=== PATIENT | female | born 1935 | race Caucasian/White ===

== ENCOUNTER 2017-09-15 15:49 | Inpatient (IN) | payer OTHER ==
[~2017-09-15] VITALS: Ht 165.1 cm; Wt 82.2 kg
[~2017-09-15 15:49] MED LIST: (None)20 M1 PO; ACET325 PO; ALBU90OI INH; ALBU90OI6 INH; ALBU90OI61 INH; ALEN70 PO; ALUM-MAG HYDRO360 ML PO; ALUMAG30SU PO; AMLO10 PO; AMOCLA875 PO; AMOX500 PO; ANORO ELLIPTA1 EACH INH; ANTAC+SIM PO; ARTIFICIAL TEAR30 ML BOTHEYES; ASPERCREME1 EACH TOP; ASPERCREME76.5 GM TOP; ASPI81EC PO; AZIT250 PO; AZIT500 PO; Acidophilus La100 GM PO; Advair Hfa 230-12 GM INH; Amoxicillin500 M1 PO; Aspir 8181 MG PO; BISA10S PR; BUDE.5 NEB; Bactrim 400-801 EACH PO; Biscolax10 MG PR; Brovana15 MCG/2 M INH; CALCA500CH PO; CALZINTL; CELE200 PO; CHLO25B PO; CHOL10002 PO; CIPR500 PO; CLARITIN10 MG PO; CLON.1 PO; CLON.3 PO; CODGUAEL PO; CVS DISPOSABLE399 ML; Calcium Carb 51 EACH PO; Calcium Carbon500 MG PO; Coumadin5 MG PO; DOCU100 PO; Diflucan200 MG PO; ENOX30I SC; Enema133 M1 PR; FAMO20 PO; FERR325 PO; FLUSAL2505 INH; FLUSAL5005 IH; FLUSAL5005 INH; FURO40 PO; Ferus150 MG PO; Fleet Enema132 ML PR; GENTAMICIN NEB; GENTEAL TEARS 015 M1 OP; GLYCAS PR; GUAI600T33 PO; HYDMETSO; HYDMETSO BOTHEYES; HYDR1TAB94 PO; HYDROGEN PEROXIDE TOP; Hair, Skin & N1 EACH PO; Humalog100 UNIT/1 SC; Hydrocodone-Ap1 EA23 PO; IPRAIS NEB; K-Dur20 MEQ PO; LEVFLO250; LEVO750 PO; LOPE2C PO; LORA10 PO; LORATADINE10 MG PO; Loperamide2 MG PO; Lopressor 25 mg25 MG PO; MELA3 PO; METF500 PO; METF500C PO; METO25 PO; METO50 PO; METPRE4DP PO; MULT50L PO; MULTI VITAMIN1 EACH PO; MULVITMIND PO; Micro-K10 MEQ PO; Milk Of Ma400 MG/5 M PO; NIFE30ER PO; NYST100000 PO; NYST100SU MT; NYST100SU SS; NYSTATIN TOP; Norco 5-325 Ta1 EACH PO; OMEP20ER PO; OMEPRAZOLE MAGN20 MG PO; ONDA4 PO; ONDA4ODT; ONDA4ODT MM; ONDA4ODT PO; ONDA8 PO; OXYACE5T PO; Omeprazole20 M1 PO; PHENERGAN25 MG PR; POLY17UD PO; POTCHL10ER PO; PRED10 PO; PRED20 PO; PRED5 PO; PROM12.5S PR; PROP30DR BOTHEYES; PYRI60 PO; Percocet 5-3251 EACH PO; Polysaccharide150 MG PO; Prednisone20 MG PO; QUET25 PO; SENN187 PO; SPIR50 PO; SYSTANE; Secura Protecti50 GM TOP; Senexon8.6 MG PO; Senna8.6 M1 PO; Senna8.6 MG PO; Systane 0.3-0.415 ML BOTHEYES; THERA TEARS BOTHEYES; TIOT18 INH; VITA&DTO TOP; VITAMIN D32000 UNIT PO; Ventolin Soln3 ML INH; Ventolin5 MG/1 ML INH; WARF10 PO; WARF3 PO; WARF4 PO; WARF5 PO; WARF6 PO; WARF7.5 PO; ZIPR20 PO; Zithromax200 MG/5 M PO; Zithromax250 MG PO; Zofran Odt4 MG SL; Zofran8 MG PO; [UNRECOGNIZED DRUG - OTHER] BOTHEYES; [UNRECOGNIZED DRUG - OTHER] TP
[2017-09-15] MEDS ORDERED: Ferus150 MG PO (16:34)
[2017-09-15] MEDS ORDERED: SACC250C PO (16:36)
[2017-09-15] MEDS ORDERED: FURO20 PO ×2 (16:38)
[2017-09-15] MEDS ORDERED: PRED10 PO (16:41)
[2017-09-15] MEDS ORDERED: PRED20 PO (16:41)
[2017-09-15 16:45] LABS: BASOPHILS ABSOLUTE AUTO 0.03 K/mm3 (0.00-0.23); BASOPHILS PERCENT AUTO 0 % (0-2); EOSINOPHILS ABSOLUTE AUTO 0.04 K/mm3 (0.00-0.68); EOSINOPHILS PERCENT AUTO 0 % (0-6); Hematocrit 50.6 % (33.0-51.0); Hemoglobin 16.1 g/dL (11.5-16.0); IMMATURE GRAN ABSOLUTE AUTO 0.13 K/mm3 (0.00-0.10); IMMATURE GRAN PERCENT AUTO 1 % (0-1); LYMPHOCYTES ABSOLUTE AUTO 1.75 K/mm3 (0.84-5.20); LYMPHOCYTES PERCENT AUTO 9 % (21-46); MONOCYTES ABSOLUTE AUTO 1.42 K/mm3 (0.16-1.47); MONOCYTES PERCENT AUTO 8 % (4-13); Mean Corpuscular HGB 30.6 pg (26.0-34.0); Mean Corpuscular HGB Conc 31.8 g/dL (31.5-36.5); Mean Corpuscular Volume 96 fL (80-100); Mean Platelet Volume 11.1 fL (9.1-12.4); NEUTROPHILS ABSOLUTE AUTO 15.58 K/mm3 (1.96-9.15); NEUTROPHILS PERCENT AUTO 82 % (41-73); Platelet Count 219 K/mm3 (150-400); RDW Coefficient Variation 15.9 % (11.7-14.2); RDW Standard Deviation 52.8 fL (35.1-46.3); Red Blood Cell Count 5.27 M/mm3 (3.80-5.20); White Blood Cell Count 18.95 K/mm3 (4.00-11.30)
[2017-09-15] MEDS ORDERED: ALBU90OI61 INH (16:45)
[2017-09-15 17:05] LABS: International Normalized Ratio 1.68; Prothrombin Time Results 17.8 Sec (9.7-11.5)
[2017-09-15 17:12] LABS: Source, Urine Catheter
[2017-09-15 17:17] LABS: Bilirubin, Urine Neg (Neg); Blood, Urine 1+ (Neg); Glucose Qualitative, Urine Neg (Neg); Ketones, Urine Neg (Neg); Leukocyte Esterase, Urine Neg (Neg); Nitrite, Urine Neg (Neg); Protein, Urine 2+ (Neg); Specific Gravity, Urine 1.015 (1.003-1.022); Urobilinogen, Urine NORM (Normal)
[2017-09-15 17:17] LABS: Albumin, Blood 3.4 g/dL (3.4-5.0); Albumin/Globulin Ratio 0.8 (0.8-1.8); Bilirubin, Total 0.7 mg/dL (0.1-1.0); Bun/Creatinine Ratio 21.6 (12.0-20.0); Calcium, Blood 9.2 mg/dL (8.5-10.1); Creatinine, Blood 1.11 mg/dL (0.40-1.00); Globulin, Blood 4.1 g/dL (2.2-4.0); Potassium, Blood 3.8 mmol/L (3.5-5.5); Total Protein, Blood 7.5 g/dL (6.4-8.2)
[2017-09-15 17:38] LABS: Appearance, Urine Clear (Clear); Bacteria Not Seen /hpf; Color, Urine Pale Yellow (P-Yellow); Red Blood Cells, Urine Not Seen /hpf (0-2); Squamous Epithelial Cells Not Seen /hpf (Few); White Blood Cells, Urine Not Seen /hpf (0-5)
[2017-09-15] MEDS ORDERED: ANORO ELLIPTA1 EACH INH (20:46)
[2017-09-16 03:55] LABS: International Normalized Ratio 1.6; Prothrombin Time Results 16.9 Sec (9.7-11.5)
[2017-09-16 09:58] LABS: BASOPHILS ABSOLUTE AUTO 0.03 K/mm3 (0.00-0.23); BASOPHILS PERCENT AUTO 0 % (0-2); EOSINOPHILS PERCENT AUTO 0 % (0-6); Hematocrit 43.1 % (33.0-51.0); Hemoglobin 13.5 g/dL (11.5-16.0); IMMATURE GRAN ABSOLUTE AUTO 0.07 K/mm3 (0.00-0.10); IMMATURE GRAN PERCENT AUTO 0 % (0-1); LYMPHOCYTES ABSOLUTE AUTO 0.65 K/mm3 (0.84-5.20); LYMPHOCYTES PERCENT AUTO 4 % (21-46); MONOCYTES ABSOLUTE AUTO 0.27 K/mm3 (0.16-1.47); MONOCYTES PERCENT AUTO 2 % (4-13); Mean Corpuscular HGB 30.9 pg (26.0-34.0); Mean Corpuscular HGB Conc 31.3 g/dL (31.5-36.5); Mean Corpuscular Volume 99 fL (80-100); Mean Platelet Volume 11.8 fL (9.1-12.4); NEUTROPHILS ABSOLUTE AUTO 15.29 K/mm3 (1.96-9.15); NEUTROPHILS PERCENT AUTO 94 % (41-73); Platelet Count 180 K/mm3 (150-400); RDW Coefficient Variation 15.9 % (11.7-14.2); RDW Standard Deviation 55.3 fL (35.1-46.3); Red Blood Cell Count 4.37 M/mm3 (3.80-5.20); White Blood Cell Count 16.31 K/mm3 (4.00-11.30)
[2017-09-16 10:28] LABS: Calcium, Blood 7.6 mg/dL (8.5-10.1); Creatinine, Blood 1.21 mg/dL (0.40-1.00); Potassium, Blood 4.2 mmol/L (3.5-5.5)
[2017-09-17 04:17] LABS: BASOPHILS ABSOLUTE AUTO 0.01 K/mm3 (0.00-0.23); BASOPHILS PERCENT AUTO 0 % (0-2); EOSINOPHILS PERCENT AUTO 0 % (0-6); Hematocrit 40.9 % (33.0-51.0); IMMATURE GRAN PERCENT AUTO 1 % (0-1); LYMPHOCYTES ABSOLUTE AUTO 0.69 K/mm3 (0.84-5.20); LYMPHOCYTES PERCENT AUTO 4 % (21-46); MONOCYTES ABSOLUTE AUTO 0.44 K/mm3 (0.16-1.47); MONOCYTES PERCENT AUTO 3 % (4-13); Mean Corpuscular HGB 30.8 pg (26.0-34.0); Mean Corpuscular HGB Conc 31.8 g/dL (31.5-36.5); Mean Corpuscular Volume 97 fL (80-100); Mean Platelet Volume 11.4 fL (9.1-12.4); NEUTROPHILS PERCENT AUTO 92 % (41-73); Platelet Count 159 K/mm3 (150-400); RDW Coefficient Variation 15.7 % (11.7-14.2); RDW Standard Deviation 53.8 fL (35.1-46.3); Red Blood Cell Count 4.22 M/mm3 (3.80-5.20); White Blood Cell Count 15.84 K/mm3 (4.00-11.30)
[2017-09-17 04:32] LABS: International Normalized Ratio 2.01; Prothrombin Time Results 21.4 Sec (9.7-11.5)
[2017-09-17 04:34] LABS: Bun/Creatinine Ratio 31.5 (12.0-20.0); Calcium, Blood 7.5 mg/dL (8.5-10.1); Creatinine, Blood 1.08 mg/dL (0.40-1.00); Potassium, Blood 4.6 mmol/L (3.5-5.5)
[2017-09-17 21:21] LABS: Vancomycin, Trough 9.1 ug/mL (5.0-10.0)
[2017-09-18 05:10] LABS: BASOPHILS ABSOLUTE AUTO 0.01 K/mm3 (0.00-0.23); BASOPHILS PERCENT AUTO 0 % (0-2); EOSINOPHILS PERCENT AUTO 0 % (0-6); Hematocrit 39.7 % (33.0-51.0); Hemoglobin 12.7 g/dL (11.5-16.0); IMMATURE GRAN ABSOLUTE AUTO 0.14 K/mm3 (0.00-0.10); IMMATURE GRAN PERCENT AUTO 1 % (0-1); LYMPHOCYTES ABSOLUTE AUTO 0.41 K/mm3 (0.84-5.20); LYMPHOCYTES PERCENT AUTO 2 % (21-46); MONOCYTES ABSOLUTE AUTO 0.52 K/mm3 (0.16-1.47); MONOCYTES PERCENT AUTO 3 % (4-13); Mean Corpuscular Volume 97 fL (80-100); Mean Platelet Volume 11.7 fL (9.1-12.4); NEUTROPHILS ABSOLUTE AUTO 16.37 K/mm3 (1.96-9.15); NEUTROPHILS PERCENT AUTO 94 % (41-73); Platelet Count 153 K/mm3 (150-400); RDW Coefficient Variation 15.7 % (11.7-14.2); RDW Standard Deviation 53.1 fL (35.1-46.3); White Blood Cell Count 17.45 K/mm3 (4.00-11.30)
[2017-09-18 05:23] LABS: International Normalized Ratio 3.04; Prothrombin Time Results 32.7 Sec (9.7-11.5)
[2017-09-18 05:28] LABS: Bun/Creatinine Ratio 44.6 (12.0-20.0); Calcium, Blood 7.9 mg/dL (8.5-10.1); Creatinine, Blood 1.01 mg/dL (0.40-1.00); Potassium, Blood 4.6 mmol/L (3.5-5.5)
[2017-09-18] MEDS ORDERED: LEVFLO500 PO (14:58)
== END 2017-09-18 15:26 | disposition home or self-care (01) | DRG 871 ==
LOC: ER 15:49 → PCU 18:26 → MEDS 20:05 → PCU 20:10 → MEDS 09-17 18:12
PROVIDERS: Emergency Medicine; Family Medicine
DX: A41.9 Sepsis, unspecified organism (principal); G93.41 Metabolic encephalopathy; N17.8 Other acute kidney failure; I48.91 Unspecified atrial fibrillation; Z79.01 Long term (current) use of anticoagulants; Z79.84 Long term (current) use of oral hypoglycemic drugs; G70.00 Myasthenia gravis without (acute) exacerbation; Z79.52 Long term (current) use of systemic steroids; K21.9 Gastro-esophageal reflux disease without esophagitis; M19.90 Unspecified osteoarthritis, unspecified site; K59.09 Other constipation; Z77.22 Contact with and (suspected) exposure to environmental tobacco smoke (acute) (chronic); I16.0 Hypertensive urgency; K27.9 Peptic ulcer, site unspecified, unspecified as acute or chronic, without hemorrhage or perforation; K08.109 Complete loss of teeth, unspecified cause, unspecified class; R53.81 Other malaise; Z88.1 Allergy status to other antibiotic agents; I69.322 Dysarthria following cerebral infarction; I69.391 Dysphagia following cerebral infarction; R13.10 Dysphagia, unspecified; T36.1X5A Adverse effect of cephalosporins and other beta-lactam antibiotics, initial encounter; Y92.239 Unspecified place in hospital as the place of occurrence of the external cause; R23.2 Flushing; D89.9 Disorder involving the immune mechanism, unspecified; K52.9 Noninfective gastroenteritis and colitis, unspecified; Z85.828 Personal history of other malignant neoplasm of skin; Z87.81 Personal history of (healed) traumatic fracture; J44.9 Chronic obstructive pulmonary disease, unspecified; E09.65 Drug or chemical induced diabetes mellitus with hyperglycemia; N18.3 Chronic kidney disease, stage 3 (moderate); I12.9 Hypertensive chronic kidney disease with stage 1 through stage 4 chronic kidney disease, or unspecified chronic kidney disease; E09.22 Drug or chemical induced diabetes mellitus with diabetic chronic kidney disease
CPT/HCPCS: 36415; 70450; 71046; 80048; 80053; 80202; 81001; 82947; 83036; 83605; 84484; 85025; 85610; 92526; 92610; 93005; 93010; 94640; 94760; 96365; 96367; 96375; 97162; 97166; 97535; 99285; C9113; G8978; G8979; G8980; G8987; G8988; G8989; G8996; G8997; G8998; J1200; J1956; J2185; J2405; J2930; J3370; J7030; P9612

== ENCOUNTER → 2017-09-27 | Outpatient (CLI) | payer OTHER ==
[~2017-09-27] MED LIST changes: +ASPI81CH PO; +CEPH500 PO; +FURO20 PO; +GAVILAX17 GM PO; +LEVFLO500 PO; +SACC250C PO; +Senna Plus Tab1 EACH PO
[2017-09-27 16:24] LABS: Bilirubin, Urine Neg (Neg); Blood, Urine Neg (Neg); Glucose Qualitative, Urine Neg (Neg); Ketones, Urine Neg (Neg); Leukocyte Esterase, Urine Neg (Neg); Nitrite, Urine Neg (Neg); Protein, Urine 1+ (Neg); Specific Gravity, Urine 1.015 (1.003-1.022); Urobilinogen, Urine NORM (Normal)
[2017-09-27 16:31] LABS: Appearance, Urine Clear (Clear); Color, Urine Yellow (P-Yellow)
== END ==
LOC: LAB SHORT 13:40 → LAB 13:40
PROVIDERS: Family Medicine
DX: R39.15 Urgency of urination (principal)
CPT/HCPCS: 81003

== ENCOUNTER 2017-09-29 13:56 | Inpatient (IN) | payer OTHER ==
[~2017-09-29] VITALS: Ht 167.6 cm; Wt 79.3 kg
[~2017-09-29 13:56] MED LIST changes: -ASPI81CH PO; -CEPH500 PO; -GAVILAX17 GM PO; -Senna Plus Tab1 EACH PO
[2017-09-29] MEDS ORDERED: LOPE2C PO (14:33)
[2017-09-29 14:36] LABS: BASOPHILS ABSOLUTE AUTO 0.04 K/mm3 (0.00-0.23); BASOPHILS PERCENT AUTO 0 % (0-2); EOSINOPHILS ABSOLUTE AUTO 0.01 K/mm3 (0.00-0.68); EOSINOPHILS PERCENT AUTO 0 % (0-6); Hematocrit 45.8 % (33.0-51.0); Hemoglobin 14.8 g/dL (11.5-16.0); IMMATURE GRAN ABSOLUTE AUTO 0.12 K/mm3 (0.00-0.10); IMMATURE GRAN PERCENT AUTO 1 % (0-1); LYMPHOCYTES ABSOLUTE AUTO 1.68 K/mm3 (0.84-5.20); LYMPHOCYTES PERCENT AUTO 10 % (21-46); MONOCYTES ABSOLUTE AUTO 0.79 K/mm3 (0.16-1.47); MONOCYTES PERCENT AUTO 5 % (4-13); Mean Corpuscular HGB 31.1 pg (26.0-34.0); Mean Corpuscular HGB Conc 32.3 g/dL (31.5-36.5); Mean Corpuscular Volume 96 fL (80-100); Mean Platelet Volume 10.7 fL (9.1-12.4); NEUTROPHILS ABSOLUTE AUTO 14.41 K/mm3 (1.96-9.15); NEUTROPHILS PERCENT AUTO 85 % (41-73); Platelet Count 216 K/mm3 (150-400); RDW Coefficient Variation 14.7 % (11.7-14.2); RDW Standard Deviation 51.8 fL (35.1-46.3); Red Blood Cell Count 4.76 M/mm3 (3.80-5.20); White Blood Cell Count 17.05 K/mm3 (4.00-11.30)
[2017-09-29 14:49] LABS: Source, Urine Clean Catch
[2017-09-29 14:52] LABS: International Normalized Ratio 2.19; Prothrombin Time Results 21.6 Sec (9.7-11.5)
[2017-09-29 14:53] LABS: Bilirubin, Urine Neg (Neg); Blood, Urine Neg (Neg); Glucose Qualitative, Urine Neg (Neg); Ketones, Urine Neg (Neg); Leukocyte Esterase, Urine Neg (Neg); Nitrite, Urine Neg (Neg); Protein, Urine 1+ (Neg); Specific Gravity, Urine 1.015 (1.003-1.022); Urobilinogen, Urine NORM (Normal)
[2017-09-29 15:11] LABS: Appearance, Urine Clear (Clear); Color, Urine Yellow (P-Yellow)
[2017-09-29 17:16] LABS: Alanine Aminotransfer (ALT/SGP 41 U/L (12-78); Albumin, Blood 2.9 g/dL (3.4-5.0); Albumin/Globulin Ratio 0.8 (0.8-1.8); Alk Phos 50 U/L (50-136); Anion Gap 9 mmol/L (6-16); Aspartate Aminotrans (AST/SGOT 39 U/L (12-37); Bilirubin, Total 0.6 mg/dL (0.1-1.0); Blood Urea Nitrogen 26 mg/dL (8-24); Bun/Creatinine Ratio 26.4 (12.0-20.0); CO2, Blood 28 mmol/L (21-32); Calcium, Blood 8.9 mg/dL (8.5-10.1); Chloride, Blood 103 mmol/L (98-108); Creatinine, Blood 0.98 mg/dL (0.40-1.00); Globulin, Blood 3.5 g/dL (2.2-4.0); Glomerular Filtration Rate 58 (60-); Glucose, Blood 170 mg/dL (70-99); Potassium, Blood 4.1 mmol/L (3.5-5.5); Sodium, Blood 140 mmol/L (136-145); Total Protein, Blood 6.4 g/dL (6.4-8.2); Troponin I <0.015 ng/mL (0.000-0.040)
[2017-09-30 03:47] LABS: Hematocrit 43.6 % (33.0-51.0); Hemoglobin 14.2 g/dL (11.5-16.0); Mean Corpuscular HGB 30.9 pg (26.0-34.0); Mean Corpuscular HGB Conc 32.6 g/dL (31.5-36.5); Mean Corpuscular Volume 95 fL (80-100); Platelet Count 203 K/mm3 (150-400); RDW Coefficient Variation 15.1 % (11.7-14.2); RDW Standard Deviation 51.8 fL (35.1-46.3); Red Blood Cell Count 4.59 M/mm3 (3.80-5.20); White Blood Cell Count 17.99 K/mm3 (4.00-11.30)
[2017-09-30 04:09] LABS: Albumin, Blood 2.7 g/dL (3.4-5.0); Albumin/Globulin Ratio 0.9 (0.8-1.8); Bun/Creatinine Ratio 15.3 (12.0-20.0); Calcium, Blood 8.3 mg/dL (8.5-10.1); Creatinine, Blood 1.83 mg/dL (0.40-1.00); Globulin, Blood 3.1 g/dL (2.2-4.0); Potassium, Blood 3.8 mmol/L (3.5-5.5); Total Protein, Blood 5.8 g/dL (6.4-8.2)
[2017-09-30] MEDS ORDERED: SACC250C PO (11:30)
[2017-09-30] MEDS ORDERED: WARF4 PO (11:33)
[2017-10-01 04:00] LABS: BASOPHILS ABSOLUTE AUTO 0.03 K/mm3 (0.00-0.23); BASOPHILS PERCENT AUTO 0 % (0-2); EOSINOPHILS ABSOLUTE AUTO 0.06 K/mm3 (0.00-0.68); EOSINOPHILS PERCENT AUTO 0 % (0-6); Hematocrit 39.8 % (33.0-51.0); Hemoglobin 12.5 g/dL (11.5-16.0); IMMATURE GRAN ABSOLUTE AUTO 0.12 K/mm3 (0.00-0.10); IMMATURE GRAN PERCENT AUTO 1 % (0-1); LYMPHOCYTES PERCENT AUTO 9 % (21-46); MONOCYTES ABSOLUTE AUTO 1.42 K/mm3 (0.16-1.47); MONOCYTES PERCENT AUTO 9 % (4-13); Mean Corpuscular HGB 30.5 pg (26.0-34.0); Mean Corpuscular HGB Conc 31.4 g/dL (31.5-36.5); Mean Corpuscular Volume 97 fL (80-100); Mean Platelet Volume 11.5 fL (9.1-12.4); NEUTROPHILS ABSOLUTE AUTO 13.23 K/mm3 (1.96-9.15); NEUTROPHILS PERCENT AUTO 81 % (41-73); Platelet Count 167 K/mm3 (150-400); RDW Coefficient Variation 15.1 % (11.7-14.2); RDW Standard Deviation 53.6 fL (35.1-46.3); White Blood Cell Count 16.26 K/mm3 (4.00-11.30)
[2017-10-01 04:19] LABS: Albumin, Blood 2.4 g/dL (3.4-5.0); Anion Gap 7 mmol/L (6-16); Blood Urea Nitrogen 37 mg/dL (8-24); Bun/Creatinine Ratio 26.4 (12.0-20.0); CO2, Blood 31 mmol/L (21-32); Calcium, Blood 7.4 mg/dL (8.5-10.1); Chloride, Blood 105 mmol/L (98-108); Glomerular Filtration Rate 38 (60-); Glucose, Blood 83 mg/dL (70-99); Phosphorus, Blood 3.3 mg/dL (2.5-4.9); Potassium, Blood 3.7 mmol/L (3.5-5.5); Sodium, Blood 143 mmol/L (136-145)
[2017-10-01 10:38] LABS: Source, Urine Clean Catch
[2017-10-01 10:47] LABS: Bilirubin, Urine Neg (Neg); Blood, Urine 1+ (Neg); Glucose Qualitative, Urine Neg (Neg); Ketones, Urine Neg (Neg); Leukocyte Esterase, Urine 1+ (Neg); Nitrite, Urine Neg (Neg); Protein, Urine 2+ (Neg); Urobilinogen, Urine NORM (Normal)
[2017-10-01 11:16] LABS: Appearance, Urine Clear (Clear); Color, Urine Yellow (P-Yellow)
[2017-10-01 11:18] LABS: Bacteria Few /hpf; Red Blood Cells, Urine 0-2 /hpf (0-2); Squamous Epithelial Cells Few /hpf (Few)
[2017-10-02 03:51] LABS: BASOPHILS ABSOLUTE AUTO 0.03 K/mm3 (0.00-0.23); BASOPHILS PERCENT AUTO 0 % (0-2); EOSINOPHILS PERCENT AUTO 1 % (0-6); Hematocrit 34.5 % (33.0-51.0); Hemoglobin 11.1 g/dL (11.5-16.0); IMMATURE GRAN ABSOLUTE AUTO 0.12 K/mm3 (0.00-0.10); IMMATURE GRAN PERCENT AUTO 1 % (0-1); LYMPHOCYTES ABSOLUTE AUTO 1.16 K/mm3 (0.84-5.20); LYMPHOCYTES PERCENT AUTO 7 % (21-46); MONOCYTES ABSOLUTE AUTO 1.15 K/mm3 (0.16-1.47); MONOCYTES PERCENT AUTO 7 % (4-13); Mean Corpuscular HGB 30.9 pg (26.0-34.0); Mean Corpuscular HGB Conc 32.2 g/dL (31.5-36.5); Mean Corpuscular Volume 96 fL (80-100); Mean Platelet Volume 11.1 fL (9.1-12.4); NEUTROPHILS ABSOLUTE AUTO 13.24 K/mm3 (1.96-9.15); NEUTROPHILS PERCENT AUTO 84 % (41-73); Platelet Count 147 K/mm3 (150-400); RDW Coefficient Variation 14.6 % (11.7-14.2); RDW Standard Deviation 50.9 fL (35.1-46.3); Red Blood Cell Count 3.59 M/mm3 (3.80-5.20)
[2017-10-02 04:10] LABS: Albumin, Blood 2.2 g/dL (3.4-5.0); Anion Gap 7 mmol/L (6-16); Blood Urea Nitrogen 37 mg/dL (8-24); Bun/Creatinine Ratio 39.4 (12.0-20.0); CO2, Blood 28 mmol/L (21-32); Calcium, Blood 7.6 mg/dL (8.5-10.1); Chloride, Blood 106 mmol/L (98-108); Creatinine, Blood 0.94 mg/dL (0.40-1.00); Glomerular Filtration Rate >60 (60-); Glucose, Blood 104 mg/dL (70-99); Phosphorus, Blood 1.9 mg/dL (2.5-4.9); Potassium, Blood 3.8 mmol/L (3.5-5.5); Sodium, Blood 141 mmol/L (136-145)
[2017-10-02 09:49] LABS: International Normalized Ratio 1.28
[2017-10-03 05:33] LABS: International Normalized Ratio 1.21; Prothrombin Time Results 12.3 Sec (9.7-11.5)
[2017-10-03 05:44] LABS: Albumin, Blood 2.7 g/dL (3.4-5.0); Anion Gap 10 mmol/L (6-16); Blood Urea Nitrogen 32 mg/dL (8-24); CO2, Blood 27 mmol/L (21-32); Calcium, Blood 8.4 mg/dL (8.5-10.1); Chloride, Blood 107 mmol/L (98-108); Creatinine, Blood 0.89 mg/dL (0.40-1.00); Glomerular Filtration Rate >60 (60-); Glucose, Blood 89 mg/dL (70-99); Phosphorus, Blood 1.9 mg/dL (2.5-4.9); Potassium, Blood 3.6 mmol/L (3.5-5.5); Sodium, Blood 144 mmol/L (136-145)
[2017-10-04 05:38] LABS: Anion Gap 10 mmol/L (6-16); Blood Urea Nitrogen 26 mg/dL (8-24); Bun/Creatinine Ratio 31.6 (12.0-20.0); CO2, Blood 26 mmol/L (21-32); Calcium, Blood 7.3 mg/dL (8.5-10.1); Chloride, Blood 107 mmol/L (98-108); Creatinine, Blood 0.82 mg/dL (0.40-1.00); Glomerular Filtration Rate >60 (60-); Glucose, Blood 78 mg/dL (70-99); Potassium, Blood 4.4 mmol/L (3.5-5.5); Sodium, Blood 143 mmol/L (136-145)
[2017-10-04 05:44] LABS: BASOPHILS ABSOLUTE AUTO 0.03 K/mm3 (0.00-0.23); BASOPHILS PERCENT AUTO 0 % (0-2); EOSINOPHILS PERCENT AUTO 2 % (0-6); Hematocrit 38.1 % (33.0-51.0); Hemoglobin 12.2 g/dL (11.5-16.0); IMMATURE GRAN ABSOLUTE AUTO 0.08 K/mm3 (0.00-0.10); IMMATURE GRAN PERCENT AUTO 1 % (0-1); LYMPHOCYTES ABSOLUTE AUTO 1.53 K/mm3 (0.84-5.20); LYMPHOCYTES PERCENT AUTO 11 % (21-46); MONOCYTES PERCENT AUTO 9 % (4-13); Mean Corpuscular HGB 31.1 pg (26.0-34.0); Mean Corpuscular Volume 97 fL (80-100); Mean Platelet Volume 11.6 fL (9.1-12.4); NEUTROPHILS ABSOLUTE AUTO 10.67 K/mm3 (1.96-9.15); NEUTROPHILS PERCENT AUTO 77 % (41-73); Platelet Count 175 K/mm3 (150-400); RDW Coefficient Variation 14.9 % (11.7-14.2); RDW Standard Deviation 52.7 fL (35.1-46.3); Red Blood Cell Count 3.92 M/mm3 (3.80-5.20); White Blood Cell Count 13.91 K/mm3 (4.00-11.30)
[2017-10-04 05:56] LABS: International Normalized Ratio 1.37; Prothrombin Time Results 13.9 Sec (9.7-11.5)
[2017-10-05 05:26] LABS: International Normalized Ratio 1.53; Prothrombin Time Results 15.4 Sec (9.7-11.5)
[2017-10-06 05:28] LABS: BASOPHILS ABSOLUTE AUTO 0.02 K/mm3 (0.00-0.23); BASOPHILS PERCENT AUTO 0 % (0-2); EOSINOPHILS ABSOLUTE AUTO 0.14 K/mm3 (0.00-0.68); EOSINOPHILS PERCENT AUTO 1 % (0-6); Hematocrit 32.7 % (33.0-51.0); Hemoglobin 10.7 g/dL (11.5-16.0); IMMATURE GRAN ABSOLUTE AUTO 0.08 K/mm3 (0.00-0.10); IMMATURE GRAN PERCENT AUTO 1 % (0-1); LYMPHOCYTES ABSOLUTE AUTO 1.15 K/mm3 (0.84-5.20); LYMPHOCYTES PERCENT AUTO 7 % (21-46); MONOCYTES ABSOLUTE AUTO 1.31 K/mm3 (0.16-1.47); MONOCYTES PERCENT AUTO 7 % (4-13); Mean Corpuscular HGB 31.8 pg (26.0-34.0); Mean Corpuscular HGB Conc 32.7 g/dL (31.5-36.5); Mean Corpuscular Volume 97 fL (80-100); Mean Platelet Volume 11.7 fL (9.1-12.4); NEUTROPHILS ABSOLUTE AUTO 15.02 K/mm3 (1.96-9.15); NEUTROPHILS PERCENT AUTO 85 % (41-73); Platelet Count 173 K/mm3 (150-400); RDW Coefficient Variation 14.9 % (11.7-14.2); RDW Standard Deviation 52.7 fL (35.1-46.3); Red Blood Cell Count 3.37 M/mm3 (3.80-5.20); White Blood Cell Count 17.72 K/mm3 (4.00-11.30)
[2017-10-06 05:38] LABS: D-Dimer, Quantitative 1.05 mg/L FEU (0.00-0.52); International Normalized Ratio 1.88; Prothrombin Time Results 18.7 Sec (9.7-11.5)
[2017-10-06 06:16] LABS: Anion Gap 8 mmol/L (6-16); Blood Urea Nitrogen 35 mg/dL (8-24); Bun/Creatinine Ratio 37.1 (12.0-20.0); CO2, Blood 30 mmol/L (21-32); Calcium, Blood 7.7 mg/dL (8.5-10.1); Chloride, Blood 102 mmol/L (98-108); Creatinine, Blood 0.94 mg/dL (0.40-1.00); Glomerular Filtration Rate >60 (60-); Glucose, Blood 150 mg/dL (70-99); Potassium, Blood 3.7 mmol/L (3.5-5.5); Sodium, Blood 140 mmol/L (136-145)
[2017-10-07 06:50] LABS: International Normalized Ratio 2.31; Prothrombin Time Results 22.7 Sec (9.7-11.5)
[2017-10-07 18:46] LABS: Source, Urine Catheter
[2017-10-07 19:23] LABS: Bilirubin, Urine Neg (Neg); Blood, Urine Neg (Neg); Glucose Qualitative, Urine Neg (Neg); Ketones, Urine Neg (Neg); Leukocyte Esterase, Urine 1+ (Neg); Nitrite, Urine Neg (Neg); Protein, Urine Neg (Neg); Urobilinogen, Urine NORM (Normal)
[2017-10-07 19:34] LABS: Appearance, Urine Clear (Clear); Color, Urine Yellow (P-Yellow)
[2017-10-07 19:35] LABS: Bacteria Few /hpf; Red Blood Cells, Urine 0-2 /hpf (0-2); Squamous Epithelial Cells Not Seen /hpf (Few); Yeast/Fungi Urine Mod /hpf
[2017-10-08 05:42] LABS: BASOPHILS ABSOLUTE AUTO 0.02 K/mm3 (0.00-0.23); BASOPHILS PERCENT AUTO 0 % (0-2); EOSINOPHILS ABSOLUTE AUTO 0.29 K/mm3 (0.00-0.68); EOSINOPHILS PERCENT AUTO 3 % (0-6); Hematocrit 34.7 % (33.0-51.0); Hemoglobin 11.1 g/dL (11.5-16.0); IMMATURE GRAN ABSOLUTE AUTO 0.08 K/mm3 (0.00-0.10); IMMATURE GRAN PERCENT AUTO 1 % (0-1); LYMPHOCYTES ABSOLUTE AUTO 1.36 K/mm3 (0.84-5.20); LYMPHOCYTES PERCENT AUTO 14 % (21-46); MONOCYTES ABSOLUTE AUTO 1.14 K/mm3 (0.16-1.47); MONOCYTES PERCENT AUTO 12 % (4-13); Mean Corpuscular HGB 30.7 pg (26.0-34.0); Mean Corpuscular Volume 96 fL (80-100); Mean Platelet Volume 11.9 fL (9.1-12.4); NEUTROPHILS ABSOLUTE AUTO 6.64 K/mm3 (1.96-9.15); NEUTROPHILS PERCENT AUTO 70 % (41-73); Platelet Count 248 K/mm3 (150-400); RDW Coefficient Variation 14.6 % (11.7-14.2); RDW Standard Deviation 51.1 fL (35.1-46.3); Red Blood Cell Count 3.62 M/mm3 (3.80-5.20); White Blood Cell Count 9.53 K/mm3 (4.00-11.30)
[2017-10-08 05:55] LABS: International Normalized Ratio 2.89
[2017-10-08 06:04] LABS: Albumin, Blood 2.2 g/dL (3.4-5.0); Anion Gap 9 mmol/L (6-16); Blood Urea Nitrogen 24 mg/dL (8-24); Bun/Creatinine Ratio 25.9 (12.0-20.0); CO2, Blood 31 mmol/L (21-32); Calcium, Blood 8.2 mg/dL (8.5-10.1); Chloride, Blood 101 mmol/L (98-108); Creatinine, Blood 0.93 mg/dL (0.40-1.00); Glomerular Filtration Rate >60 (60-); Glucose, Blood 79 mg/dL (70-99); Magnesium, Blood 2.1 mg/dL (1.6-2.4); Phosphorus, Blood 4.1 mg/dL (2.5-4.9); Potassium, Blood 3.5 mmol/L (3.5-5.5); Sodium, Blood 141 mmol/L (136-145)
[2017-10-09 05:24] LABS: International Normalized Ratio 3.69; Prothrombin Time Results 35.3 Sec (9.7-11.5)
[2017-10-09] MEDS ORDERED: CEPH500 PO (12:30)
[2017-10-09] MEDS ORDERED: ASPI81CH PO (12:30)
[2017-10-09] MEDS ORDERED: CHLO25B PO (12:30)
[2017-10-09] MEDS ORDERED: MELA3 PO (12:31)
[2017-10-09] MEDS ORDERED: METO50 PO (12:31)
[2017-10-09] MEDS ORDERED: NYST100000 PO (12:31)
[2017-10-09] MEDS ORDERED: Senna Plus Tab1 EACH PO (12:32)
[2017-10-09] MEDS ORDERED: GAVILAX17 GM PO (12:32)
== END 2017-10-09 14:31 | disposition home health service (06) | DRG 77 ==
LOC: ER 13:56 → ICUW 16:31 → PCU 16:31 → MEDS 16:31 → PCU 18:03 → ICUW 09-30 08:50 → MEDS 10-02 14:58 → ENPENDDIS 10-09 11:14 → MEDS 10-09 14:31
PROVIDERS: Emergency Medicine; Internal Medicine; Pharmacist; Pharmacist Pharmacotherapy
DX: I67.4 Hypertensive encephalopathy (principal); N17.0 Acute kidney failure with tubular necrosis; I13.0 Hypertensive heart and chronic kidney disease with heart failure and stage 1 through stage 4 chronic kidney disease, or unspecified chronic kidney disease; R44.3 Hallucinations, unspecified; B37.0 Candidal stomatitis; I16.0 Hypertensive urgency; Z99.81 Dependence on supplemental oxygen; J44.9 Chronic obstructive pulmonary disease, unspecified; Z79.01 Long term (current) use of anticoagulants; Z66 Do not resuscitate; K21.9 Gastro-esophageal reflux disease without esophagitis; G70.00 Myasthenia gravis without (acute) exacerbation; I95.9 Hypotension, unspecified; T46.5X5A Adverse effect of other antihypertensive drugs, initial encounter; Y92.239 Unspecified place in hospital as the place of occurrence of the external cause; D69.2 Other nonthrombocytopenic purpura; N76.0 Acute vaginitis; I67.9 Cerebrovascular disease, unspecified; E11.22 Type 2 diabetes mellitus with diabetic chronic kidney disease; N18.9 Chronic kidney disease, unspecified; R53.1 Weakness
CPT/HCPCS: 36415; 51702; 70450; 71046; 80048; 80053; 80069; 81001; 82947; 83605; 83735; 83880; 84145; 84484; 85025; 85027; 85379; 85384; 85610; 85730; 87040; 87086; 92610; 93005; 93010; 93880; 94640; 94760; 96374; 96375; 97116; 97163; 97166; 97530; 97535; 99285; G8978; G8979; G8987; G8988; G8996; G8997; G8998; J0360; J0692; J1940; J1956; J2405; J7030; J7050

== ENCOUNTER 2017-11-24 14:28 | Emergency (ER) | payer OTHER ==
[~2017-11-24] VITALS: Ht 165.1 cm; Wt 86.2 kg
[~2017-11-24 14:28] MED LIST changes: +ALBU3IS INH; +ASPI81CH PO; +CEPH500 PO; +Calcium + Vita1 EACH PO; +FLUT1DIS5 INH; +GAVILAX17 GM PO; +MIRALAX17 GM PO; +SACC250C; +Senna Plus Tab1 EACH PO; +Zofran Odt8 MG PO; +Zofran Odt8 MG SL
[2017-11-24] MEDS ORDERED: MORP20L PO (14:56)
[2017-11-24] MEDS ORDERED: CEFP200 PO (15:34)
== END 2017-11-24 15:52 | disposition home or self-care (01) ==
LOC: ER 14:28
DX: J44.0 Chronic obstructive pulmonary disease with (acute) lower respiratory infection (principal); J18.9 Pneumonia, unspecified organism; J20.9 Acute bronchitis, unspecified; I11.0 Hypertensive heart disease with heart failure; I50.9 Heart failure, unspecified; E11.9 Type 2 diabetes mellitus without complications; I48.91 Unspecified atrial fibrillation; K21.9 Gastro-esophageal reflux disease without esophagitis; Z86.73 Personal history of transient ischemic attack (TIA), and cerebral infarction without residual deficits; Z86.718 Personal history of other venous thrombosis and embolism; Z79.899 Other long term (current) drug therapy; Z79.52 Long term (current) use of systemic steroids; Z79.51 Long term (current) use of inhaled steroids
CPT/HCPCS: 71046; 99283-25

== ENCOUNTER 2018-02-18 08:30 | Emergency (ER) | payer OTHER ==
[~2018-02-18] VITALS: Ht 167.6 cm; Wt 75.3 kg
[~2018-02-18 08:30] MED LIST changes: +Advair Hfa 230-12 GM; +CEFP200 PO; +COMBIVENT RESPIM4 GM INH; +ELIQUIS2.5 MG PO; +K-TAB ER20 MEQ PO; +METO25; +MORP20L PO; -Senna Plus Tab1 EACH PO; +Senna-Docusate1 EACH PO; -Zofran Odt8 MG PO
[2018-02-18 08:51] LABS: Source, Urine Catheter
[2018-02-18 09:00] LABS: BASOPHILS ABSOLUTE AUTO 0.03 K/mm3 (0.00-0.23); BASOPHILS PERCENT AUTO 0 % (0-2); EOSINOPHILS ABSOLUTE AUTO 0.09 K/mm3 (0.00-0.68); EOSINOPHILS PERCENT AUTO 1 % (0-6); Hematocrit 45.2 % (33.0-51.0); Hemoglobin 14.2 g/dL (11.5-16.0); IMMATURE GRAN ABSOLUTE AUTO 0.06 K/mm3 (0.00-0.10); IMMATURE GRAN PERCENT AUTO 0 % (0-1); LYMPHOCYTES ABSOLUTE AUTO 1.64 K/mm3 (0.84-5.20); LYMPHOCYTES PERCENT AUTO 10 % (21-46); MONOCYTES ABSOLUTE AUTO 1.75 K/mm3 (0.16-1.47); MONOCYTES PERCENT AUTO 11 % (4-13); Mean Corpuscular HGB 29.6 pg (26.0-34.0); Mean Corpuscular HGB Conc 31.4 g/dL (31.5-36.5); Mean Corpuscular Volume 94 fL (80-100); Mean Platelet Volume 11.7 fL (9.1-12.4); NEUTROPHILS ABSOLUTE AUTO 12.34 K/mm3 (1.96-9.15); NEUTROPHILS PERCENT AUTO 78 % (41-73); Platelet Count 181 K/mm3 (150-400); RDW Coefficient Variation 14.4 % (11.7-14.2); RDW Standard Deviation 50.1 fL (35.1-46.3); Red Blood Cell Count 4.79 M/mm3 (3.80-5.20); White Blood Cell Count 15.91 K/mm3 (4.00-11.30)
[2018-02-18 09:01] LABS: Bilirubin, Urine Neg (Neg); Blood, Urine Neg (Neg); Glucose Qualitative, Urine Neg (Neg); Ketones, Urine Neg (Neg); Leukocyte Esterase, Urine Neg (Neg); Nitrite, Urine Neg (Neg); Protein, Urine 2+ (Neg); Urobilinogen, Urine NORM (Normal)
[2018-02-18 09:16] LABS: Appearance, Urine Clear (Clear); Color, Urine Yellow (P-Yellow)
[2018-02-18 09:25] LABS: Bacteria Not Seen /hpf; Red Blood Cells, Urine Not Seen /hpf (0-2); Squamous Epithelial Cells Rare /hpf (Few); White Blood Cells, Urine Not Seen /hpf (0-5)
[2018-02-18 10:11] LABS: Alanine Aminotransfer (ALT/SGP 27 U/L (12-78); Albumin/Globulin Ratio 0.8 (0.8-1.8); Alk Phos 57 U/L (50-136); Anion Gap 8 mmol/L (6-16); Aspartate Aminotrans (AST/SGOT 22 U/L (12-37); Bilirubin, Total 0.3 mg/dL (0.1-1.0); Blood Urea Nitrogen 22 mg/dL (8-24); Bun/Creatinine Ratio 26.2 (12.0-20.0); CO2, Blood 32 mmol/L (21-32); Calcium, Blood 8.5 mg/dL (8.5-10.1); Chloride, Blood 100 mmol/L (98-108); Creatinine, Blood 0.84 mg/dL (0.40-1.00); Globulin, Blood 3.6 g/dL (2.2-4.0); Glomerular Filtration Rate >60 (60-); Glucose, Blood 117 mg/dL (70-99); Potassium, Blood 3.4 mmol/L (3.5-5.5); Sodium, Blood 140 mmol/L (136-145); Total Protein, Blood 6.6 g/dL (6.4-8.2)
[2018-02-18] MEDS ORDERED: Citroma296 ML PO (10:31)
[2018-02-18] MEDS ORDERED: Zofran Odt4 MG SL (10:32)
== END 2018-02-18 10:50 | disposition home or self-care (01) ==
LOC: ER 08:30
PROVIDERS: Nurse Practitioner Family
DX: K52.9 Noninfective gastroenteritis and colitis, unspecified (principal); Z88.8 Allergy status to other drugs, medicaments and biological substances; Z91.013 Allergy to seafood; Z79.899 Other long term (current) drug therapy; Z79.52 Long term (current) use of systemic steroids; I12.9 Hypertensive chronic kidney disease with stage 1 through stage 4 chronic kidney disease, or unspecified chronic kidney disease; E11.22 Type 2 diabetes mellitus with diabetic chronic kidney disease; N18.9 Chronic kidney disease, unspecified; I48.91 Unspecified atrial fibrillation
CPT/HCPCS: 74018; 80053; 81001; 85025; 96361; 96374; 99284-25; J2405; J7030; P9612

== ENCOUNTER 2018-04-05 18:26 | Emergency (ER) | payer OTHER ==
[~2018-04-05] VITALS: Ht 167.6 cm; Wt 75.8 kg
[~2018-04-05 18:26] MED LIST changes: +BENZ100A PO; +Citroma296 ML PO
[2018-04-05] MEDS ORDERED: ACET325 PO (18:51)
[2018-04-05] MEDS ORDERED: PYRI60 PO (18:52)
[2018-04-05 19:10] LABS: BASOPHILS ABSOLUTE AUTO 0.04 K/mm3 (0.00-0.23); BASOPHILS PERCENT AUTO 0 % (0-2); EOSINOPHILS ABSOLUTE AUTO 0.07 K/mm3 (0.00-0.68); EOSINOPHILS PERCENT AUTO 1 % (0-6); Hematocrit 46.9 % (33.0-51.0); Hemoglobin 14.9 g/dL (11.5-16.0); IMMATURE GRAN ABSOLUTE AUTO 0.08 K/mm3 (0.00-0.10); IMMATURE GRAN PERCENT AUTO 1 % (0-1); LYMPHOCYTES ABSOLUTE AUTO 1.51 K/mm3 (0.84-5.20); LYMPHOCYTES PERCENT AUTO 10 % (21-46); MONOCYTES ABSOLUTE AUTO 1.22 K/mm3 (0.16-1.47); MONOCYTES PERCENT AUTO 8 % (4-13); Mean Corpuscular HGB 29.6 pg (26.0-34.0); Mean Corpuscular HGB Conc 31.8 g/dL (31.5-36.5); Mean Corpuscular Volume 93 fL (80-100); Mean Platelet Volume 11.5 fL (9.1-12.4); NEUTROPHILS ABSOLUTE AUTO 11.82 K/mm3 (1.96-9.15); NEUTROPHILS PERCENT AUTO 80 % (41-73); Platelet Count 211 K/mm3 (150-400); RDW Coefficient Variation 14.5 % (11.7-14.2); RDW Standard Deviation 49.6 fL (35.1-46.3); Red Blood Cell Count 5.04 M/mm3 (3.80-5.20); White Blood Cell Count 14.74 K/mm3 (4.00-11.30)
[2018-04-05 19:27] LABS: Albumin, Blood 3.1 g/dL (3.4-5.0); Albumin/Globulin Ratio 0.9 (0.8-1.8); Bilirubin, Total 0.5 mg/dL (0.1-1.0); Bun/Creatinine Ratio 20.6 (12.0-20.0); Calcium, Blood 9.1 mg/dL (8.5-10.1); Creatinine, Blood 1.07 mg/dL (0.40-1.00); Globulin, Blood 3.6 g/dL (2.2-4.0); Potassium, Blood 3.5 mmol/L (3.5-5.5); Total Protein, Blood 6.7 g/dL (6.4-8.2)
[2018-04-05 19:48] LABS: Source, Urine Catheter
[2018-04-05 19:56] LABS: Appearance, Urine Clear (Clear); Bilirubin, Urine Neg (Neg); Blood, Urine Neg (Neg); Color, Urine Yellow (P-Yellow); Glucose Qualitative, Urine Neg (Neg); Ketones, Urine Neg (Neg); Leukocyte Esterase, Urine Neg (Neg); Nitrite, Urine Neg (Neg); Protein, Urine 2+ (Neg); Urobilinogen, Urine NORM (Normal)
[2018-04-05 20:05] LABS: Bacteria Few /hpf; Red Blood Cells, Urine Not Seen /hpf (0-2); Squamous Epithelial Cells Few /hpf (Few); White Blood Cells, Urine Not Seen /hpf (0-5)
== END 2018-04-05 22:47 | disposition home or self-care (01) ==
LOC: ER 18:26
PROVIDERS: Emergency Medicine
DX: R51 Headache (principal); I12.9 Hypertensive chronic kidney disease with stage 1 through stage 4 chronic kidney disease, or unspecified chronic kidney disease; N18.9 Chronic kidney disease, unspecified; R11.0 Nausea; E11.22 Type 2 diabetes mellitus with diabetic chronic kidney disease; J44.9 Chronic obstructive pulmonary disease, unspecified; I48.91 Unspecified atrial fibrillation; Z88.8 Allergy status to other drugs, medicaments and biological substances; Z91.09 Other allergy status, other than to drugs and biological substances; Z91.013 Allergy to seafood; Z79.899 Other long term (current) drug therapy; Z79.52 Long term (current) use of systemic steroids; Z79.01 Long term (current) use of anticoagulants
CPT/HCPCS: 80053; 81001; 85025; 96374; 96375; 99284-25; J0360; J2405; P9612

== ENCOUNTER 2018-05-19 01:46 | Inpatient (IN) | payer OTHER ==
[~2018-05-19] VITALS: Ht 165.1 cm; Wt 80.4 kg
[2018-05-19] MEDS ORDERED: FURO40 PO (02:12)
[2018-05-19] MEDS ORDERED: SACC250C PO (02:13)
[2018-05-19 02:33] LABS: BASOPHILS ABSOLUTE AUTO 0.04 K/mm3 (0.00-0.23); BASOPHILS PERCENT AUTO 0 % (0-2); EOSINOPHILS ABSOLUTE AUTO 0.07 K/mm3 (0.00-0.68); EOSINOPHILS PERCENT AUTO 1 % (0-6); Hematocrit 47.3 % (33.0-51.0); Hemoglobin 14.9 g/dL (11.5-16.0); IMMATURE GRAN ABSOLUTE AUTO 0.11 K/mm3 (0.00-0.10); IMMATURE GRAN PERCENT AUTO 1 % (0-1); LYMPHOCYTES ABSOLUTE AUTO 1.95 K/mm3 (0.84-5.20); LYMPHOCYTES PERCENT AUTO 13 % (21-46); MONOCYTES PERCENT AUTO 7 % (4-13); Mean Corpuscular HGB 30.3 pg (26.0-34.0); Mean Corpuscular HGB Conc 31.5 g/dL (31.5-36.5); Mean Corpuscular Volume 96 fL (80-100); Mean Platelet Volume 11.7 fL (9.1-12.4); NEUTROPHILS ABSOLUTE AUTO 11.74 K/mm3 (1.96-9.15); NEUTROPHILS PERCENT AUTO 78 % (41-73); Platelet Count 216 K/mm3 (150-400); RDW Coefficient Variation 14.8 % (11.7-14.2); RDW Standard Deviation 52.7 fL (35.1-46.3); Red Blood Cell Count 4.92 M/mm3 (3.80-5.20); White Blood Cell Count 15.01 K/mm3 (4.00-11.30)
[2018-05-19 02:35] LABS: Prothrombin Time Results 10.6 Sec (9.7-11.5)
[2018-05-19 03:00] LABS: Albumin, Blood 2.9 g/dL (3.4-5.0); Albumin/Globulin Ratio 0.7 (0.8-1.8); Bilirubin, Total 0.5 mg/dL (0.1-1.0); Bun/Creatinine Ratio 21.7 (12.0-20.0); Calcium, Blood 8.7 mg/dL (8.5-10.1); Creatinine, Blood 1.06 mg/dL (0.40-1.00); Globulin, Blood 3.9 g/dL (2.2-4.0); Potassium, Blood 3.5 mmol/L (3.5-5.5); Total Protein, Blood 6.8 g/dL (6.4-8.2)
[2018-05-19 03:05] LABS: Source, Urine Catheter
[2018-05-19 03:06] LABS: Bilirubin, Urine Neg (Neg); Blood, Urine Neg (Neg); Glucose Qualitative, Urine Neg (Neg); Ketones, Urine Neg (Neg); Leukocyte Esterase, Urine Neg (Neg); Nitrite, Urine Neg (Neg); Protein, Urine 2+ (Neg); Specific Gravity, Urine 1.015 (1.003-1.022); Urobilinogen, Urine NORM (Normal)
[2018-05-19 03:19] LABS: Appearance, Urine Clear (Clear); Color, Urine Yellow (P-Yellow)
[2018-05-19 03:20] LABS: Bacteria Many /hpf; Red Blood Cells, Urine Not Seen /hpf (0-2); Squamous Epithelial Cells Few /hpf (Few); White Blood Cells, Urine Rare /hpf (0-5)
[2018-05-19 07:03] LABS: U Amphetamine Screen Not Detected; U Barbituate Screen Not Detected; U Benzodiazapine Screen Not Detected; U Buprenorphine Screen Not Detected; U Cannabinoids Screen Not Detected; U Cocaine Screen Not Detected; U Methadone Screen Not Detected; U Methamphetamine Screen Not Detected; U Opiates Screen Not Detected; U Oxycodone Screen Not Detected; U Phencyclidine Screen Not Detected; U Propoxyphene Screen Not Detected
[2018-05-19 09:26] LABS: Hematocrit 47.8 % (33.0-51.0); Hemoglobin 15.1 g/dL (11.5-16.0); Mean Corpuscular HGB 30.4 pg (26.0-34.0); Mean Corpuscular HGB Conc 31.6 g/dL (31.5-36.5); Mean Corpuscular Volume 96 fL (80-100); Mean Platelet Volume 11.2 fL (9.1-12.4); Platelet Count 210 K/mm3 (150-400); RDW Coefficient Variation 14.9 % (11.7-14.2); RDW Standard Deviation 53.1 fL (35.1-46.3); Red Blood Cell Count 4.96 M/mm3 (3.80-5.20); White Blood Cell Count 18.51 K/mm3 (4.00-11.30)
[2018-05-19 09:46] LABS: Albumin, Blood 2.8 g/dL (3.4-5.0); Albumin/Globulin Ratio 0.8 (0.8-1.8); Bilirubin, Total 0.6 mg/dL (0.1-1.0); Bun/Creatinine Ratio 17.5 (12.0-20.0); Calcium, Blood 8.9 mg/dL (8.5-10.1); Creatinine, Blood 1.14 mg/dL (0.40-1.00); Globulin, Blood 3.7 g/dL (2.2-4.0); Potassium, Blood 3.6 mmol/L (3.5-5.5); Total Protein, Blood 6.5 g/dL (6.4-8.2)
[2018-05-19 14:07] LABS: Adenovirus Not Detected (NOT DETECT); Bordetella pertussis Not Detected (NOT DETECT); Chlamydophila pneumoniae Not Detected (NOT DETECT); Coronavirus 229E Not Detected (NOT DETECT); Coronavirus HKU1 Not Detected (NOT DETECT); Coronavirus NL63 Not Detected (NOT DETECT); Coronavirus OC43 Not Detected (NOT DETECT); Human Metapneumovirus Not Detected (NOT DETECT); Human Rhinovirus/Enterovirus Not Detected (NOT DETECT); Influenza A Not Detected (NOT DETECT); Influenza A/2009-H1 Not Detected (NOT DETECT); Influenza A/H1 Not Detected (NOT DETECT); Influenza A/H3 Not Detected (NOT DETECT); Influenza B Not Detected (NOT DETECT); Mycoplasma pneumoniae Not Detected (NOT DETECT); Parainfluenza Virus 1 Not Detected (NOT DETECT); Parainfluenza Virus 2 Not Detected (NOT DETECT); Parainfluenza Virus 3 Not Detected (NOT DETECT); Parainfluenza Virus 4 Not Detected (NOT DETECT); Respiratory Syncytial Virus Not Detected (NOT DETECT)
[2018-05-20 04:16] LABS: Hematocrit 39.3 % (33.0-51.0); Hemoglobin 12.4 g/dL (11.5-16.0); Mean Corpuscular HGB 30.4 pg (26.0-34.0); Mean Corpuscular HGB Conc 31.6 g/dL (31.5-36.5); Mean Corpuscular Volume 96 fL (80-100); Mean Platelet Volume 11.4 fL (9.1-12.4); Platelet Count 179 K/mm3 (150-400); RDW Coefficient Variation 15.2 % (11.7-14.2); RDW Standard Deviation 54.4 fL (35.1-46.3); Red Blood Cell Count 4.08 M/mm3 (3.80-5.20); White Blood Cell Count 12.96 K/mm3 (4.00-11.30)
[2018-05-21] MEDS ORDERED: ASPI81CH PO (16:36)
[2018-05-21] MEDS ORDERED: PYRI60 PO (16:36)
[2018-05-21] MEDS ORDERED: LISI20 PO (16:37)
[2018-05-21] MEDS ORDERED: ONDA4ODT MM (16:37)
== END 2018-05-21 16:46 | disposition home or self-care (01) | DRG 57 ==
LOC: ER 01:46 → SURS 06:00 → PCU 06:25 → SURS 05-20 15:12
PROVIDERS: Emergency Medicine; Internal Medicine; ADMIT Internal Medicine
DX: G70.01 Myasthenia gravis with (acute) exacerbation (principal); E87.2 Acidosis; I50.32 Chronic diastolic (congestive) heart failure; R65.10 Systemic inflammatory response syndrome (SIRS) of non-infectious origin without acute organ dysfunction; I69.354 Hemiplegia and hemiparesis following cerebral infarction affecting left non-dominant side; I13.0 Hypertensive heart and chronic kidney disease with heart failure and stage 1 through stage 4 chronic kidney disease, or unspecified chronic kidney disease; J98.11 Atelectasis; I16.0 Hypertensive urgency; Z51.5 Encounter for palliative care; J44.9 Chronic obstructive pulmonary disease, unspecified; I48.91 Unspecified atrial fibrillation; K21.9 Gastro-esophageal reflux disease without esophagitis; E11.22 Type 2 diabetes mellitus with diabetic chronic kidney disease; N18.9 Chronic kidney disease, unspecified; Z86.718 Personal history of other venous thrombosis and embolism; R47.81 Slurred speech; Z66 Do not resuscitate; Z79.82 Long term (current) use of aspirin
CPT/HCPCS: 36415; 70450; 71045; 80053; 81001; 83605; 83690; 84145; 85025; 85027; 85610; 85730; 87086; 87486; 87581; 87633; 87798; 92526; 92610; 93005; 93010; 94640; 94760; 96365; 96375; 96376; 97162; 97530; 99285-25; J0360; J1940; J1956; J2405; J2550; J2765; J2930; J7120; P9612

== ENCOUNTER 2018-05-23 05:31 | Emergency (ER) | payer OTHER ==
[~2018-05-23] VITALS: Ht 165.1 cm; Wt 75.8 kg
[~2018-05-23 05:31] MED LIST changes: +LISI20 PO
[2018-05-23 06:51] LABS: BASOPHILS ABSOLUTE AUTO 0.02 K/mm3 (0.00-0.23); BASOPHILS PERCENT AUTO 0 % (0-2); EOSINOPHILS ABSOLUTE AUTO 0.05 K/mm3 (0.00-0.68); EOSINOPHILS PERCENT AUTO 0 % (0-6); Hematocrit 39.1 % (33.0-51.0); Hemoglobin 12.4 g/dL (11.5-16.0); IMMATURE GRAN ABSOLUTE AUTO 0.07 K/mm3 (0.00-0.10); IMMATURE GRAN PERCENT AUTO 0 % (0-1); LYMPHOCYTES PERCENT AUTO 9 % (21-46); MONOCYTES ABSOLUTE AUTO 1.61 K/mm3 (0.16-1.47); MONOCYTES PERCENT AUTO 10 % (4-13); Mean Corpuscular HGB 30.2 pg (26.0-34.0); Mean Corpuscular HGB Conc 31.7 g/dL (31.5-36.5); Mean Corpuscular Volume 95 fL (80-100); Mean Platelet Volume 11.4 fL (9.1-12.4); NEUTROPHILS PERCENT AUTO 80 % (41-73); Platelet Count 214 K/mm3 (150-400); RDW Standard Deviation 52.3 fL (35.1-46.3); Red Blood Cell Count 4.11 M/mm3 (3.80-5.20); White Blood Cell Count 16.35 K/mm3 (4.00-11.30)
[2018-05-23 07:21] LABS: Source, Urine Clean Catch
[2018-05-23 07:26] LABS: Albumin, Blood 2.4 g/dL (3.4-5.0); Albumin/Globulin Ratio 0.8 (0.8-1.8); Bilirubin, Total 0.5 mg/dL (0.1-1.0); Bun/Creatinine Ratio 29.2 (12.0-20.0); Calcium, Blood 8.7 mg/dL (8.5-10.1); Creatinine, Blood 1.37 mg/dL (0.40-1.00); Globulin, Blood 2.9 g/dL (2.2-4.0); Potassium, Blood 3.4 mmol/L (3.5-5.5); Total Protein, Blood 5.3 g/dL (6.4-8.2); Troponin I 0.066 ng/mL (0.000-0.040)
[2018-05-23 07:27] LABS: Bilirubin, Urine Neg (Neg); Blood, Urine Neg (Neg); Glucose Qualitative, Urine Neg (Neg); Ketones, Urine Neg (Neg); Leukocyte Esterase, Urine Neg (Neg); Nitrite, Urine Neg (Neg); Protein, Urine Neg (Neg); Urobilinogen, Urine NORM (Normal); pH, Urine 6.5 (5.0-8.0)
[2018-05-23 07:35] LABS: Appearance, Urine Clear (Clear); Color, Urine Yellow (P-Yellow)
[2018-05-23] MEDS ORDERED: [UNRECOGNIZED DRUG - CODE] PO (16:51)
[2018-05-23] MEDS ORDERED: [UNRECOGNIZED DRUG - CODE] PO (16:52)
== END 2018-05-23 11:32 | disposition home or self-care (01) ==
LOC: ER 05:31
PROVIDERS: Emergency Medicine
DX: R41.0 Disorientation, unspecified (principal); D72.829 Elevated white blood cell count, unspecified; J44.9 Chronic obstructive pulmonary disease, unspecified; E11.22 Type 2 diabetes mellitus with diabetic chronic kidney disease; N18.9 Chronic kidney disease, unspecified; I48.91 Unspecified atrial fibrillation; Z86.73 Personal history of transient ischemic attack (TIA), and cerebral infarction without residual deficits; Z88.8 Allergy status to other drugs, medicaments and biological substances; Z91.013 Allergy to seafood; Z79.899 Other long term (current) drug therapy; Z79.52 Long term (current) use of systemic steroids; Z79.82 Long term (current) use of aspirin
CPT/HCPCS: 36415; 71045; 71250; 80053; 81003; 82947; 84484; 85025; 93005; 93010; 99285-25

== ENCOUNTER 2018-05-23 14:10 | Observation (INO) | payer OTHER ==
[~2018-05-23] VITALS: Ht 165.1 cm; Wt 78.8 kg
[2018-05-23] MEDS ORDERED: [UNRECOGNIZED DRUG - CODE] PO (16:51)
[2018-05-23] MEDS ORDERED: [UNRECOGNIZED DRUG - CODE] PO (16:52)
--- NOTE | 2018-05-23 18:37 | NUR ---
ADMISSION PT A NEW ADMISSION TO ROOM 346 FROM ED. PT IS ALERT AND ORIENTED TO SELF AND FAMILY. PT HAS NO COMPLAINTS AT THIS TIME. ORIENTED TO ROOM AND CALL LIGHT. CALL LIGHT IN REACH. BED ALARM ON FOR SAFETY. WILL CONTINUE TO MONITOR AND REPORT TO ONCOMING RN.
[2018-05-24 05:25] LABS: BASOPHILS ABSOLUTE AUTO 0.02 K/mm3 (0.00-0.23); BASOPHILS PERCENT AUTO 0 % (0-2); EOSINOPHILS ABSOLUTE AUTO 0.36 K/mm3 (0.00-0.68); EOSINOPHILS PERCENT AUTO 3 % (0-6); Hematocrit 40.6 % (33.0-51.0); Hemoglobin 12.8 g/dL (11.5-16.0); IMMATURE GRAN ABSOLUTE AUTO 0.08 K/mm3 (0.00-0.10); IMMATURE GRAN PERCENT AUTO 1 % (0-1); LYMPHOCYTES ABSOLUTE AUTO 1.59 K/mm3 (0.84-5.20); LYMPHOCYTES PERCENT AUTO 11 % (21-46); MONOCYTES ABSOLUTE AUTO 1.67 K/mm3 (0.16-1.47); MONOCYTES PERCENT AUTO 12 % (4-13); Mean Corpuscular HGB 30.1 pg (26.0-34.0); Mean Corpuscular HGB Conc 31.5 g/dL (31.5-36.5); Mean Corpuscular Volume 96 fL (80-100); Mean Platelet Volume 11.6 fL (9.1-12.4); NEUTROPHILS PERCENT AUTO 74 % (41-73); Platelet Count 195 K/mm3 (150-400); RDW Coefficient Variation 15.6 % (11.7-14.2); RDW Standard Deviation 54.7 fL (35.1-46.3); Red Blood Cell Count 4.25 M/mm3 (3.80-5.20); White Blood Cell Count 14.52 K/mm3 (4.00-11.30)
--- NOTE | 2018-05-24 05:58 | NUR ---
SHIFT SUMMARY ALERT TO SELF. RESPONDS TO VERBAL STIMULI. NOTED VISUAL HALLUCINATIONS. MEDS WHOLE IN APPLESAUCE. BECAME AGGRESSIVE/SWATTING DURING BED CHANGE, BUT QUICKLY CALMED. REMAINS ON 2L VIA NC SATING >90%. REMAINS HYPERTENSIVE THIS SHIFT, APPEARS ON TREND WITH PREVIOUS PRESSURES. SPOKE TO PHYSICIAN AT BEGINNING OF SHIFT STATED TO GIVE HOME DOSE OF METOPROLOL AND A ONE TIME DOSE OF LISINOPRIL. MED RECONCILIATION COMPLETED, BUT NOT TRANSPOSED INTO JUN. APPEARED TO SLEEP MOST OF SHIFT. BED IN LOWEST POSITION. ALARM ON. CALL LIGHT IN REACH. WCTM. REPORT TO ONCOMING RN.
[2018-05-24 06:02] LABS: Albumin, Blood 2.5 g/dL (3.4-5.0); Albumin/Globulin Ratio 0.9 (0.8-1.8); Bilirubin, Total 1.3 mg/dL (0.1-1.0); Calcium, Blood 8.4 mg/dL (8.5-10.1); Creatinine, Blood 1.15 mg/dL (0.40-1.00); Globulin, Blood 2.9 g/dL (2.2-4.0); Magnesium, Blood 2.4 mg/dL (1.6-2.4); Potassium, Blood 3.8 mmol/L (3.5-5.5); Total Protein, Blood 5.4 g/dL (6.4-8.2)
--- NOTE | 2018-05-24 18:11 | NUR ---
SHIFT SUMMARY TICO SLEPT MOST OF THE SHIFT. HER FAMILY CAME IN AND DROPPED OFF HER LOWER DENTURES. 2L O2 ON PRN AND AT NIGHT. MEDS WHOLE IN APPLESAUCE. Q2 TURNS AND INCONTINENCE CARE PROVIDED. DENIED PAIN. STILL SOMEWHAT CONFUSED, BUT MUCH MORE ORIENTED THAN YESTERDAY PER PREVIOUS NURSE. NO HALLUCINATIONS NOTED THIS SHIFT. WCTM
--- NOTE | 2018-05-25 05:23 | NUR ---
SHIFT SUMMARY A/O, ABLE TO MAKE NEEDS KNOWN. COOPERATIVE WITH CARE. CALLS AND ANSWERS QUESTIONS APPROPRIATELY. C/O PAIN/DISCOMFORT TO R HIP THIS AM. NEW ORDER PLACED FOR MILD/MOD PAIN; MEDICATED PER EMAR. REMAINS ON 2L VIA NC; THIS AM VITALS SHOWED 96% ON 2L. NO ACUTE CHANGES OVERNIGHT. VSS/AFEBRILE. APPEARED TO REST MUCH OF THE SHIFT. BED IN LOWEST POSITION. CALL LIGHT IN REACH. WCTM. REPORT TO ONCOMING RN.
--- NOTE | 2018-05-25 09:11 | NUR ---
ADVISED OF BLD PRESS 116/61 AND PULSE 59 WILL HOLD LOPRESSOR, DOES SHE WANT ZESTRIL AND LASIX GIVEN. HOLD ZESTRIL, BUT GIVE LASIX.
--- NOTE | 2018-05-25 12:34 | NUR ---
PATIENT GIVEN "BROWN COW"--WARM PRUNE JUICE, MELTED BUTTER AND APPLE JUICE. TALKED TO ABOUT ORDERING SOMETHING FOR CONSTIPATION. STS WILL CHECK EMAR. AWAITING ORDERS.
--- NOTE | 2018-05-26 04:35 | NUR ---
SHIFT SUMMARY A/O, ABLE TO MAKE NEEDS KNOWN. COOPERATIVE WITH CARE. CALLS AND ANSWERS QUESTIONS APPROPRIATELY. C/O PAIN/DISCOMFORT TO SHOULDERS BILATERALLY, RATED 7/10; MEDICATED PER EMAR. REMAINS ON 2L VIA NC WITH SATURATIONS >90%. UP TO BSC WITH FWW AND 1 ASSIST; WITH LITTLE DIFFICULTY. BECOMES DYSPNEIC UPON RETURN TO BED. HAD A BM THIS SHIFT; IN WHICH SHE HAD BEEN HOPING R/T NOT HAVING A BM SINCE ARRIVAL DATE. VSS/AFEBRILE. NO ACUTE CHANGES NOTED OVERNIGHT. BED IN LOWEST POSITION. ALARM ON. CALL LIGHT IN REACH. WCTM. REPORT TO ONCOMING RN.
[2018-05-26] MEDS ORDERED: POTA20LUD PO (11:34)
--- NOTE | 2018-05-26 11:41 | NUR ---
Patient was lying in bed and alert when I entered the patient's room. I introduced myself and patient welcomed me to sit down. Patient openly shared about her loss of loved ones and the grief she carries, about her family and hoda history and about the dianna of her current living condition. I facilitated a life/family review, provided pastoral and grief support, explored issues of hoda and belief, provided companioship and prayer. Patient responded well to all interventions and showed signs of restored hoda and hope. Patient voiced her gratitude for the visit.
--- NOTE | 2018-05-26 17:05 | NUR ---
DISCHARGE NOTE PT DISCHARGE VIA W/C WITH SUNSHINE TAXI. IV DISCONTINUED INTACT. NURSE TO NURSE REPORT GIVEN.
== END 2018-05-26 16:56 | disposition home health service (06) ==
LOC: ER 14:10 → MEDS 14:11 → ENPENDDIS 05-26 11:19 → MEDS 05-26 16:56
PROVIDERS: ADMIT Internal Medicine
DX: G92 Toxic encephalopathy (principal); G70.00 Myasthenia gravis without (acute) exacerbation; K20.9 Esophagitis, unspecified; I10 Essential (primary) hypertension; I48.2 Chronic atrial fibrillation; E11.9 Type 2 diabetes mellitus without complications; F03.90 Unspecified dementia, unspecified severity, without behavioral disturbance, psychotic disturbance, mood disturbance, and anxiety; J44.9 Chronic obstructive pulmonary disease, unspecified; Z86.73 Personal history of transient ischemic attack (TIA), and cerebral infarction without residual deficits; Z91.041 Radiographic dye allergy status; Z88.8 Allergy status to other drugs, medicaments and biological substances; Z91.013 Allergy to seafood; Z79.899 Other long term (current) drug therapy; Z79.02 Long term (current) use of antithrombotics/antiplatelets; Z79.82 Long term (current) use of aspirin; Z79.1 Long term (current) use of non-steroidal anti-inflammatories (NSAID); Z79.52 Long term (current) use of systemic steroids
CPT/HCPCS: 36415; 80053; 83735; 85025; 96372; 99285; G0378; J1650

== ENCOUNTER 2018-09-13 12:43 | Observation (INO) | payer OTHER ==
[~2018-09-13] VITALS: Ht 167.6 cm; Wt 131.5 kg
[~2018-09-13 12:43] MED LIST changes: +POTA20LUD PO; +[UNRECOGNIZED DRUG - CODE] PO; +[UNRECOGNIZED DRUG - CODE] PO
[2018-09-13] MEDS ORDERED: FLUT1DIS5 INH (13:10)
[2018-09-13] MEDS ORDERED: ASPI81CH PO (13:11)
[2018-09-13] MEDS ORDERED: ELIQUIS2.5 MG PO (13:13)
[2018-09-13] MEDS ORDERED: LISI20 PO (13:13)
[2018-09-13] MEDS ORDERED: FURO20 PO (13:13)
[2018-09-13] MEDS ORDERED: Florastor250 MG PO (13:13)
[2018-09-13] MEDS ORDERED: METO50 PO (13:14)
[2018-09-13] MEDS ORDERED: OMEPRAZOLE20 MG PO (13:14)
[2018-09-13] MEDS ORDERED: PRED10 PO ×2 (13:14→18:35)
[2018-09-13] MEDS ORDERED: PYRI60 PO (13:14)
[2018-09-13] MEDS ORDERED: POTCHL10ER PO (13:14)
[2018-09-13] MEDS ORDERED: QUET25 PO ×2 (13:15)
[2018-09-13 13:48] LABS: BASOPHILS ABSOLUTE AUTO 0.04 K/mm3 (0.00-0.23); BASOPHILS PERCENT AUTO 0 % (0-2); EOSINOPHILS ABSOLUTE AUTO 0.01 K/mm3 (0.00-0.68); EOSINOPHILS PERCENT AUTO 0 % (0-6); Hematocrit 48.6 % (33.0-51.0); Hemoglobin 15.3 g/dL (11.5-16.0); IMMATURE GRAN ABSOLUTE AUTO 0.08 K/mm3 (0.00-0.10); IMMATURE GRAN PERCENT AUTO 1 % (0-1); LYMPHOCYTES ABSOLUTE AUTO 0.57 K/mm3 (0.84-5.20); LYMPHOCYTES PERCENT AUTO 4 % (21-46); MONOCYTES PERCENT AUTO 1 % (4-13); Mean Corpuscular HGB 30.7 pg (26.0-34.0); Mean Corpuscular HGB Conc 31.5 g/dL (31.5-36.5); Mean Corpuscular Volume 98 fL (80-100); Mean Platelet Volume 12.1 fL (9.1-12.4); NEUTROPHILS PERCENT AUTO 94 % (41-73); Platelet Count 222 K/mm3 (150-400); RDW Standard Deviation 50.4 fL (35.1-46.3); Red Blood Cell Count 4.98 M/mm3 (3.80-5.20)
[2018-09-13 14:00] LABS: Albumin, Blood 3.3 g/dL (3.4-5.0); Albumin/Globulin Ratio 0.8 (0.8-1.8); Bilirubin, Total 0.6 mg/dL (0.1-1.0); Bun/Creatinine Ratio 30.1 (12.0-20.0); Calcium, Blood 9.3 mg/dL (8.5-10.1); Creatinine, Blood 1.13 mg/dL (0.40-1.00); Potassium, Blood 4.6 mmol/L (3.5-5.5); Total Protein, Blood 7.3 g/dL (6.4-8.2)
[2018-09-13] MEDS ORDERED: PRED20 PO (18:37)
--- NOTE | 2018-09-13 18:40 | NUR ---
TRANSFER NOTE RECEIVED HANDOFF REPORT FROM ED NURSE LEONARDO. PT IS DNR. ADMITTED FOR N/V, HTN. PT LIVES AT [facility]. HX: COPD, CKD, AFIB, ENCEPHALOPATHY, DVT, DM 2 TIA, SKIN CANCER, MYASTHENIA GRAVIS. 2 LPM O2. AT HOME PT USES O2 ONLY AT NIGHT. PT TRANSFERED TO FLOOR WNL. VS MEASURED. ATTENDS CHANGED. PT STATES SHE BRUISED IN THE ED FROM THE BLOOD PRESSURE CUFF. I WAS INFORMED PT TAKES ELLOQUIS AND PREDNISONE. WE ARE UNSURE OF HER AMBULATORY STATUS AT THIS TIME. SHE IS A&O BUT FORGETFUL. ADA DIET, ACHS. TAKES MEDS WHOLE WITH APPLESAUCE.
[2018-09-13 18:47] LABS: BASOPHILS ABSOLUTE AUTO 0.01 K/mm3 (0.00-0.23); BASOPHILS PERCENT AUTO 0 % (0-2); EOSINOPHILS PERCENT AUTO 0 % (0-6); Hematocrit 43.5 % (33.0-51.0); Hemoglobin 13.7 g/dL (11.5-16.0); IMMATURE GRAN PERCENT AUTO 1 % (0-1); LYMPHOCYTES ABSOLUTE AUTO 1.31 K/mm3 (0.84-5.20); LYMPHOCYTES PERCENT AUTO 8 % (21-46); MONOCYTES PERCENT AUTO 4 % (4-13); Mean Corpuscular HGB 30.9 pg (26.0-34.0); Mean Corpuscular HGB Conc 31.5 g/dL (31.5-36.5); Mean Corpuscular Volume 98 fL (80-100); Mean Platelet Volume 11.4 fL (9.1-12.4); NEUTROPHILS ABSOLUTE AUTO 15.24 K/mm3 (1.96-9.15); NEUTROPHILS PERCENT AUTO 88 % (41-73); Platelet Count 217 K/mm3 (150-400); RDW Coefficient Variation 14.1 % (11.7-14.2); RDW Standard Deviation 51.1 fL (35.1-46.3); Red Blood Cell Count 4.44 M/mm3 (3.80-5.20); White Blood Cell Count 17.26 K/mm3 (4.00-11.30)
[2018-09-13 19:02] LABS: International Normalized Ratio 1.06; Prothrombin Time Results 11.2 Sec (9.7-11.5)
[2018-09-13] MEDS ORDERED: ACET325 PO (20:21)
[2018-09-13] MEDS ORDERED: ONDA4ODT PO (20:22)
[2018-09-13] MEDS ORDERED: ALBU90OI INH (20:24)
[2018-09-13] MEDS ORDERED: FURO40 PO (20:25)
[2018-09-13 21:26] LABS: Adenovirus Not Detected (NOT DETECT); Bordetella pertussis Not Detected (NOT DETECT); Coronavirus 229E Not Detected (NOT DETECT); Coronavirus HKU1 Not Detected (NOT DETECT); Coronavirus NL63 Not Detected (NOT DETECT); Coronavirus OC43 Not Detected (NOT DETECT); Human Metapneumovirus Not Detected (NOT DETECT); Human Rhinovirus/Enterovirus Not Detected (NOT DETECT); Influenza A Not Detected (NOT DETECT); Influenza A/2009-H1 Not Detected (NOT DETECT); Influenza A/H1 Not Detected (NOT DETECT); Influenza A/H3 Not Detected (NOT DETECT); Influenza B Not Detected (NOT DETECT); Parainfluenza Virus 1 Not Detected (NOT DETECT); Parainfluenza Virus 2 Not Detected (NOT DETECT); Parainfluenza Virus 3 Not Detected (NOT DETECT); Parainfluenza Virus 4 Not Detected (NOT DETECT); Respiratory Syncytial Virus Not Detected (NOT DETECT)
[2018-09-13 21:27] LABS: Chlamydophila pneumoniae Not Detected (NOT DETECT); Mycoplasma pneumoniae Not Detected (NOT DETECT)
--- NOTE | 2018-09-14 01:09 | NUR ---
Pulse in 40's, pt denies any dizzyness or other symptoms, pcu noted that pulse dropped when lopressor given, home dose is 25mg bid, new dose is 50mg cn recommended asking for change of dose back to home dose. placed information before hospitalist along with cn recommendation and he allowed the reduction to 25, will continue monitor and treat until SBAR report given to day shift regarding pt.
[2018-09-14 05:09] LABS: BASOPHILS ABSOLUTE AUTO 0.02 K/mm3 (0.00-0.23); BASOPHILS PERCENT AUTO 0 % (0-2); EOSINOPHILS ABSOLUTE AUTO 0.06 K/mm3 (0.00-0.68); EOSINOPHILS PERCENT AUTO 0 % (0-6); Hematocrit 41.8 % (33.0-51.0); Hemoglobin 13.1 g/dL (11.5-16.0); IMMATURE GRAN ABSOLUTE AUTO 0.09 K/mm3 (0.00-0.10); IMMATURE GRAN PERCENT AUTO 1 % (0-1); LYMPHOCYTES ABSOLUTE AUTO 1.71 K/mm3 (0.84-5.20); LYMPHOCYTES PERCENT AUTO 11 % (21-46); MONOCYTES ABSOLUTE AUTO 1.43 K/mm3 (0.16-1.47); MONOCYTES PERCENT AUTO 10 % (4-13); Mean Corpuscular HGB 30.6 pg (26.0-34.0); Mean Corpuscular HGB Conc 31.3 g/dL (31.5-36.5); Mean Corpuscular Volume 98 fL (80-100); Mean Platelet Volume 11.4 fL (9.1-12.4); NEUTROPHILS ABSOLUTE AUTO 11.68 K/mm3 (1.96-9.15); NEUTROPHILS PERCENT AUTO 78 % (41-73); Platelet Count 184 K/mm3 (150-400); RDW Coefficient Variation 14.4 % (11.7-14.2); RDW Standard Deviation 51.8 fL (35.1-46.3); Red Blood Cell Count 4.28 M/mm3 (3.80-5.20); White Blood Cell Count 14.99 K/mm3 (4.00-11.30)
[2018-09-14 05:33] LABS: Albumin, Blood 2.7 g/dL (3.4-5.0); Albumin/Globulin Ratio 0.9 (0.8-1.8); Bilirubin, Total 0.6 mg/dL (0.1-1.0); Bun/Creatinine Ratio 27.5 (12.0-20.0); Creatinine, Blood 1.42 mg/dL (0.40-1.00); Magnesium, Blood 2.2 mg/dL (1.6-2.4); Potassium, Blood 3.9 mmol/L (3.5-5.5); Total Protein, Blood 5.7 g/dL (6.4-8.2)
--- NOTE | 2018-09-14 17:52 | NUR ---
SHIFT SUMMARY PATIENT IS VERY PLEASANT, BUT LIKES THINGS DONE HER WAY. SHE IS ABLE TO STAND AND TRANSFER IF NEEDED, POTENTIAL 1 PERSON ASSIST WHEN SHE HAS NO TROUBLE. SHE NORMALLY IS INDEPENDENT IN HER LIVING SITUATION. NO ACUTE CONCERNS AT THIS TIME. SHE IS AWAITING DISCHARGE. STILL ON ANTIBIOTICS.
--- NOTE | 2018-09-15 04:45 | NUR ---
MANAGER OF FINANCE SUMMARY NO ACUTE CHANGES THIS SHIFT. PT AAOX3 WITH SOME INTERMITTENT CONFUSION BUT PT IS EASILY REORIENTED. PT IS PLEASANT AND COOPERATIVE WITH CARE. TAKES MEDS WHOLE WITH APPLESAUCE. DENIES PAIN, SOB, N/V. ON 2L O2 VIA NC. PT INCONTINENT WHICH IS BASELINE. VSS, WILL CONTINUE TO MONITOR.
[2018-09-15 05:45] LABS: BASOPHILS ABSOLUTE AUTO 0.04 K/mm3 (0.00-0.23); BASOPHILS PERCENT AUTO 0 % (0-2); EOSINOPHILS ABSOLUTE AUTO 0.29 K/mm3 (0.00-0.68); EOSINOPHILS PERCENT AUTO 2 % (0-6); Hematocrit 38.1 % (33.0-51.0); Hemoglobin 11.7 g/dL (11.5-16.0); IMMATURE GRAN ABSOLUTE AUTO 0.13 K/mm3 (0.00-0.10); IMMATURE GRAN PERCENT AUTO 1 % (0-1); LYMPHOCYTES ABSOLUTE AUTO 2.14 K/mm3 (0.84-5.20); LYMPHOCYTES PERCENT AUTO 13 % (21-46); MONOCYTES ABSOLUTE AUTO 1.61 K/mm3 (0.16-1.47); MONOCYTES PERCENT AUTO 10 % (4-13); Mean Corpuscular HGB 30.8 pg (26.0-34.0); Mean Corpuscular HGB Conc 30.7 g/dL (31.5-36.5); Mean Corpuscular Volume 100 fL (80-100); Mean Platelet Volume 11.9 fL (9.1-12.4); NEUTROPHILS PERCENT AUTO 74 % (41-73); Platelet Count 162 K/mm3 (150-400); RDW Coefficient Variation 14.6 % (11.7-14.2); RDW Standard Deviation 54.1 fL (35.1-46.3); White Blood Cell Count 16.41 K/mm3 (4.00-11.30)
[2018-09-15] MEDS ORDERED: LEVFLO500 PO (14:03)
--- NOTE | 2018-09-15 14:43 | NUR ---
DISCHARGE PT DISCHARGED TO [facility] WHERE PT LIVES. DISCHARGE INSTRUCTIONS AND MEDICATIONS EXPLAINED TO PT BY PAR[facility] GOODEN. MEDICATIONS FAXED TO [facility]. PT TRANSFERRED TO WHEELCHAIR VAN BY PRIVATE INVESTIGATOR. PT'S BELONGINGS WITH PT.
== END 2018-09-15 14:41 | disposition home or self-care (01) ==
LOC: ER 12:43 → MEDS 12:44
PROVIDERS: Emergency Medicine; Internal Medicine; ADMIT Family Medicine
DX: D72.829 Elevated white blood cell count, unspecified (principal); N17.9 Acute kidney failure, unspecified; E86.0 Dehydration; R11.2 Nausea with vomiting, unspecified; G93.40 Encephalopathy, unspecified; I16.0 Hypertensive urgency; G70.00 Myasthenia gravis without (acute) exacerbation; R30.0 Dysuria; I12.9 Hypertensive chronic kidney disease with stage 1 through stage 4 chronic kidney disease, or unspecified chronic kidney disease; E11.22 Type 2 diabetes mellitus with diabetic chronic kidney disease; N18.9 Chronic kidney disease, unspecified; J44.9 Chronic obstructive pulmonary disease, unspecified; K21.9 Gastro-esophageal reflux disease without esophagitis; I48.2 Chronic atrial fibrillation; Z86.73 Personal history of transient ischemic attack (TIA), and cerebral infarction without residual deficits; Z86.718 Personal history of other venous thrombosis and embolism; Z79.899 Other long term (current) drug therapy; Z79.01 Long term (current) use of anticoagulants; Z79.82 Long term (current) use of aspirin; Z91.041 Radiographic dye allergy status; Z91.013 Allergy to seafood; Z88.8 Allergy status to other drugs, medicaments and biological substances
CPT/HCPCS: 36415; 71045; 80053; 82947; 83605; 83735; 84145; 85025; 85610; 85730; 87486; 87581; 87633; 87798; 93005; 93010; 94640; 94760; 96361; 96365; 96366; 96367; 96374; 96375; 96376; 97161; 97530; 99285-25; C9113; G0378; J0360; J0692; J1956; J2405; J7030

== ENCOUNTER 2018-09-16 12:42 | Emergency (ER) | payer OTHER ==
[~2018-09-16] VITALS: Ht 167.6 cm; Wt 131.5 kg
[~2018-09-16 12:42] MED LIST changes: +Florastor250 MG PO; +OMEPRAZOLE20 MG PO
== END 2018-09-16 15:10 | disposition home or self-care (01) ==
LOC: ER 12:42
DX: R05 Cough (principal); I10 Essential (primary) hypertension; I48.91 Unspecified atrial fibrillation; Z79.899 Other long term (current) drug therapy; Z79.82 Long term (current) use of aspirin; Z79.52 Long term (current) use of systemic steroids
CPT/HCPCS: 71046; 99283-25

== ENCOUNTER → 2018-12-10 | Outpatient (CLI) | payer OTHER ==
[~2018-12-10] MED LIST changes: +Pedi-Dri 100,0060 GM TOP; +Ventolin/Prove6.7 GM INH
[2018-12-12 12:07] LABS: M-SPIKE, % Not Observed % (Not Observed)
== END ==
LOC: LAB SHORT 13:30 → LAB 13:30
PROVIDERS: Internal Medicine Nephrology
DX: N18.3 Chronic kidney disease, stage 3 (moderate) (principal); D63.1 Anemia in chronic kidney disease; N25.81 Secondary hyperparathyroidism of renal origin; E55.9 Vitamin D deficiency, unspecified; E78.00 Pure hypercholesterolemia, unspecified; R76.9 Abnormal immunological finding in serum, unspecified; R94.5 Abnormal results of liver function studies; R94.6 Abnormal results of thyroid function studies
CPT/HCPCS: 84156; 84166

== ENCOUNTER 2019-01-02 09:56 | Emergency (ER) | payer OTHER ==
[~2019-01-02] VITALS: Ht 167.6 cm; Wt 83.9 kg
[~2019-01-02 09:56] MED LIST changes: -Pedi-Dri 100,0060 GM TOP; -Ventolin/Prove6.7 GM INH
[2019-01-02] MEDS ORDERED: Pedi-Dri 100,0060 GM TOP (23:48)
[2019-01-02] MEDS ORDERED: Ventolin/Prove6.7 GM INH (23:50)
== END 2019-01-02 11:56 | disposition home or self-care (01) ==
LOC: ER 09:56
DX: M79.81 Nontraumatic hematoma of soft tissue (principal); I48.91 Unspecified atrial fibrillation; I10 Essential (primary) hypertension; G70.00 Myasthenia gravis without (acute) exacerbation; Z88.8 Allergy status to other drugs, medicaments and biological substances; Z91.013 Allergy to seafood; Z79.899 Other long term (current) drug therapy; Z79.01 Long term (current) use of anticoagulants; Z79.82 Long term (current) use of aspirin; Z79.52 Long term (current) use of systemic steroids
CPT/HCPCS: 99283

== ENCOUNTER 2019-01-02 23:31 | Emergency (ER) | payer OTHER ==
[~2019-01-02] VITALS: Ht 165.1 cm; Wt 83.9 kg
[2019-01-02] MEDS ORDERED: Pedi-Dri 100,0060 GM TOP (23:48)
[2019-01-02] MEDS ORDERED: Ventolin/Prove6.7 GM INH (23:50)
[2019-01-03 00:20] LABS: BASOPHILS ABSOLUTE AUTO 0.02 K/mm3 (0.00-0.23); BASOPHILS PERCENT AUTO 0 % (0-2); EOSINOPHILS ABSOLUTE AUTO 0.04 K/mm3 (0.00-0.68); EOSINOPHILS PERCENT AUTO 0 % (0-6); Hematocrit 42.7 % (33.0-51.0); Hemoglobin 13.1 g/dL (11.5-16.0); IMMATURE GRAN ABSOLUTE AUTO 0.11 K/mm3 (0.00-0.10); IMMATURE GRAN PERCENT AUTO 1 % (0-1); LYMPHOCYTES ABSOLUTE AUTO 1.24 K/mm3 (0.84-5.20); LYMPHOCYTES PERCENT AUTO 9 % (21-46); MONOCYTES ABSOLUTE AUTO 0.92 K/mm3 (0.16-1.47); MONOCYTES PERCENT AUTO 7 % (4-13); Mean Corpuscular HGB 28.5 pg (26.0-34.0); Mean Corpuscular HGB Conc 30.7 g/dL (31.5-36.5); Mean Corpuscular Volume 93 fL (80-100); Mean Platelet Volume 11.6 fL (9.1-12.4); NEUTROPHILS ABSOLUTE AUTO 11.78 K/mm3 (1.96-9.15); NEUTROPHILS PERCENT AUTO 84 % (41-73); Platelet Count 195 K/mm3 (150-400); RDW Coefficient Variation 15.8 % (11.7-14.2); RDW Standard Deviation 53.9 fL (35.1-46.3); White Blood Cell Count 14.11 K/mm3 (4.00-11.30)
[2019-01-03 00:40] LABS: Alanine Aminotransfer (ALT/SGP 35 U/L (12-78); Albumin, Blood 2.6 g/dL (3.4-5.0); Albumin/Globulin Ratio 0.7 (0.8-1.8); Alk Phos 49 U/L (50-136); Anion Gap 8 mmol/L (6-16); Aspartate Aminotrans (AST/SGOT 29 U/L (12-37); Bilirubin, Total 0.5 mg/dL (0.1-1.0); Blood Urea Nitrogen 39 mg/dL (8-24); Bun/Creatinine Ratio 20.3 (12.0-20.0); CO2, Blood 32 mmol/L (21-32); Calcium, Blood 8.9 mg/dL (8.5-10.1); Chloride, Blood 101 mmol/L (98-108); Creatinine, Blood 1.92 mg/dL (0.40-1.00); Globulin, Blood 3.5 g/dL (2.2-4.0); Glomerular Filtration Rate 27 (60-); Glucose, Blood 134 mg/dL (70-99); Potassium, Blood 4.2 mmol/L (3.5-5.5); Sodium, Blood 141 mmol/L (136-145); Total Protein, Blood 6.1 g/dL (6.4-8.2)
== END 2019-01-03 02:27 | disposition home or self-care (01) ==
LOC: ER 23:31
PROVIDERS: Emergency Medicine
DX: R55 Syncope and collapse (principal); R11.2 Nausea with vomiting, unspecified; N17.9 Acute kidney failure, unspecified; Z88.8 Allergy status to other drugs, medicaments and biological substances; Z91.013 Allergy to seafood; Z79.899 Other long term (current) drug therapy; Z79.82 Long term (current) use of aspirin; Z79.52 Long term (current) use of systemic steroids; J44.9 Chronic obstructive pulmonary disease, unspecified; I12.9 Hypertensive chronic kidney disease with stage 1 through stage 4 chronic kidney disease, or unspecified chronic kidney disease; N18.9 Chronic kidney disease, unspecified; E11.22 Type 2 diabetes mellitus with diabetic chronic kidney disease
CPT/HCPCS: 36415; 74176; 80053; 83690; 85025; 93005; 93010; 96361; 96374; 99284-25; J2405; J7030

== ENCOUNTER 2019-02-24 17:56 | Inpatient (IN) | payer OTHER ==
[~2019-02-24] VITALS: Ht 165.1 cm; Wt 85.5 kg
[~2019-02-24 17:56] MED LIST changes: +Augmentin 875-1 EACH PO; +Bumetanide2 MG PO; +ELIQUIS5 MG PO; +Pedi-Dri 100,0060 GM TOP; +Prednisone10 MG PO; +Seroquel Xr50 MG PO; +Ventolin/Prove6.7 GM INH; +Vsl#3 Capsule1 EACH PO
[2019-02-24 18:39] LABS: Source, Urine Catheter
[2019-02-24 18:43] LABS: BASOPHILS ABSOLUTE AUTO 0.03 K/mm3 (0.00-0.23); BASOPHILS PERCENT AUTO 0 % (0-2); EOSINOPHILS PERCENT AUTO 0 % (0-6); Hematocrit 44.3 % (33.0-51.0); Hemoglobin 13.9 g/dL (11.5-16.0); IMMATURE GRAN ABSOLUTE AUTO 0.13 K/mm3 (0.00-0.10); IMMATURE GRAN PERCENT AUTO 1 % (0-1); LYMPHOCYTES ABSOLUTE AUTO 0.66 K/mm3 (0.84-5.20); LYMPHOCYTES PERCENT AUTO 4 % (21-46); MONOCYTES ABSOLUTE AUTO 0.98 K/mm3 (0.16-1.47); MONOCYTES PERCENT AUTO 5 % (4-13); Mean Corpuscular HGB 28.7 pg (26.0-34.0); Mean Corpuscular HGB Conc 31.4 g/dL (31.5-36.5); Mean Platelet Volume 11.4 fL (9.1-12.4); NEUTROPHILS ABSOLUTE AUTO 17.19 K/mm3 (1.96-9.15); NEUTROPHILS PERCENT AUTO 90 % (41-73); Platelet Count 229 K/mm3 (150-400); RDW Coefficient Variation 16.1 % (11.7-14.2); RDW Standard Deviation 53.7 fL (35.1-46.3); Red Blood Cell Count 4.84 M/mm3 (3.80-5.20); White Blood Cell Count 18.99 K/mm3 (4.00-11.30)
[2019-02-24 18:45] LABS: Bilirubin, Urine Neg (Neg); Blood, Urine Neg (Neg); Glucose Qualitative, Urine Neg (Neg); Ketones, Urine Neg (Neg); Leukocyte Esterase, Urine Neg (Neg); Nitrite, Urine Neg (Neg); Protein, Urine 2+ (Neg); Urobilinogen, Urine NORM (Normal)
[2019-02-24 18:49] LABS: Mean Corpuscular Volume 92 fL (80-100)
[2019-02-24 18:57] LABS: Appearance, Urine Clear (Clear); Color, Urine Yellow (P-Yellow)
[2019-02-24 18:59] LABS: Bacteria Rare /hpf; Red Blood Cells, Urine Not Seen /hpf (0-2); Squamous Epithelial Cells Mod /hpf (Few); White Blood Cells, Urine Not Seen /hpf (0-5)
[2019-02-24 19:04] LABS: Albumin, Blood 3.1 g/dL (3.4-5.0); Albumin/Globulin Ratio 0.8 (0.8-1.8); Bilirubin, Total 0.6 mg/dL (0.1-1.0); Bun/Creatinine Ratio 24.6 (12.0-20.0); Calcium, Blood 9.2 mg/dL (8.5-10.1); Creatinine, Blood 1.3 mg/dL (0.40-1.00); Globulin, Blood 3.8 g/dL (2.2-4.0); Total Protein, Blood 6.9 g/dL (6.4-8.2)
--- NOTE | 2019-02-24 22:00 | NUR ---
PT ADMITTED TO ICU-16 FROM ER. PT IS AWAKE, ALERT, BUT ANSWERS MOST QUESTIONS SAYING "YES". PT IS ABLE TO REACH SIDE TO SIDE & ASSIST W POSITION CHANGES, BUT UNABLE TO FULLY REPOSTION SELF INDEPENDENTLY. PT DOES NOT OFFER SPONT CONVERSATION, BUT ANSWERS SIMPLE QUESTIONS W ONE WORD RESPONSES, MOSTLY W "YES". NO FAMILY W PT. PT W ATTENDS IN PLACE, INCONT OF SOFT STOOL. NO BREAKDOWN TO BACK OR MINH AREA (EXCEPT DRY FLAKEY SKIN), BUT WILL PHOTO DRY WOUND TO RLL & LG BRUISED AREA TO JOSE PRESUMED FROM BP CUFF. WILL CALL DR PINEDA TO CONFIRM IV FLUID ORDER, ORIGINALLY ORDERED FOR FLUID BOLUS, THEN DC'D & NEW ORDER SHOWS SAME BOLUS VOLUME.
[2019-02-25 03:25] LABS: BASOPHILS ABSOLUTE AUTO 0.02 K/mm3 (0.00-0.23); BASOPHILS PERCENT AUTO 0 % (0-2); EOSINOPHILS ABSOLUTE AUTO 0.03 K/mm3 (0.00-0.68); EOSINOPHILS PERCENT AUTO 0 % (0-6); Hematocrit 36.9 % (33.0-51.0); Hemoglobin 11.2 g/dL (11.5-16.0); IMMATURE GRAN ABSOLUTE AUTO 0.11 K/mm3 (0.00-0.10); IMMATURE GRAN PERCENT AUTO 1 % (0-1); LYMPHOCYTES ABSOLUTE AUTO 1.55 K/mm3 (0.84-5.20); LYMPHOCYTES PERCENT AUTO 10 % (21-46); MONOCYTES PERCENT AUTO 12 % (4-13); Mean Corpuscular HGB 28.1 pg (26.0-34.0); Mean Corpuscular HGB Conc 30.4 g/dL (31.5-36.5); Mean Corpuscular Volume 93 fL (80-100); Mean Platelet Volume 11.7 fL (9.1-12.4); NEUTROPHILS ABSOLUTE AUTO 11.37 K/mm3 (1.96-9.15); NEUTROPHILS PERCENT AUTO 77 % (41-73); Platelet Count 200 K/mm3 (150-400); RDW Coefficient Variation 16.3 % (11.7-14.2); RDW Standard Deviation 55.3 fL (35.1-46.3); Red Blood Cell Count 3.98 M/mm3 (3.80-5.20); White Blood Cell Count 14.88 K/mm3 (4.00-11.30)
[2019-02-25 03:45] LABS: Bun/Creatinine Ratio 20.6 (12.0-20.0); Creatinine, Blood 1.6 mg/dL (0.40-1.00); Potassium, Blood 3.8 mmol/L (3.5-5.5)
--- NOTE | 2019-02-25 06:00 | NUR ---
PT HAS BECOME MORE ALERT THROUGHOUT SHIFT. CONT W HESITANT VERBAL RESPONSES, BUT SEEMS TO BE MORE OF AN EXPRESSIVE TYPE RESPONSE, POSSIBLY FROM PRIOR CVA HX? CONT SR W PAC'S, BP LOW AT TIMES. PT HAS BEEN ABLE TO ASSIST W TURNING SIDE TO SIDE, CONT IN ATTENDS, VOID X1. PHOTOS TAKEN OF WOUND TO RLL (ANKLE). PT ALSO HAS LARGE ECCYMOSIS TO JOSE LIKELY FROM BP CUFF. SMALLER WRIST CUFF APPLIED.
--- NOTE | 2019-02-25 07:00 | NUR ---
REPORT REPORT AND BEDSIDE ROUNDING WITH ROE GOODEN. ASSUMED PT CARE. PT WAKES UPON ENTERING ROOM. LYING ON RIGHT SIDE FACEING DOOR. DENIES PAIN. WILL ASSESS. OFFGOING RN REPORTS NO SIGNIFICANT ISSUES LAST NIGHT.
--- NOTE | 2019-02-25 07:40 | NUR ---
ASSESSMENT ASSESSMENT CHARTED. PT TURNED TOWARDS LEFT SIDE. SKIN DRY AND FLAKING. LUNGS SOUNDS CLEAR. INCREASED O2 PER NC TO 3L. VS CHARTED. SIGNIFICANT BRUISING TO RIGHT BICEP AREA. PT FOLLOWS DIRECTION EASILY. ATTENDS DRY. IVF INFUSING. PT WITH 2 IVS TO LEFT ARM. SORE TO RIGHT RAMIREZ. PT ALERT TO SELF ONLY. DOES NOT KNOW DATE OR WHERE SHE IS. DOZES EASILY.
--- NOTE | 2019-02-25 07:50 | NUR ---
HOSPITALIST AT BEDSIDE FOR EVAL AND ASSESSMENT. PLAN TO GET ADDITIONAL LABS THIS AM (TROP, BNP AND PROCALCITONIN). PER DR JONES OK TO FEED PT. MONITOR FOR SWALLOWING ISSUES. CBG 94.
--- NOTE | 2019-02-25 08:10 | NUR ---
NEB TREATMENT COMPLETE. SPOKE WITH PT FAMILY TO UPDATE.
--- NOTE | 2019-02-25 08:12 | NUR ---
LAB TO ROOM FOR DRAW.
--- NOTE | 2019-02-25 08:45 | NUR ---
ASSISTED PT WITH SOME BREAKFASAT. PT HAS POOR APPETITE. VSS. LISINOPRIL HELD. PT SWALLOWS WITHOUT DIFFICULTY. OTHER MEDS GIVEN PER EMAR.
--- NOTE | 2019-02-25 11:10 | NUR ---
ATTENDS SOILED WITH STOOL AND URINE. PERICARE DONE, NEW ATTENDS PLACED. SMALL BROWN STOOL NOTED. POWDER PLACED. PT PULLED UP IN BED AND PT ON BACK PER REQUEST.
--- NOTE | 2019-02-25 11:23 | NUR ---
PHYSICAL THERAPY AT BEDSIDE FOR EVAL.
--- NOTE | 2019-02-25 11:52 | NUR ---
UPDATE NO CHANGE FROM PREVIOUS ASSESSMENT. PT WORKED WITH PHYSICAL THERAPY IN BED. PT DID NOT WANT TO GET UP OUT OF BED AT THIS TIME. PT DENIES PAIN. LUNCH TRAY PLACED AT BEDSIDE FOR PT. CBG 102. NO NEED FOR INSULIN COVERAGE. LUNG SOUNDS REMAIN CLEAR. DENIES CP. BP CONTINUES TO FLUCTUATE. HEART CENTER STAFF AT BEDSIDE FOR ECHO.
--- NOTE | 2019-02-25 12:32 | NUR ---
Echocardiogram completed.
--- NOTE | 2019-02-25 15:58 | NUR ---
PT MEDICATED PER EMAR. PERICARE PROVIDED. ATTENDS AND GOWN CHANGED. NOVA REMOVED FROM JOSE.
--- NOTE | 2019-02-25 18:00 | NUR ---
SHIFT SUMMARY PT REMAINS ALERT TO SELF. SOME FAMILY VISITED TODAY. BP IMPROVED. PT DENIES PAIN/SOB. PT TOLERATING O2 AT 2-3L/NC. PT COOPERATIVE AND ABLE TO COMMUNICATE NEEDS. PT BRUISING TO JOSE NO WORSE. NO DRAINING AT THIS TIME. PT BRAXTON REG DIET NOW THAT SHE HAS HER DENTURES. PT INTERACTS WELL. BRAXTON PILLS WITH WATER. HR 80S. 2 BMS TODAY. PT INCONTINENT OF URINE, ABLE TO TELL STAFF WHEN WET. SKIN TO PERIAREA EXCORIATED. WILL REPORT TO ONCOMING SHIFT.
--- NOTE | 2019-02-25 23:48 | NUR ---
CARE ASSUMPTION PT A&O X4. VSS. MONITOR SHOWS NSR, W/ PACs, HR 60s. SPO2 > 92% ON 2L NC. EXTENSIVE BRUISING NOTED T/O EXTREMITIES. WILL CONTINUE TO MONITOR AND PROVIDE CARE.
--- NOTE | 2019-02-26 02:45 | NUR ---
NAUSEA PT W/ EPISODE OF NAUSEA AND SMALL AMOUNT OF CLEAR EMESIS @ APPROX 0200. PT MEDICATED W/ ZOFRAN PER EMAR. WILL CONTINUE TO MONITOR & PROVIDE CARE.
[2019-02-26 03:23] LABS: BASOPHILS ABSOLUTE AUTO 0.04 K/mm3 (0.00-0.23); BASOPHILS PERCENT AUTO 0 % (0-2); EOSINOPHILS ABSOLUTE AUTO 0.17 K/mm3 (0.00-0.68); EOSINOPHILS PERCENT AUTO 1 % (0-6); Hematocrit 34.8 % (33.0-51.0); Hemoglobin 10.8 g/dL (11.5-16.0); IMMATURE GRAN ABSOLUTE AUTO 0.13 K/mm3 (0.00-0.10); IMMATURE GRAN PERCENT AUTO 1 % (0-1); LYMPHOCYTES ABSOLUTE AUTO 1.72 K/mm3 (0.84-5.20); LYMPHOCYTES PERCENT AUTO 12 % (21-46); MONOCYTES ABSOLUTE AUTO 1.41 K/mm3 (0.16-1.47); MONOCYTES PERCENT AUTO 10 % (4-13); Mean Corpuscular HGB 28.4 pg (26.0-34.0); Mean Corpuscular Volume 92 fL (80-100); Mean Platelet Volume 11.3 fL (9.1-12.4); NEUTROPHILS ABSOLUTE AUTO 10.47 K/mm3 (1.96-9.15); NEUTROPHILS PERCENT AUTO 75 % (41-73); Platelet Count 171 K/mm3 (150-400); RDW Coefficient Variation 16.1 % (11.7-14.2); RDW Standard Deviation 54.4 fL (35.1-46.3); White Blood Cell Count 13.94 K/mm3 (4.00-11.30)
[2019-02-26 03:45] LABS: Albumin, Blood 2.3 g/dL (3.4-5.0); Anion Gap 3 mmol/L (6-16); Blood Urea Nitrogen 33 mg/dL (8-24); CO2, Blood 33 mmol/L (21-32); Calcium, Blood 7.6 mg/dL (8.5-10.1); Chloride, Blood 103 mmol/L (98-108); Creatinine, Blood 1.57 mg/dL (0.40-1.00); Glomerular Filtration Rate 34 (60-); Glucose, Blood 97 mg/dL (70-99); Phosphorus, Blood 2.3 mg/dL (2.5-4.9); Potassium, Blood 3.8 mmol/L (3.5-5.5); Sodium, Blood 139 mmol/L (136-145)
--- NOTE | 2019-02-26 05:09 | NUR ---
SHIFT SUMMARY PT CONTINUES TO BE A&O X4. VSS. MONITOR SHOWS NSR, W/ PACs, HR 60s. SPO2 > 92% ON 2L NC. PT INCONTINENT OF URINE AND BOWEL. PRN MINH CARE/ATTENDS CHANGES PROVIDED. PT W/ THIN, FRAGILE SKIN. EXTENSIVE BRUISING NOTED T/O EXTREMITIES. PT REPORTS JOSE BEING TENDER. WILL CONTINUE TO MONITOR AND PROVIDE CARE.
--- NOTE | 2019-02-26 07:29 | NUR ---
ASSUMED CARE: PT RESTING QUIETLY AT THIS TIME. NSR WITH PACS AT THIS TIME. 2L NC. NO ACUTE NEEDS OR CONCERNS AT THIS TIME.
--- NOTE | 2019-02-26 11:13 | NUR ---
PRECEDEX GTT STARTED AT 0.3MCG/KG/MIN FOR AGITATION. FAMILY AT BEDSIDE AND AWARE OF MED AND REASONING. AWAITING EFFECT TO PLACE NG TUBE.
[2019-02-26 12:52] LABS: CPK Creatine Kinase 77 U/L (26-193); Troponin I <0.015 ng/mL (0.000-0.040)
--- NOTE | 2019-02-26 14:45 | NUR ---
Clinical Visit: Pt is alert, drowsy. She appears to know that she is in the hospital. She has no concerns at this time. Her family came to see her yesterday. She's hoping she will get better and go home. She states that she isn't sleeping well in the hospital. Pt reports weight loss - she isn't sure of how much - she states that she is weaker, she isn't eating much. Pt has a substancial bruise on her right arm. She states that this is painful. She is requesting medication for it. Left message to nurse to update on pain level. Will attempt another visit. Hopefully be able to speak to the family regarding advance care planning.
--- NOTE | 2019-02-26 15:00 | NUR ---
PT TRANSFERRED TO 308. REPORT GIVEN TO ARA GOODEN. NO FURTHER NEEDS OR CONCERNS
--- NOTE | 2019-02-26 18:43 | NUR ---
SHIFT SUMMARY PT AXO, THOUGH [facility]. ICU TRANSFER. VSS. BED IN LOW POSITION, CALL LIGHT WITHIN REACH. IV PATENT AND INFUSING PER EMAR. NO ACUTE CHANGES SINCE ARRIVAL TO ROOM.
--- NOTE | 2019-02-26 20:30 | NUR ---
PATIENT JUST FINISHED HER DINNER. STATES SHE NEEDS COMPLETE CHANGE. ATTENDS SATURATED WITH URINE, AND STOOL. STOOL YELLOW AND RUNNY, UNABLE TO COLLECT DUE TO URINE IN IT. CLEANSED PERIAREA WELL, GROIN RED AND PEELING SKIN. BARRIER CREAM APPLIED. NEW ATTENDS AND LINEN CHANGE. REPOSITIONED UP IN BED. IV INFUSING WITH NO PROBLEMS INTO LEFT AC. CALL LIGHT IN REACH. WILL CONTINUE TO MONITOR.
[2019-02-26 21:04] LABS: Vancomycin, Trough 14.2 ug/mL (5.0-10.0)
--- NOTE | 2019-02-26 22:05 | NUR ---
IV LINES IN THE LEFT AC AND LEFT WRIST BOTH WERE BLOODY AND DRESSINGS WERE COMING OFF. CLEANSED BOTH SITES AND PLACED NEW DRESSINGS. FLUSHED BOTH LINES EACH FLUSHED WITH NO PROBLEMS. PATIENT IS HARD TO GET IV SITE. WILL BABY THIS SITE AND MONITOR IT.
--- NOTE | 2019-02-27 05:15 | NUR ---
SHIFT SUMMARY: 84 Y/O FEMALE ADMITTED FOR SEVERE SEPSIS WITH AMS. CAME TO THE FLOOR PRIOR TO MY SHIFT. SHE HAS BEEN PLEASANT AND COOPERATIVE. IV'S HAVE BEEN VERY SENSITIVE DUE TO LEAKAGE BUT FLUSH WELL. NO LEAKAGE WAS NOTED IF IV FLUIDS WERE KEPT AT K[facility]. LABS HAD TROUBLE DRAWING BLOOD HER VEINS ARE VERY POOR, AND BRUISES ARE ON 90% OF HER ARMS. SHE HAS NOT HAD ANY ACUTE CHANGES THIS SHIFT. WILL REPORT TO DAY SHIFT RN.
[2019-02-27 05:33] LABS: BASOPHILS ABSOLUTE AUTO 0.01 K/mm3 (0.00-0.23); BASOPHILS PERCENT AUTO 0 % (0-2); EOSINOPHILS ABSOLUTE AUTO 0.06 K/mm3 (0.00-0.68); EOSINOPHILS PERCENT AUTO 0 % (0-6); Hematocrit 33.4 % (33.0-51.0); Hemoglobin 10.4 g/dL (11.5-16.0); IMMATURE GRAN ABSOLUTE AUTO 0.12 K/mm3 (0.00-0.10); IMMATURE GRAN PERCENT AUTO 1 % (0-1); LYMPHOCYTES ABSOLUTE AUTO 1.29 K/mm3 (0.84-5.20); LYMPHOCYTES PERCENT AUTO 8 % (21-46); MONOCYTES ABSOLUTE AUTO 1.18 K/mm3 (0.16-1.47); MONOCYTES PERCENT AUTO 7 % (4-13); Mean Corpuscular HGB 29.1 pg (26.0-34.0); Mean Corpuscular HGB Conc 31.1 g/dL (31.5-36.5); Mean Corpuscular Volume 94 fL (80-100); Mean Platelet Volume 11.8 fL (9.1-12.4); NEUTROPHILS ABSOLUTE AUTO 13.79 K/mm3 (1.96-9.15); NEUTROPHILS PERCENT AUTO 84 % (41-73); NRBC ABSOLUTE 0.02 K/mm3 (0.00-0.02); NRBC Auto 0.1 /100 WBC (0.0-0.2); Platelet Count 166 K/mm3 (150-400); RDW Coefficient Variation 15.8 % (11.7-14.2); RDW Standard Deviation 54.4 fL (35.1-46.3); Red Blood Cell Count 3.57 M/mm3 (3.80-5.20); White Blood Cell Count 16.45 K/mm3 (4.00-11.30)
[2019-02-27 05:41] LABS: Albumin, Blood 2.2 g/dL (3.4-5.0); Anion Gap 5 mmol/L (6-16); Blood Urea Nitrogen 41 mg/dL (8-24); Bun/Creatinine Ratio 24.8 (12.0-20.0); CO2, Blood 31 mmol/L (21-32); Calcium, Blood 7.9 mg/dL (8.5-10.1); Chloride, Blood 102 mmol/L (98-108); Creatinine, Blood 1.65 mg/dL (0.40-1.00); Glomerular Filtration Rate 32 (60-); Glucose, Blood 116 mg/dL (70-99); Phosphorus, Blood 3.2 mg/dL (2.5-4.9); Potassium, Blood 4.2 mmol/L (3.5-5.5); Sodium, Blood 138 mmol/L (136-145)
--- NOTE | 2019-02-27 10:47 | NUR ---
INFORMED DR PORTILLO OF LOOSE STOOL, SHE ORDERED CDIF. ALSO INFORMED OF NEW BP WITH DIASTOLIC OF 38.
[2019-02-27 14:21] LABS: C DIFFICILE BY DNA AMP Positive (Negative)
--- NOTE | 2019-02-27 18:00 | NUR ---
SHIFT SUMMARY PAT HAD A SOFT BP THIS SHIFT, RECEIVED SM NS BOLUS. GOT UP TO CHAIR WITH AO1 WITH PT, BUT WAS AN AO2 TO GET BACK TO BED. CONTINENT/INCONTINENT. SKIN VERY BRUISED AND RED ON BOTTOM AND BUE, STATES SHE BRUISES EASILY. RUE HEMATOMA HAS SKIN TEAR, DRESSING CHANGED TO STERI STRIPS. TELE SHOWED SINUS CEE WITH PAC AT 56. CBGS WNL. WEANED TO RA WITH SATS AT 97. HAD A FEW LOOSE STOOL TODAY, INCONTINENT, CDIF SAMPLE CAME BACK POSITIVE, UNCLEAR IF IT IS TOXIN OR COLONIZATION AT THIS POINT. DENIES PAIN. CALLS APPROPRIATELY, BUT SOME SHORT TERM MEMORY LOSS NOTED. CALL LIGHT IN REACH, [facility]
--- NOTE | 2019-02-27 20:54 | NUR ---
PATIENT RESTING IN ROOM. RT WAS IN ROOM JUST FINISHED GIVING INHALER. IV INFUSING WITH NO PROBLEMS TO FEILD START IN THE LEFT FA. SHE IS A HARD STICK WILL BABY THIS IV SITE. ATTENDS CHANGED, BM LOOSE AND YELLOW. BARRIER CREAM APPLIED TO BOTTOM DUE TO REDNESS. REPOSITIONED IN BED. DENIED ANY NEEDS AT THIS TIME. ASSESSMENT COMPLETED, CALL LIGHT IN REACH.
--- NOTE | 2019-02-28 00:31 | NUR ---
PATIENT HAS HAD SEVERAL LOOSE BOWEL MOVMENTS, THAT SHE IS UNABLE TO KNOW WHEN SHE GOES. THIS HAS CAUSED HER GROIN AND BOTTOM TO BE EXCORIATED AND RAW. BARRIER CREAM IS BEING APPLIED EACH CHANGE BUT SHE IS VERY TENDER TO WIPE ESPECIALLY THE VAGINAL AREA WHERE IT IS SO RAW THERE IS SOME BLOOD WHEN WE WIPE.
[2019-02-28 05:08] LABS: BASOPHILS ABSOLUTE AUTO 0.03 K/mm3 (0.00-0.23); BASOPHILS PERCENT AUTO 0 % (0-2); EOSINOPHILS ABSOLUTE AUTO 0.21 K/mm3 (0.00-0.68); EOSINOPHILS PERCENT AUTO 1 % (0-6); Hematocrit 31.7 % (33.0-51.0); IMMATURE GRAN ABSOLUTE AUTO 0.11 K/mm3 (0.00-0.10); IMMATURE GRAN PERCENT AUTO 1 % (0-1); LYMPHOCYTES ABSOLUTE AUTO 1.89 K/mm3 (0.84-5.20); LYMPHOCYTES PERCENT AUTO 12 % (21-46); MONOCYTES PERCENT AUTO 8 % (4-13); Mean Corpuscular HGB Conc 31.5 g/dL (31.5-36.5); Mean Corpuscular Volume 92 fL (80-100); Mean Platelet Volume 12.1 fL (9.1-12.4); NEUTROPHILS ABSOLUTE AUTO 12.59 K/mm3 (1.96-9.15); NEUTROPHILS PERCENT AUTO 79 % (41-73); Platelet Count 157 K/mm3 (150-400); RDW Coefficient Variation 16.2 % (11.7-14.2); RDW Standard Deviation 54.1 fL (35.1-46.3); Red Blood Cell Count 3.45 M/mm3 (3.80-5.20); White Blood Cell Count 16.03 K/mm3 (4.00-11.30)
--- NOTE | 2019-02-28 05:14 | NUR ---
SHIFT SUMMARY: 84 Y/O FEMALE ADMITTED FOR AMS, SEVERE SEPSIS, NOW HAS CDIFF. SHE HAS HAD 4 LOOSE BM TONIGHT CAUSING HER GROIN AND BOTTOM TO BE RAW. SHE HAS MILD SKIN BLEEDING IN THE VAGINAL AREA AND THE BOTTOM. BARRIER CREAM HAS BEEN APPLIED EACH CHANGE. REPOSITIONING OFF THE BOTTOM. IV CONTINUED TO INFUSE INTO THE FEILD START WITH NO LEAKAGE. MEDS WERE GIVEN PER EMAR. CALL LIGHT REMAINED IN REACH AND USED APPROPRIATLY. WILL REPORT OFF TO DAY SHIFT.
[2019-02-28 05:29] LABS: Bun/Creatinine Ratio 29.5 (12.0-20.0); Calcium, Blood 7.7 mg/dL (8.5-10.1); Creatinine, Blood 1.22 mg/dL (0.40-1.00); Potassium, Blood 3.7 mmol/L (3.5-5.5)
--- NOTE | 2019-02-28 15:19 | NUR ---
SHIFT SUMMARY PT SLEEPING DURING SHIFT REPORT, BUT LATER REPORTED THAT SHE HADN'T SLEPT ALL NIGHT. PT REPORTED THIS MORNING THAT SHE WAS WEAK, BUT HAD BEEN WORKING WITH P/T. WHEN P/T CAME TO WORK WITH PT, SHE REFUSED BECAUSE SHE WAS TIRED. PER REPORT, PT HAD BEEN WALKING PRIOR TO ADMISSION. PT HAS REMAINED INCONTINENT OF BOWEL AND BLADDER; PER REPORT, PT IS C-DIFF +. PT ADMITTED FOR AMS, BUT SEEMED TO BE MOSTLY ORIENTED AT START OF SHIFT; HOWEVER, PT HAS BECOME MORE AND MORE CONFUSED THE DAY HAS PROGRESSED. BUTTOCKS AND VAGINAL AREA ARE NOW VERY RED AND EXCORIATED FROM CONSTANT DIARRHEA. CALAZIME LOTION APPLIED AFTER EVERY BM FOR BARRIER. PT FROM [facility], ADMITTED AFTER FALL AT HOME; SCATTERED BRUISING THRU OUT, ESPECIALLY ON R ARM. SKIN TEAR AND HEMATOMA TO JOSE WELL. PER REPORT, PT TX'D FROM ICU RECENTLY AND HAS BECOME WEAKER SINCE ADMISSION. RESTING QUIETLY AT THIS TIME. CALL LT IN REACH, ABLE TO USE CALL LT APPROPRIATELY IF NEEDED.
--- NOTE | 2019-03-01 07:44 | NUR ---
PT continues alert confused all shift. Continues to talk to people not in room and has theme of being robbed. o2 2 l nc and continues on iv and oral antibiotic for cdiff. incontinent of bowel and bladder. tx to excoriated periand perianal area continues with mild improvement.
[2019-03-01 08:14] LABS: BASOPHILS ABSOLUTE AUTO 0.03 K/mm3 (0.00-0.23); BASOPHILS PERCENT AUTO 0 % (0-2); EOSINOPHILS ABSOLUTE AUTO 0.08 K/mm3 (0.00-0.68); EOSINOPHILS PERCENT AUTO 1 % (0-6); Hematocrit 33.8 % (33.0-51.0); Hemoglobin 10.2 g/dL (11.5-16.0); IMMATURE GRAN ABSOLUTE AUTO 0.12 K/mm3 (0.00-0.10); IMMATURE GRAN PERCENT AUTO 1 % (0-1); LYMPHOCYTES ABSOLUTE AUTO 1.66 K/mm3 (0.84-5.20); LYMPHOCYTES PERCENT AUTO 10 % (21-46); MONOCYTES ABSOLUTE AUTO 1.71 K/mm3 (0.16-1.47); MONOCYTES PERCENT AUTO 10 % (4-13); Mean Corpuscular HGB 28.3 pg (26.0-34.0); Mean Corpuscular HGB Conc 30.2 g/dL (31.5-36.5); Mean Corpuscular Volume 94 fL (80-100); Mean Platelet Volume 12.6 fL (9.1-12.4); NEUTROPHILS ABSOLUTE AUTO 12.94 K/mm3 (1.96-9.15); NEUTROPHILS PERCENT AUTO 78 % (41-73); Platelet Count 158 K/mm3 (150-400); RDW Coefficient Variation 16.5 % (11.7-14.2); RDW Standard Deviation 56.1 fL (35.1-46.3); White Blood Cell Count 16.54 K/mm3 (4.00-11.30)
[2019-03-01 08:28] LABS: Anion Gap 6 mmol/L (6-16); Blood Urea Nitrogen 28 mg/dL (8-24); Bun/Creatinine Ratio 30.3 (12.0-20.0); CO2, Blood 23 mmol/L (21-32); Calcium, Blood 8.3 mg/dL (8.5-10.1); Chloride, Blood 114 mmol/L (98-108); Creatinine, Blood 0.93 mg/dL (0.40-1.00); Glomerular Filtration Rate >60 (60-); Glucose, Blood 114 mg/dL (70-99); Sodium, Blood 143 mmol/L (136-145)
--- NOTE | 2019-03-01 13:13 | NUR ---
PATIENT'S BP 217/85. CALLED DR ARMENDARIZ TO UPDATE HER AT 1311. DR ARMENDARIZ TO PLACE A FEW NEW ORDERS FOR PATIENT.
--- NOTE | 2019-03-01 14:14 | NUR ---
PATIENT NOT ORIENTED AT ALL. HAVING AUDITORY AND VISUAL HALLUCINATIONS SINCE BEGINNING OF THIS SHIFT. UNABLE TO HOLD CONVERSATION WITH HER. BLOOD PRESSURE RECHECKED AFTER IV HYDRALAZINE ADMINISTERED AND DOWN IN THE 130's SYSTOLICALLY.
--- NOTE | 2019-03-01 15:48 | NUR ---
SHIFT SUMMARY THE PATIENT HAS BEEN HALLUCINATING ALL SHIFT AND HAVING CONVERSATIONS WITH SOMEONE, HOWEVER NO ONE ELSE IS PRESENT. THE PATIENT IS DISORIENTED TO EVEN HERSELF BUT SEEMS TO BE COOPERATIVE WITH STAFF. SHE CONTINUES TO HAVE LOOSE STOOLS AND HAS MUCH REDNESS TO BUTTOCKS AND PERIAREA; BARRIER CREAM APPLIED WITH CHANGES. EXTREME BRUISING TO JOSE WITH SOME OPEN AREAS OF SLIGHT BLEEDING; COVERED WITH MEPILEX BANDAGE TO HELP PROTECT THE SKIN AND SUPPORT SKIN. THE PATIENT CONTINUES ON IV AND PO ABX, NO ADVERSE REACTIONS NOTED THAT SEEM TO BE LINKED TO ABX INTAKE. PATIENT REPOSITIONED WITH CHANGES. WILL CONTINUE TO MONITOR AND PROVIDE CARE NEEDED.
--- NOTE | 2019-03-01 21:08 | NUR ---
PT continues disoriented hallucinating. continues on oral vanco for cdiff and cefazolin for UTI. Skin with multiple briuses rt ue with skin tears and extensive bruises from fall at [facility]. Resusing to wear oxygen room air sat 93 per RT report. PT has white coated tounge has nystatin pained in mouth and tounge. Poor oral intake needs fed. Medicated for gen pain. PT leans to rt side will not straighten neck and is difficult to reposition. Reports seeing black bugs, she has myasthenia gravis and at this time max assist of 2 to 3 for adls and toileting, bed mobility. Continues incontinent of bowel and bladder. Admitted with AMS, falls. PT is DNR status wearing purple band
--- NOTE | 2019-03-02 03:26 | NUR ---
report to Michael RN at bedside who assumed care of PT. PT has allowed use of oxygen per nasal cannula. Oral care has removed some of the white curdlike buildup on tounge which has been swabbed with nystatin oral. Much less intyeraction and verbalization this 8 hours after nonstop talking to self previous night.
[2019-03-02 04:40] LABS: BASOPHILS ABSOLUTE AUTO 0.03 K/mm3 (0.00-0.23); BASOPHILS PERCENT AUTO 0 % (0-2); EOSINOPHILS ABSOLUTE AUTO 0.21 K/mm3 (0.00-0.68); EOSINOPHILS PERCENT AUTO 2 % (0-6); Hematocrit 31.6 % (33.0-51.0); Hemoglobin 9.6 g/dL (11.5-16.0); IMMATURE GRAN ABSOLUTE AUTO 0.07 K/mm3 (0.00-0.10); IMMATURE GRAN PERCENT AUTO 1 % (0-1); LYMPHOCYTES PERCENT AUTO 13 % (21-46); MONOCYTES ABSOLUTE AUTO 1.22 K/mm3 (0.16-1.47); MONOCYTES PERCENT AUTO 12 % (4-13); Mean Corpuscular HGB 28.9 pg (26.0-34.0); Mean Corpuscular HGB Conc 30.4 g/dL (31.5-36.5); Mean Corpuscular Volume 95 fL (80-100); NEUTROPHILS ABSOLUTE AUTO 7.47 K/mm3 (1.96-9.15); NEUTROPHILS PERCENT AUTO 73 % (41-73); Platelet Count 152 K/mm3 (150-400); RDW Coefficient Variation 17.1 % (11.7-14.2); RDW Standard Deviation 59.2 fL (35.1-46.3); Red Blood Cell Count 3.32 M/mm3 (3.80-5.20)
[2019-03-02 05:03] LABS: Bun/Creatinine Ratio 19.5 (12.0-20.0); Calcium, Blood 7.8 mg/dL (8.5-10.1); Creatinine, Blood 0.97 mg/dL (0.40-1.00); Potassium, Blood 3.9 mmol/L (3.5-5.5)
--- NOTE | 2019-03-02 18:45 | NUR ---
SHIFT SUMMARY- PT IS ALERT AND PLESANT, SOME CONFUSION. PT WAS HAVING DIFFICULTY CATCHING HER BREATH THIS MORNING. GAVE IV DIURETIC, WHICH DECREASED LABOR OF BREATHING. PT REPORTED SHE FELT BETTER THIS AFTERNOON. PT SLEPT INTERMITENTLY THROUGHOUT THIS SHIFT. PT BOTTOM WAS VERY RED AND PAINFUL. SPOKE WITH THE CARE PROVIDER AND PLACED RECTAL TUBE PER ORDERS. PT TOLERATED WELL.
--- NOTE | 2019-03-03 00:42 | NUR ---
SPOKE TO KELECHI REYNOLDS BILLET DRILLER REGARDING PCU TELEMTRY REPORTING 25 SSEC RUN OF V-TACH AT APPROX 2315, PT IS ASYMPTOMAITC, IN NO APPARENT DISTRESS, NO SOB, DIAPHORESIS, NO N/V/D. WILL CONTINUE TO MONITOR -
[2019-03-03 04:52] LABS: BASOPHILS ABSOLUTE AUTO 0.01 K/mm3 (0.00-0.23); BASOPHILS PERCENT AUTO 0 % (0-2); EOSINOPHILS ABSOLUTE AUTO 0.12 K/mm3 (0.00-0.68); EOSINOPHILS PERCENT AUTO 1 % (0-6); Hematocrit 32.1 % (33.0-51.0); Hemoglobin 9.8 g/dL (11.5-16.0); IMMATURE GRAN PERCENT AUTO 1 % (0-1); LYMPHOCYTES ABSOLUTE AUTO 1.53 K/mm3 (0.84-5.20); LYMPHOCYTES PERCENT AUTO 12 % (21-46); MONOCYTES ABSOLUTE AUTO 1.31 K/mm3 (0.16-1.47); MONOCYTES PERCENT AUTO 10 % (4-13); Mean Corpuscular HGB 28.3 pg (26.0-34.0); Mean Corpuscular HGB Conc 30.5 g/dL (31.5-36.5); Mean Corpuscular Volume 93 fL (80-100); Mean Platelet Volume 11.9 fL (9.1-12.4); NEUTROPHILS PERCENT AUTO 76 % (41-73); NRBC ABSOLUTE 0.02 K/mm3 (0.00-0.02); NRBC Auto 0.2 /100 WBC (0.0-0.2); Platelet Count 158 K/mm3 (150-400); RDW Coefficient Variation 17.3 % (11.7-14.2); RDW Standard Deviation 58.5 fL (35.1-46.3); Red Blood Cell Count 3.46 M/mm3 (3.80-5.20); White Blood Cell Count 12.97 K/mm3 (4.00-11.30)
[2019-03-03 05:17] LABS: Bun/Creatinine Ratio 24.3 (12.0-20.0); Calcium, Blood 8.2 mg/dL (8.5-10.1); Creatinine, Blood 1.07 mg/dL (0.40-1.00); Potassium, Blood 3.9 mmol/L (3.5-5.5)
--- NOTE | 2019-03-03 12:30 | NUR ---
PT. UP TO BSC WITH 2 PERSON ASSIST. PT'S RECTAL TUBE FELL OUT WHEN SHE WAS ON BSC. HAD A SLIGHTLY FORMED STOOL. DID NOT REPLACED RECTAL TUBE.
--- NOTE | 2019-03-03 19:31 | NUR ---
PT. SLEEPING CONTINUES TO HAVE LOOSE STOOLS OCCASSIONALY , BUT IS CONSTANTLY WET R/T HER BEING DIURESED. MINH AREA AND BUTT CREVICE EXCORIATED. ON COMING SHIFT TO SEE IF WE CAN PUT IN A GARCIA CATHER.
[2019-03-04 05:08] LABS: BASOPHILS ABSOLUTE AUTO 0.02 K/mm3 (0.00-0.23); BASOPHILS PERCENT AUTO 0 % (0-2); EOSINOPHILS ABSOLUTE AUTO 0.24 K/mm3 (0.00-0.68); EOSINOPHILS PERCENT AUTO 2 % (0-6); Hematocrit 34.1 % (33.0-51.0); Hemoglobin 10.3 g/dL (11.5-16.0); IMMATURE GRAN ABSOLUTE AUTO 0.11 K/mm3 (0.00-0.10); IMMATURE GRAN PERCENT AUTO 1 % (0-1); LYMPHOCYTES PERCENT AUTO 14 % (21-46); MONOCYTES PERCENT AUTO 12 % (4-13); Mean Corpuscular HGB 28.3 pg (26.0-34.0); Mean Corpuscular HGB Conc 30.2 g/dL (31.5-36.5); Mean Corpuscular Volume 94 fL (80-100); Mean Platelet Volume 12.1 fL (9.1-12.4); NEUTROPHILS ABSOLUTE AUTO 7.94 K/mm3 (1.96-9.15); NEUTROPHILS PERCENT AUTO 71 % (41-73); Platelet Count 181 K/mm3 (150-400); RDW Coefficient Variation 17.4 % (11.7-14.2); RDW Standard Deviation 59.7 fL (35.1-46.3); Red Blood Cell Count 3.64 M/mm3 (3.80-5.20); White Blood Cell Count 11.21 K/mm3 (4.00-11.30)
[2019-03-04 05:37] LABS: Bun/Creatinine Ratio 20.4 (12.0-20.0); Calcium, Blood 7.9 mg/dL (8.5-10.1); Creatinine, Blood 1.03 mg/dL (0.40-1.00); Magnesium, Blood 1.7 mg/dL (1.6-2.4); Potassium, Blood 3.5 mmol/L (3.5-5.5)
--- NOTE | 2019-03-04 05:41 | NUR ---
SHIFT SUMARY: PATIENT INCONTINNENET OF BOWEL AND BLADDER BOTH AND FREQUENTLY. FREQUENT CHANGES WERE DONE AND NYSTATIN POWDER OR BLUE CAP CREAM WERE APPLIED. SKIN IS IMPROVING.
--- NOTE | 2019-03-04 07:55 | NUR ---
PATIENT HAD A RUN OF VTACH AGAIN PER TELEMTRY TECH ALSO A RUN OF AFLUTTER. PT REMAINS ASYMPTOMATIC. NO OTHER CHANGES TO REPORT.
--- NOTE | 2019-03-04 18:39 | NUR ---
PT. SITTING IN BED WATCHING TV. COMPLAINED THAT SHE WAS GIVEN GROUND MEAT. HAS BEEN UP TO CHAIR A COUPLE TIMES TODAAY WITH 2 PERSON ASSIST, FWW AND GAIT BELT. MUCH STRONGER TODAY THAN YESTERDAY. ALSO UP TO BSC FOR BM AND URINE. OCCASSIONALLY DOESNT QUITE MAKE IT. SKIN IS STILL ECCHYMOTIC, EXCORIAYED, ENDEMATOUS. DOES NOT APPEAR TO BE GETTING ANY BETTER WITH THE EDEMA. PT. VERY PLEASANT AND COOPERATIVE.
--- NOTE | 2019-03-05 06:24 | NUR ---
SHIFT SUMMARY PT A/O ONLY C/O PAIN DUE TO EXCORIATED BUTTOCKS DURING PERICARE. STOOLS WERE PUDDING LIKE IN CONSISTENCY BUT WAS INCONT OF BOWEL AND BLADDER. 2L O2 NC. SHE SAID SHE SLEPT ON AND OFF T/O NIGHT. CALL LIGHT IN REACH.
[2019-03-05] MEDS ORDERED: LACT PO (16:21)
[2019-03-05] MEDS ORDERED: VANCOCIN HCL250 MG PO (16:24)
== END 2019-03-05 16:45 | disposition home or self-care (01) | DRG 871 ==
LOC: ER 17:56 → ICUW 19:34 → MEDS 02-26 14:58 → ICUW 02-26 14:58 → MEDS 02-26 15:49
PROVIDERS: Emergency Medicine; Internal Medicine; ADMIT Family Medicine
DX: A41.9 Sepsis, unspecified organism (principal); G92 Toxic encephalopathy; J96.01 Acute respiratory failure with hypoxia; I48.20 Chronic atrial fibrillation, unspecified; I50.32 Chronic diastolic (congestive) heart failure; N17.9 Acute kidney failure, unspecified; L03.113 Cellulitis of right upper limb; J44.9 Chronic obstructive pulmonary disease, unspecified; E11.22 Type 2 diabetes mellitus with diabetic chronic kidney disease; G47.33 Obstructive sleep apnea (adult) (pediatric); I12.9 Hypertensive chronic kidney disease with stage 1 through stage 4 chronic kidney disease, or unspecified chronic kidney disease; Z86.73 Personal history of transient ischemic attack (TIA), and cerebral infarction without residual deficits; N18.3 Chronic kidney disease, stage 3 (moderate); Z86.69 Personal history of other diseases of the nervous system and sense organs; Z99.81 Dependence on supplemental oxygen; Z79.01 Long term (current) use of anticoagulants; F03.90 Unspecified dementia, unspecified severity, without behavioral disturbance, psychotic disturbance, mood disturbance, and anxiety; I95.9 Hypotension, unspecified; D63.1 Anemia in chronic kidney disease; S40.012A Contusion of left shoulder, initial encounter; Y92.9 Unspecified place or not applicable; Z66 Do not resuscitate; G47.00 Insomnia, unspecified; S40.021A Contusion of right upper arm, initial encounter; R65.20 Severe sepsis without septic shock; S30.810A Abrasion of lower back and pelvis, initial encounter
CPT/HCPCS: 36415; 70450; 71045; 74018; 80048; 80053; 80069; 80202; 81001; 82550; 82947; 83605; 83735; 83880; 84100; 84145; 84484; 85025; 87040; 87324; 87493; 93005; 93010; 93306; 94640; 94660; 94760; 94762; 96365; 96372-59; 97110; 97162; 97530; 99285-25; A9270; J0360; J0690; J1644; J1940; J1956; J2405; J3370; J7030; J7040; J7050; J7120; J7512; P9612

== ENCOUNTER → 2019-03-11 | Outpatient (CLI) | payer OTHER ==
[~2019-03-11] MED LIST changes: +LACT PO; +VANCOCIN HCL250 MG PO
[2019-03-11 15:52] LABS: Source, Urine Voided
[2019-03-11 16:22] LABS: Bilirubin, Urine Neg (Neg); Blood, Urine Neg (Neg); Glucose Qualitative, Urine Neg (Neg); Ketones, Urine Neg (Neg); Leukocyte Esterase, Urine 2+ (Neg); Nitrite, Urine Neg (Neg); Protein, Urine Neg (Neg); Specific Gravity, Urine 1.005 (1.003-1.022); Urobilinogen, Urine NORM (Normal)
[2019-03-11 16:35] LABS: Appearance, Urine Clear (Clear); Color, Urine Yellow (P-Yellow)
[2019-03-11 16:36] LABS: Bacteria Many /hpf; Red Blood Cells, Urine 0-2 /hpf (0-2); Squamous Epithelial Cells Few /hpf (Few); White Blood Cells, Urine 50-100 /hpf (0-5)
== END ==
LOC: LAB SHORT 15:50 → LAB 15:50
PROVIDERS: Nurse Practitioner Family
DX: N39.0 Urinary tract infection, site not specified (principal)
CPT/HCPCS: 81001; 87077; 87086; 87186

== ENCOUNTER → 2019-03-23 | Outpatient (CLI) | payer OTHER ==
[~2019-03-23] MED LIST changes: +ALBU2.5V5 INH; +LISI5 PO; +POTA10T PO; +TORSE20; +VANCOCIN HCL125 MG PO
[2019-03-23 19:34] LABS: Bilirubin, Urine Neg (Neg); Blood, Urine 2+ (Neg); Glucose Qualitative, Urine Neg (Neg); Ketones, Urine Neg (Neg); Leukocyte Esterase, Urine 3+ (Neg); Nitrite, Urine Neg (Neg); Protein, Urine 1+ (Neg); Urobilinogen, Urine NORM (Normal)
[2019-03-23 19:47] LABS: Appearance, Urine Cloudy (Clear); Color, Urine Pale Yellow (P-Yellow)
[2019-03-23 19:48] LABS: Bacteria Mod /hpf; Squamous Epithelial Cells Few /hpf (Few); White Blood Cells, Urine TNTC /hpf (0-5)
== END | disposition home or self-care (01) ==
LOC: OLS 12:00 → LAB SHORT 12:00
PROVIDERS: Student in an Organized Health Care Education/Training Program
DX: N39.0 Urinary tract infection, site not specified (principal)
CPT/HCPCS: 81001; 87077; 87086; 87186

== ENCOUNTER 2019-03-26 17:25 | Inpatient (IN) | payer OTHER ==
[~2019-03-26] VITALS: Ht 165.1 cm; Wt 75.5 kg
[~2019-03-26 17:25] MED LIST changes: -ALBU2.5V5 INH; -LISI5 PO; -TORSE20; -VANCOCIN HCL125 MG PO
[2019-03-26] MEDS ORDERED: LISI5 PO ×2 (17:44→21:18)
[2019-03-26 18:13] LABS: BASOPHILS ABSOLUTE AUTO 0.02 K/mm3 (0.00-0.23); BASOPHILS PERCENT AUTO 0 % (0-2); EOSINOPHILS PERCENT AUTO 0 % (0-6); Hematocrit 39.3 % (33.0-51.0); Hemoglobin 11.9 g/dL (11.5-16.0); IMMATURE GRAN ABSOLUTE AUTO 0.11 K/mm3 (0.00-0.10); IMMATURE GRAN PERCENT AUTO 1 % (0-1); LYMPHOCYTES ABSOLUTE AUTO 0.92 K/mm3 (0.84-5.20); LYMPHOCYTES PERCENT AUTO 5 % (21-46); MONOCYTES ABSOLUTE AUTO 0.36 K/mm3 (0.16-1.47); MONOCYTES PERCENT AUTO 2 % (4-13); Mean Corpuscular HGB 28.3 pg (26.0-34.0); Mean Corpuscular HGB Conc 30.3 g/dL (31.5-36.5); Mean Corpuscular Volume 93 fL (80-100); Mean Platelet Volume 11.5 fL (9.1-12.4); NEUTROPHILS ABSOLUTE AUTO 16.82 K/mm3 (1.96-9.15); NEUTROPHILS PERCENT AUTO 92 % (41-73); Platelet Count 298 K/mm3 (150-400); RDW Coefficient Variation 15.9 % (11.7-14.2); RDW Standard Deviation 54.2 fL (35.1-46.3); Red Blood Cell Count 4.21 M/mm3 (3.80-5.20); White Blood Cell Count 18.23 K/mm3 (4.00-11.30)
[2019-03-26 18:30] LABS: Albumin, Blood 2.6 g/dL (3.4-5.0); Albumin/Globulin Ratio 0.7 (0.8-1.8); Bilirubin, Total 0.7 mg/dL (0.1-1.0); Bun/Creatinine Ratio 22.4 (12.0-20.0); Calcium, Blood 8.1 mg/dL (8.5-10.1); Creatinine, Blood 1.56 mg/dL (0.40-1.00); Globulin, Blood 3.8 g/dL (2.2-4.0); Potassium, Blood 4.7 mmol/L (3.5-5.5); Total Protein, Blood 6.4 g/dL (6.4-8.2)
[2019-03-26] MEDS ORDERED: Florastor250 MG PO (19:03)
[2019-03-26] MEDS ORDERED: Seroquel Xr50 MG PO (19:11)
--- NOTE | 2019-03-26 20:20 | NUR ---
Patient arrived from ER into room 341. A&O X4, No complaints of discomfort, or pain with urination. OOB with one assist to ambulate to bathroom. has hx of intermittant mild confusion and hallulcinations. (has rx for PRN Seroquel) Bed alarm on and call light in place. Of note, large bruise left lateral ankle. lower extremities discolored reddish brown bilaterally. Skin very thin and fragile. lung sounds clear to auscultation, on room air, AP irregular with hx of A fib. slight pitting arms and ankles and feet. Pt understands the reason for her admission is due to the psudomonas in her urine being very antibiotic resistant and can only be treated with IV medications.
[2019-03-26 23:18] LABS: Source, Urine Clean Catch
[2019-03-26 23:52] LABS: Appearance, Urine Cloudy (Clear); Bilirubin, Urine Neg (Neg); Blood, Urine 4+ (Neg); Color, Urine Yellow (P-Yellow); Glucose Qualitative, Urine Neg (Neg); Ketones, Urine Neg (Neg); Leukocyte Esterase, Urine 3+ (Neg); Nitrite, Urine Neg (Neg); Protein, Urine 3+ (Neg); Specific Gravity, Urine 1.015 (1.003-1.022); Urobilinogen, Urine NORM (Normal); pH, Urine 6.5 (5.0-8.0)
[2019-03-27 00:24] LABS: White Blood Cells, Urine TNTC /hpf (0-5)
[2019-03-27 00:25] LABS: Bacteria Many /hpf; Squamous Epithelial Cells Few /hpf (Few)
[2019-03-27 05:24] LABS: Hematocrit 38.3 % (33.0-51.0); Hemoglobin 11.5 g/dL (11.5-16.0); Mean Corpuscular HGB 27.9 pg (26.0-34.0); Mean Corpuscular Volume 93 fL (80-100); Mean Platelet Volume 11.1 fL (9.1-12.4); Platelet Count 273 K/mm3 (150-400); RDW Coefficient Variation 15.9 % (11.7-14.2); RDW Standard Deviation 53.8 fL (35.1-46.3); Red Blood Cell Count 4.12 M/mm3 (3.80-5.20)
[2019-03-27 05:53] LABS: Albumin, Blood 2.5 g/dL (3.4-5.0); Albumin/Globulin Ratio 0.7 (0.8-1.8); Bilirubin, Total 0.7 mg/dL (0.1-1.0); Bun/Creatinine Ratio 23.1 (12.0-20.0); Calcium, Blood 8.1 mg/dL (8.5-10.1); Creatinine, Blood 1.56 mg/dL (0.40-1.00); Globulin, Blood 3.5 g/dL (2.2-4.0); Potassium, Blood 3.9 mmol/L (3.5-5.5)
--- NOTE | 2019-03-27 06:24 | NUR ---
Patient A&OX4 with eccymotic areas all over, but most prominant over her extremities. photo taken of left lateral maleolus which is very swollen and eccymotic. she stated she bumped it n a chair at home before coming to the hospital last evening. Concerned she might need imaging altho she is ambulating without much difficulty with FWW and INDUSTRIAL MANUFACTURING TECHNICIAN to bathroom. Lipase went from 2.3 to 2.7 in time between ER and room 341. Hospitalist informed when information was called to floor. cultures on UA sent last night still pending.
--- NOTE | 2019-03-27 13:16 | NUR ---
WOUND CARE PT STATED THAT SHE THOUGHT THE DRESSING FOR HER R UPPER ARM WAS COMPLETED DURING ATMOSPHERIC DRIER TENDER EARLY IN THE MORNING. FOR THIS REASON WOUND CARE DURRING THIS SHIFT WILL BE HELD UNLESS DRAINAGE INCREASES. PT STATES THAT DRESSINGS ARE CHANGED DAILY WHEN AT HOME. WILL CONTINUE TO MONITOR.
--- NOTE | 2019-03-27 14:43 | NUR ---
DNR BAND PLACED DNR BAND PLACED TO R WRIST. VERIFIED BY BELKYS MORALES RN.
--- NOTE | 2019-03-27 22:21 | NUR ---
BP 95/33. PO LOPRESSOR AND ZESTRIL HELD PER PARAMETERS: SBP LESS THAN 120/55.
--- NOTE | 2019-03-28 01:20 | NUR ---
PATIENT REPORTS SHE USES 2L O2 NC PRN AT NIGHT. STATING 87-90% ON ROOM AIR FEELING SOB. PATIENT PUT ON 2L O2 NC AND STATING 92-95%. SHE WILL DROP SLIGHTLY WITH CONVERSATION. RESTING COMFORTABLY NOW. CALL LIGHT IN REACH. WILL CONTINUE TO MONITOR.
--- NOTE | 2019-03-28 02:42 | NUR ---
PATIENT HAVING AUDITORY HALLUCINATIONS GIVING SOMEONE DIRECTIONS ON HOW TO DO SOMETHING. HALLUCINATIONS LASTING LAST HOUR ON AND OFF.
--- NOTE | 2019-03-28 03:24 | NUR ---
SHIFT SUMMARY PATIENT BP 95/33 AND PO LOPRESSOR AND ZESTRIL HELD PER PARAMETERS. AXOX 3 AND ONE ASSIST TO BSC. AC/HS. CBG 110. PIV REMAINS INTACT. IV ABX INFUSED. DENIES PAIN, SOB, AND N/V. TAKES MEDICATION WHOLE WITH APPLE SAUCE. AUDITORY HALLUCINATIONS FOR A FEW HOURS AFTER MIDNIGHT ON/OFF. PATIENT REPORTED SOB AND USES O2 2L NC AT NIGHT AT [facility]. PATIENT STATING 87-90% ON ROOM AIR. PLACED ON 2L O2 NC AND STATING 92-95%. DROPPING O2 STATS SLIGHTLY WITH CONVERSATION. COOPERATIVE WITH CARE. CALL LIGHT IN REACH. BED IN LOWEST POSITION. WILL CONTINUE TO MONITOR UNTIL DAY SHIFT NURSE ASSUMES CARE.
--- NOTE | 2019-03-28 04:17 | NUR ---
PATIENT HAVING VISUAL AND AUDITORY HALLUCINATIONS. REPORTS SEEING T[age] YEAR OLD BOY GO DOWN FLIGHT OF STAIRS IN ROOM WITH DIFFICULTY BREATHING. PATIENT REPORTS SEEING SOMEONE SMOKING. HAVING CONVERSATION WITH THEM.
--- NOTE | 2019-03-28 05:24 | NUR ---
INCREASED CONFUSION NOTED. PATIENT REPORTS SEEING A BUS STOP AND WANTS TO GET READY TO GET ON IT. ALSO DOES NOT WANT TO GET HER PERSONAL ITEMS WET FROM THE RAIN. AUDITORY HALLUCIANTIONS CONTINUE HOLDING CONVERSATIONS WITH OTHERS.
--- NOTE | 2019-03-28 15:47 | NUR ---
ALERT. CONFUSED. AUDITORY AND VISUAL HALLUCINATIONS. RT UPPER ARM BRUISED W/NEW SKIN DRESSING WHICH IS NOT NORMALLY CHANGED DAILY. IN PLACE SO NOT CHANGED TODAY. BRUISING T/O. VENOUS STAINING BLE'S. IV CHANGED TO POSRERIOR LEFT F.A. AWARE OF HALLUCINATIONS. UNLABORED RESPIRATIONS. FREQUENT ROUNDING. BED ALARM ON. [facility]
--- NOTE | 2019-03-28 20:26 | NUR ---
AUDITORY/VISUAL HALLUCIANTIONS CONTINUE FROM DAY SHIFT. WILL CONTINUE TO MONITOR
--- NOTE | 2019-03-29 03:24 | NUR ---
SHIFT SUMMARY PATIENT HAD NO ACUTE CHANGES OBSERVED. AUDITORY/VISUAL HALLUCINATIONS THE WHOLE SHIFT. PATIENT NOT ABLE TO REORIENT AT THIS TIME. ONE ASSIST TO BSC. TAKES MEDICATION WHOLE IN APPLE SAUCE. BP 98/62 AT SHIFT CHANGE AND LOPRESSOR AND ZESTRIL PO MEDS HELD PER PARAMETERS. NOW 140/80. VSS/AFEBRILE. ON 2L O2 NC. DENIES PAIN, SOB, AND N/V. PIV REMAINS INTACT. IV ABX INFUSED. CALL LIGHT IN REACH. BED IN LOWEST POSITION WITH ALARM ACTIVATED. NO BED ALARM EVENTS. WILL CONTINUE TO MONITOR UNTIL DAY SHIFT NURSE ASSUMES CARE.
--- NOTE | 2019-03-29 04:34 | NUR ---
PATIENT ATTEMPT BED EXIT TO GO FOOD SHOPPING. REORIENTED BACK INTO BED FOR LAB DRAW. CONFUSED AND STILL HALLUCINATING.
[2019-03-29 05:02] LABS: BASOPHILS ABSOLUTE AUTO 0.04 K/mm3 (0.00-0.23); BASOPHILS PERCENT AUTO 0 % (0-2); EOSINOPHILS ABSOLUTE AUTO 0.04 K/mm3 (0.00-0.68); EOSINOPHILS PERCENT AUTO 0 % (0-6); Hematocrit 38.3 % (33.0-51.0); Hemoglobin 11.8 g/dL (11.5-16.0); IMMATURE GRAN ABSOLUTE AUTO 0.17 K/mm3 (0.00-0.10); IMMATURE GRAN PERCENT AUTO 1 % (0-1); LYMPHOCYTES ABSOLUTE AUTO 2.45 K/mm3 (0.84-5.20); LYMPHOCYTES PERCENT AUTO 12 % (21-46); MONOCYTES ABSOLUTE AUTO 1.78 K/mm3 (0.16-1.47); MONOCYTES PERCENT AUTO 9 % (4-13); Mean Corpuscular HGB 28.4 pg (26.0-34.0); Mean Corpuscular HGB Conc 30.8 g/dL (31.5-36.5); Mean Corpuscular Volume 92 fL (80-100); Mean Platelet Volume 11.1 fL (9.1-12.4); NEUTROPHILS ABSOLUTE AUTO 15.75 K/mm3 (1.96-9.15); NEUTROPHILS PERCENT AUTO 78 % (41-73); Platelet Count 276 K/mm3 (150-400); RDW Coefficient Variation 15.9 % (11.7-14.2); RDW Standard Deviation 53.1 fL (35.1-46.3); Red Blood Cell Count 4.16 M/mm3 (3.80-5.20); White Blood Cell Count 20.23 K/mm3 (4.00-11.30)
[2019-03-29 05:36] LABS: Bun/Creatinine Ratio 33.3 (12.0-20.0); Creatinine, Blood 1.11 mg/dL (0.40-1.00); Magnesium, Blood 2.5 mg/dL (1.6-2.4); Potassium, Blood 4.1 mmol/L (3.5-5.5)
--- NOTE | 2019-03-29 05:53 | NUR ---
ATTEMPTED BED EXIT. PATIENT CONFUSED AND WANTING TO GO WALK. DRY ATTENDS. PATIENT LEGS BACK IN BED. REPOSITIONED. BED ALARM ACTIVATED. WILL CONTINUE TO MONITOR.
--- NOTE | 2019-03-29 06:12 | NUR ---
PATIENT NEVER SLEPT AND NEVER STOPPED HALLUCINATING THIS SHIFT; AUDITORY/VISUAL.
--- NOTE | 2019-03-29 10:16 | NUR ---
ADVISED DR HARRIS POSSIBLE THRUSH. REQUEST NYSTATIN S&S. OK TO ORDER QID
--- NOTE | 2019-03-29 12:26 | NUR ---
ALERT TO SELF. NOT ALWAYS COOPERATIVE. REFUSES FOOD. HAS NOT EATTEN BREAKFAST OR LUNCH TODAY. MAKES FIST W.LEFT HAND AND IT APPEARS NAILS ARE STARTING TO DIP INTO HER PALM. AUDITORY AND VISUAL HALLUCINATIONS. MEDS HAVE BEEN CHANGED TO HOPEFULLY ALLEVIATE THE HALLUCINATONS. UNLABORED RESPIRATIONS. MEDS FOR THRUSH OBTAINED. BED IN LOW POSITION. TM
--- NOTE | 2019-03-29 14:20 | NUR ---
AWARE PATIENT VERY CONFUSED AND VERY POOR APPETITE. HAS CHANGED MEDS. WCTM
--- NOTE | 2019-03-29 17:47 | NUR ---
SEE PREVIOUS NOTE. ALERT TO SELF. BRUISING ALL EXTREMITIES.THIN FRAGILE SKIN. CRADLE USED TO KEEP BLANKETS OFF FEET/LEGS. ATTEMPT TO GET PATIENT UP TO CHAIR FOR DINNER, BUT PATIENT TOO SLEEPY. FEEDER. AWARE SHE IS IN [place]. STILL AUDITORY AND VISUAL HALLUCINATIONS TODAY. TAKES MEDS W/APPLESAUCE. IV PATENT. UNLABORED RESPIRATIONS. WCTM
--- NOTE | 2019-03-29 18:03 | NUR ---
ADVISED NO B.M. SINCE ADMIT. DIFFICULT TO GET PATIENT TO TAKE MIRALAX, CAN HAVE ORDER FOR PILLS SHE WILL TAKE THEM IN APPLESAUCE. OK TO ORDER COLACE 200 MG BID.
--- NOTE | 2019-03-29 21:37 | NUR ---
NO HALLUCINATIONS AT THIS TIME. TOOK HER SCHEDULE MEDS WITH APPLE SAUCE INCLUDING COLACE. SLEEPING BUT AROUSABLE. WILL CONTINUE TO MONITOR.
--- NOTE | 2019-03-30 03:36 | NUR ---
ASSUMED CARE OF PATIENT. ASLEEP IN BED, NO APPARENT DISTRESS NOTED. CALL LIGHT WITHIN REACH, SIDE RAILS UP X2, AND BED IN LOW POSITION. WILL CONT TO MONITOR.
[2019-03-30 05:37] LABS: BASOPHILS ABSOLUTE AUTO 0.04 K/mm3 (0.00-0.23); BASOPHILS PERCENT AUTO 0 % (0-2); EOSINOPHILS ABSOLUTE AUTO 0.16 K/mm3 (0.00-0.68); EOSINOPHILS PERCENT AUTO 1 % (0-6); Hematocrit 35.8 % (33.0-51.0); Hemoglobin 10.8 g/dL (11.5-16.0); IMMATURE GRAN ABSOLUTE AUTO 0.12 K/mm3 (0.00-0.10); IMMATURE GRAN PERCENT AUTO 1 % (0-1); LYMPHOCYTES ABSOLUTE AUTO 1.94 K/mm3 (0.84-5.20); LYMPHOCYTES PERCENT AUTO 11 % (21-46); MONOCYTES ABSOLUTE AUTO 1.13 K/mm3 (0.16-1.47); MONOCYTES PERCENT AUTO 6 % (4-13); Mean Corpuscular HGB 28.1 pg (26.0-34.0); Mean Corpuscular HGB Conc 30.2 g/dL (31.5-36.5); Mean Corpuscular Volume 93 fL (80-100); Mean Platelet Volume 11.2 fL (9.1-12.4); NEUTROPHILS ABSOLUTE AUTO 14.63 K/mm3 (1.96-9.15); NEUTROPHILS PERCENT AUTO 81 % (41-73); Platelet Count 246 K/mm3 (150-400); RDW Coefficient Variation 16.4 % (11.7-14.2); RDW Standard Deviation 55.3 fL (35.1-46.3); Red Blood Cell Count 3.84 M/mm3 (3.80-5.20); White Blood Cell Count 18.02 K/mm3 (4.00-11.30)
[2019-03-30 05:57] LABS: Bun/Creatinine Ratio 25.8 (12.0-20.0); Calcium, Blood 8.2 mg/dL (8.5-10.1); Creatinine, Blood 1.51 mg/dL (0.40-1.00); Potassium, Blood 3.7 mmol/L (3.5-5.5)
[2019-03-30 06:20] LABS: BASOPHILS ABSOLUTE AUTO 0.03 K/mm3 (0.00-0.23); BASOPHILS PERCENT AUTO 0 % (0-2); EOSINOPHILS ABSOLUTE AUTO 0.15 K/mm3 (0.00-0.68); EOSINOPHILS PERCENT AUTO 1 % (0-6); Hematocrit 36.7 % (33.0-51.0); Hemoglobin 11.1 g/dL (11.5-16.0); IMMATURE GRAN ABSOLUTE AUTO 0.13 K/mm3 (0.00-0.10); IMMATURE GRAN PERCENT AUTO 1 % (0-1); LYMPHOCYTES PERCENT AUTO 12 % (21-46); MONOCYTES ABSOLUTE AUTO 1.18 K/mm3 (0.16-1.47); MONOCYTES PERCENT AUTO 8 % (4-13); Mean Corpuscular HGB 28.2 pg (26.0-34.0); Mean Corpuscular HGB Conc 30.2 g/dL (31.5-36.5); Mean Corpuscular Volume 93 fL (80-100); Mean Platelet Volume 11.4 fL (9.1-12.4); NEUTROPHILS ABSOLUTE AUTO 12.06 K/mm3 (1.96-9.15); NEUTROPHILS PERCENT AUTO 78 % (41-73); Platelet Count 272 K/mm3 (150-400); RDW Coefficient Variation 16.2 % (11.7-14.2); Red Blood Cell Count 3.94 M/mm3 (3.80-5.20); White Blood Cell Count 15.45 K/mm3 (4.00-11.30)
[2019-03-30 06:33] LABS: Bun/Creatinine Ratio 24.8 (12.0-20.0); Calcium, Blood 8.4 mg/dL (8.5-10.1); Creatinine, Blood 1.57 mg/dL (0.40-1.00); Potassium, Blood 4.3 mmol/L (3.5-5.5)
--- NOTE | 2019-03-30 18:22 | NUR ---
SHIFT SUMMARY PT HAS HAD NO ACUTE CHANGEDS THIS SHIFT, SLEPT ON/OF T/O SHIFT, PT SITTING UP EATING DINNER, WILL CONT TO MONITOR UNTIL REPORT GIVEN TO HOWARD GOODEN.
--- NOTE | 2019-03-31 04:31 | NUR ---
SHIFT SUMMARY NO CONFUSION NOTED THIS SHIFT. WE ARE Q 2 TURNING THIS PT SHE DOES NOT APPEAR TO REPOSITION HERSELF MUCH. REDDENED BUTTOCKS & MINH AREA, PREVENTATIVE MEPILEX IN PLACE. LOOSE BM'S NOTED THIS SHIFT, I WOULD HOLD ALL BOWEL CARE. ATTENDS IN PLACE. EXTENSIVE BRUISING ALL EXTREMETIES. SKIN TEAR LEFT UPPER ARM. RA. BENITA ROBLES. ACHS, 166 BS AT BEDTIME. FROM [facility]. MEDS TAKEN WHOLE IN APPLESAUCE. 2 LPM O2 @ PM - PRN.
[2019-03-31 05:21] LABS: BASOPHILS ABSOLUTE AUTO 0.02 K/mm3 (0.00-0.23); BASOPHILS PERCENT AUTO 0 % (0-2); EOSINOPHILS ABSOLUTE AUTO 0.07 K/mm3 (0.00-0.68); EOSINOPHILS PERCENT AUTO 1 % (0-6); Hematocrit 36.3 % (33.0-51.0); Hemoglobin 10.8 g/dL (11.5-16.0); IMMATURE GRAN ABSOLUTE AUTO 0.12 K/mm3 (0.00-0.10); IMMATURE GRAN PERCENT AUTO 1 % (0-1); LYMPHOCYTES ABSOLUTE AUTO 1.49 K/mm3 (0.84-5.20); LYMPHOCYTES PERCENT AUTO 11 % (21-46); MONOCYTES ABSOLUTE AUTO 1.09 K/mm3 (0.16-1.47); MONOCYTES PERCENT AUTO 8 % (4-13); Mean Corpuscular HGB 27.3 pg (26.0-34.0); Mean Corpuscular HGB Conc 29.8 g/dL (31.5-36.5); Mean Corpuscular Volume 92 fL (80-100); Mean Platelet Volume 11.2 fL (9.1-12.4); NEUTROPHILS ABSOLUTE AUTO 10.75 K/mm3 (1.96-9.15); NEUTROPHILS PERCENT AUTO 79 % (41-73); Platelet Count 254 K/mm3 (150-400); RDW Coefficient Variation 15.9 % (11.7-14.2); RDW Standard Deviation 53.4 fL (35.1-46.3); Red Blood Cell Count 3.95 M/mm3 (3.80-5.20); White Blood Cell Count 13.54 K/mm3 (4.00-11.30)
[2019-03-31 05:48] LABS: Bun/Creatinine Ratio 29.3 (12.0-20.0); Calcium, Blood 8.3 mg/dL (8.5-10.1); Creatinine, Blood 1.4 mg/dL (0.40-1.00); Potassium, Blood 3.7 mmol/L (3.5-5.5)
--- NOTE | 2019-03-31 13:47 | NUR ---
Initial palliative care consult: Theresa is a 84 year old with a history or CKD stage 3, chrnoic diastolic hear failure, a-fib, COPD, DM, lmyastheniz gravis, HTN, TIAs, PUC, skin cancer, GI bleed. She was admitted on 03/26/19 for a UTI. She tells this chart writer as I enter the room that she is going home to [facility] today. She is looking forward to sleeping in her own bed and sitting in her recliner. She reports she has lived at [facility] for 4 years and mostly enjoys living there. She states there are a few staff members who make her feel rushed at times and she doesn't like this. She reports she is mostly wc bound and has a walker for transfers. She has good family support. She enjoys the social activities that are available at [facility]. She states she is feeling much better and ready to go home. She has plans for a wc transport back to [place] at 3 pm today. No complaints or requests at this time. Snacking on pears. Call light in pt's reach.
--- NOTE | 2019-03-31 16:34 | NUR ---
DISCHARGED HOME TO [facility] AT 1628 VIA W/C VAN. SHE HAD MULTIPLE SMALL LOOSE BM'S TODAY, 1 SOFT MUSHY STOOL. SHE TRANSFERS WITH 1 ASSIST. CBG'S WNL.HER SKIN IS SO FRAGILE. BUTTOCK CREASE RED. CREAM APPLIED AFTER MINH CARES. NO COMPLAINTS. HAPPY TO BE ON HER WAY HOME.
== END 2019-03-31 16:27 | disposition home or self-care (01) | DRG 689 ==
LOC: ER 17:25 → MEDS 18:56 → ER 21:17 → MEDS 21:18
PROVIDERS: Emergency Medicine; Hospitalist; ADMIT Internal Medicine
DX: N39.0 Urinary tract infection, site not specified (principal); G92 Toxic encephalopathy; N17.9 Acute kidney failure, unspecified; I13.0 Hypertensive heart and chronic kidney disease with heart failure and stage 1 through stage 4 chronic kidney disease, or unspecified chronic kidney disease; I50.32 Chronic diastolic (congestive) heart failure; Z16.30 Resistance to unspecified antimicrobial drugs; E86.0 Dehydration; N18.3 Chronic kidney disease, stage 3 (moderate); E11.22 Type 2 diabetes mellitus with diabetic chronic kidney disease; G70.00 Myasthenia gravis without (acute) exacerbation; K21.9 Gastro-esophageal reflux disease without esophagitis; T36.1X5A Adverse effect of cephalosporins and other beta-lactam antibiotics, initial encounter; B96.5 Pseudomonas (aeruginosa) (mallei) (pseudomallei) as the cause of diseases classified elsewhere; B96.20 Unspecified Escherichia coli [E. coli] as the cause of diseases classified elsewhere; I48.91 Unspecified atrial fibrillation; J44.9 Chronic obstructive pulmonary disease, unspecified; Z86.73 Personal history of transient ischemic attack (TIA), and cerebral infarction without residual deficits; Z66 Do not resuscitate
CPT/HCPCS: 36415; 71045; 80048; 80053; 81001; 82947; 83605; 83735; 83880; 85025; 85027; 87077; 87086; 87186; 94640; 94760; 96365; 99284-25; A9270; J0713; J1650; J2543; J7030; J7512

== ENCOUNTER 2019-04-07 05:21 | Inpatient (IN) | payer OTHER ==
[~2019-04-07] VITALS: Ht 165.1 cm; Wt 82.4 kg
[~2019-04-07 05:21] MED LIST changes: +LISI5 PO
[2019-04-07 07:05] LABS: Source, Urine Catheter
[2019-04-07 07:08] LABS: BASOPHILS ABSOLUTE AUTO 0.05 K/mm3 (0.00-0.23); BASOPHILS PERCENT AUTO 0 % (0-2); EOSINOPHILS ABSOLUTE AUTO 0.23 K/mm3 (0.00-0.68); EOSINOPHILS PERCENT AUTO 1 % (0-6); Hemoglobin 11.5 g/dL (11.5-16.0); IMMATURE GRAN ABSOLUTE AUTO 0.17 K/mm3 (0.00-0.10); IMMATURE GRAN PERCENT AUTO 1 % (0-1); LYMPHOCYTES ABSOLUTE AUTO 2.35 K/mm3 (0.84-5.20); LYMPHOCYTES PERCENT AUTO 10 % (21-46); MONOCYTES ABSOLUTE AUTO 1.88 K/mm3 (0.16-1.47); MONOCYTES PERCENT AUTO 8 % (4-13); Mean Corpuscular HGB 27.5 pg (26.0-34.0); Mean Corpuscular HGB Conc 29.5 g/dL (31.5-36.5); Mean Corpuscular Volume 93 fL (80-100); Mean Platelet Volume 11.7 fL (9.1-12.4); NEUTROPHILS ABSOLUTE AUTO 18.85 K/mm3 (1.96-9.15); NEUTROPHILS PERCENT AUTO 80 % (41-73); Platelet Count 276 K/mm3 (150-400); RDW Coefficient Variation 15.8 % (11.7-14.2); RDW Standard Deviation 53.8 fL (35.1-46.3); Red Blood Cell Count 4.18 M/mm3 (3.80-5.20); White Blood Cell Count 23.53 K/mm3 (4.00-11.30)
[2019-04-07 07:09] LABS: Appearance, Urine Turbid (Clear); Bilirubin, Urine Neg (Neg); Blood, Urine 4+ (Neg); Color, Urine Yellow (P-Yellow); Glucose Qualitative, Urine Neg (Neg); Ketones, Urine Neg (Neg); Leukocyte Esterase, Urine 3+ (Neg); Nitrite, Urine Neg (Neg); Protein, Urine 3+ (Neg); Urobilinogen, Urine NORM (Normal)
[2019-04-07 07:15] LABS: White Blood Cells, Urine TNTC /hpf (0-5)
[2019-04-07 07:20] LABS: Bacteria Mod /hpf; Red Blood Cells, Urine 0-2 /hpf (0-2); Squamous Epithelial Cells Few /hpf (Few)
[2019-04-07 07:27] LABS: Alanine Aminotransfer (ALT/SGP 24 U/L (12-78); Albumin, Blood 2.5 g/dL (3.4-5.0); Albumin/Globulin Ratio 0.7 (0.8-1.8); Alk Phos 51 U/L (50-136); Anion Gap 5 mmol/L (6-16); Aspartate Aminotrans (AST/SGOT 24 U/L (12-37); Bilirubin, Total 0.4 mg/dL (0.1-1.0); Blood Urea Nitrogen 47 mg/dL (8-24); Bun/Creatinine Ratio 27.5 (12.0-20.0); CO2, Blood 34 mmol/L (21-32); Chloride, Blood 102 mmol/L (98-108); Creatinine, Blood 1.71 mg/dL (0.40-1.00); Globulin, Blood 3.5 g/dL (2.2-4.0); Glomerular Filtration Rate 30 (60-); Glucose, Blood 99 mg/dL (70-99); Potassium, Blood 4.2 mmol/L (3.5-5.5); Sodium, Blood 141 mmol/L (136-145); Troponin I <0.015 ng/mL (0.000-0.040)
--- NOTE | 2019-04-07 11:15 | NUR ---
ADMIT ASSESSMENT- PT ADMITTED FROM ER TO ICU ON [facility]. PT AWAKE, ALERT, COOPERATIVE. ANSWERS QUESTIONS APPROPRIATELY. ON CDIFF PRECAUTIONS. NSR, BP STABLE. IV BOLUS INFUSED NOW TO TOTAL 2400 CC FLUID BOLUS. RESPIRATIONS UNLABORED, SOME WHEEZES WITH MOVEMENT. SKIN DRY, FRAGILE. LARGE BRUISING LEFT UPPER ARM, DRESSING RIGHT UPPER ARM, COCCYX DRY, REDDENED, FLAKY. IV LEFT AC DI. SURYA CANTU HERE UPDATED. IV TO 125 AFTER BOLUS. ABLE TO TAKE PILLS WITH APPLESAUCE. APPROPRIATE.
[2019-04-07 11:31] LABS: Influenza A Negative (NEGATIVE); Influenza B Negative (NEGATIVE)
--- NOTE | 2019-04-07 12:24 | NUR ---
LABS DRAWN. POOR PERIPHERAL ACCESS, SKIN FRAGILE. RIGHT ARM DRESSING REMOVED, LARGE WEEPING OPEN AREA-SEE PHOTO, XEROFORM GAUZE APPLIED. BLOOD PRESSURE VIA RIGHT WRIST. SBP LOW-NOW IMPROVED. REPOSITIONED. TALKATIVE
--- NOTE | 2019-04-07 13:09 | NUR ---
POLST ON CHART
--- NOTE | 2019-04-07 16:38 | NUR ---
PT STATES FEELING BETTER. BP IMPROVED. INCONTINENT, PAD CHANGED. REFUSES JAYDE HOSE. DECREASED OXYGEN TO 1 L/NC.
[2019-04-07] MEDS ORDERED: ALBU2.5V5 INH (16:51)
--- NOTE | 2019-04-07 18:28 | NUR ---
PT WITH STABLE VS. ARMS VERY SORE TO TOUCH, ECCHYMOSIS LEFT UPPER ARM, DRESSING/ABRASION RIGHT UPPER ARM, SKIN VERY FRAGILE. BP DECREASED TO EVERY ONE HOUR. AWAKE, ALERT, COOPERATIVE. NSR. REPOSITIONED. NO BM. UPDATE TO SSINGH-ORDERS FOR PCU
--- NOTE | 2019-04-07 19:00 | NUR ---
ASSUME CARE: REPORT RECIEVED FROM MILO OFF GOING RN. MONITOR INTACT SHOWING SINUS RHYTHM. HEART RATE 70'S-80'S. LUNG SOUNDS DECREASED WITH OCC WHEEZE IN BESES. RESPIRATIONS REGULAR AND EASY AT REST WITH O2 IN PLACE AT 1L/MIN. SPO2 93-95% ABDOMEN SOFT WITH BOWEEL SOUNDS FOUR QUADS. ATTENDS IN PLACE SECONDARY TO INCONTINENCE. PAS TO LOWER EXTREMITIES. SKIN FRAGILE SEE PHOTOS. DRESSING INTACT TO UPPER EXTREMITIES AND COCCYX. ASSIST WITH REPOSITIONING CONTINUE TO MONITOR AND REPORT CHANGE IN PATIENT CONDITION.
[2019-04-08 03:56] LABS: BASOPHILS ABSOLUTE AUTO 0.02 K/mm3 (0.00-0.23); BASOPHILS PERCENT AUTO 0 % (0-2); EOSINOPHILS ABSOLUTE AUTO 0.02 K/mm3 (0.00-0.68); EOSINOPHILS PERCENT AUTO 0 % (0-6); Hematocrit 29.9 % (33.0-51.0); Hemoglobin 8.9 g/dL (11.5-16.0); IMMATURE GRAN ABSOLUTE AUTO 0.08 K/mm3 (0.00-0.10); IMMATURE GRAN PERCENT AUTO 0 % (0-1); LYMPHOCYTES ABSOLUTE AUTO 1.19 K/mm3 (0.84-5.20); LYMPHOCYTES PERCENT AUTO 6 % (21-46); MONOCYTES ABSOLUTE AUTO 1.15 K/mm3 (0.16-1.47); MONOCYTES PERCENT AUTO 6 % (4-13); Mean Corpuscular HGB 27.7 pg (26.0-34.0); Mean Corpuscular HGB Conc 29.8 g/dL (31.5-36.5); Mean Corpuscular Volume 93 fL (80-100); Mean Platelet Volume 11.9 fL (9.1-12.4); NEUTROPHILS ABSOLUTE AUTO 15.99 K/mm3 (1.96-9.15); NEUTROPHILS PERCENT AUTO 87 % (41-73); Platelet Count 206 K/mm3 (150-400); RDW Coefficient Variation 15.8 % (11.7-14.2); RDW Standard Deviation 53.8 fL (35.1-46.3); Red Blood Cell Count 3.21 M/mm3 (3.80-5.20); White Blood Cell Count 18.45 K/mm3 (4.00-11.30)
[2019-04-08 04:14] LABS: Albumin, Blood 1.9 g/dL (3.4-5.0); Albumin/Globulin Ratio 0.7 (0.8-1.8); Bilirubin, Total 0.4 mg/dL (0.1-1.0); Bun/Creatinine Ratio 27.9 (12.0-20.0); Calcium, Blood 7.7 mg/dL (8.5-10.1); Creatinine, Blood 1.29 mg/dL (0.40-1.00); Globulin, Blood 2.6 g/dL (2.2-4.0); Potassium, Blood 4.3 mmol/L (3.5-5.5); Total Protein, Blood 4.5 g/dL (6.4-8.2)
--- NOTE | 2019-04-08 05:49 | NUR ---
SHIFT SUMMARY : REST QUIETLY WHEN UNDISTURBED. MONITOR INTACT SHOWING SINUS RHYTHM HEART RATE 70'S. LUNG SOUNDS CLEAR UPPER LOBES WITH DECREASED SOUNDS IN THE BASES WITH OCC WHEEZES IN THE BASES SPO2 94-97% ABDOMEN SOFT WITH BOWEL SOUNDS FOUR QUADS. ATTENDS IN PLACE SECONDARY TO INCONTINENCE. DRESSING INTACT TO COCCYX SEE PHOTO FOR WOUNDS AND DRESSINGS ON UPPER EXTREMITIES. CONTINUE TO MONITOR AND REPORT CHANGE IN PATIENT CONDITION. SPECIMEN SENT TO LAB GI PANEL.
[2019-04-08 07:50] LABS: Adenovirus F 40/41 Not Detected (NOT DETECT); Astrovirus Not Detected (NOT DETECT); Campylobacter Sp Not Detected (NOT DETECT); Cryptosporidium Not Detected (NOT DETECT); Cyclospora Cayetanensis Not Detected (NOT DETECT); E. Coli O157 Not Detected (NOT DETECT); Entamoeba Histolytica Not Detected (NOT DETECT); Enteroaggregative E. coli-EAEC Not Detected (NOT DETECT); Enteropathogenic E. coli-EPEC Not Detected (NOT DETECT); Enterotoxigenic E. coli-ETEC Not Detected (NOT DETECT); Giardia Lamblia Not Detected (NOT DETECT); Norovirus GI/GII Not Detected (NOT DETECT); Plesiomonas Shigelloides Not Detected (NOT DETECT); Rotavirus A Not Detected (NOT DETECT); Salmonella Sp Not Detected (NOT DETECT); Sapovirus Not Detected (NOT DETECT); Shiga Toxin-prod E. coli-STEC Not Detected (NOT DETECT); Shigella/Enteroin E. coli-EIEC Not Detected (NOT DETECT); Vibrio Cholerae Not Detected (NOT DETECT); Vibrio Sp Not Detected (NOT DETECT); Yersinia Enterocolitica Not Detected (NOT DETECT)
--- NOTE | 2019-04-08 09:00 | NUR ---
INITIAL ASSESSMENT REPORT RECEIVED, CARE ASSUMED AT 0700 FROM GIACOMO LIVINGSTON. PT INITIALLY ASLEEP ON ROUNDING BUT AROUSES EASILY. PT ALERT AND ORIENTED. ARTICULATES NEEDS INCLUDING NEED FOR BRIEF CHANGE AND FOR FOOD. PT ASSISTS WITH TURNS FOR BRIEF CHANGE. SHE IS TALKATIVE. VITALS STABLE. PT ON 2 LPM NASAL CANNULA. TAKES MEDICATIONS IN APPLESAUCE WITHOUT DIFFICULTY. EATS BREAKFAST WITH SETUP ASSIST ONLY. AGREES TO CALL FOR NEEDS.
--- NOTE | 2019-04-08 11:16 | NUR ---
TRANSFER PT TRANSFERRED VIA BED TO ROOM 304 BY MILIND VITALE. [address]
--- NOTE | 2019-04-08 11:35 | NUR ---
PT ARRIVED TO THE UNIT VIA BED. PT ORIENTATED TO ROOM. CALL LIGHT WITH IN REACH DENIES ANY NEEDS AT THIS TIME
--- NOTE | 2019-04-08 11:37 | NUR ---
TRANSFER/REPORT ORDER FROM DR. TREVIZO FOR PT TO BE MEDICAL FLOOR STATUS WITH NO TELEMETRY. NOTIFIED BY BAGGAGE AGENT SUPERVISOR THAT PT TO GO TO ROOM 304. REPORT GIVEN TO GIACOOM SALAZAR TO ASSUME CARE ON TRANSFER.
--- NOTE | 2019-04-08 17:32 | NUR ---
SHIFT SUMMARY- PT TRANSFERED THIS MORNING FROM ICU. PT IS A/O, PLESANT AND COOPERATIVE. PT EATING AND DRINKING WELL. APPLIED DRESSING TO WOUND ON HER BOTTOM. PT SKIN IS THIN AND FRAIN. PT DENIES PAIN AT THIS TIME.
[2019-04-09 04:44] LABS: Hematocrit 32.9 % (33.0-51.0); Hemoglobin 9.6 g/dL (11.5-16.0); Mean Corpuscular HGB 27.3 pg (26.0-34.0); Mean Corpuscular HGB Conc 29.2 g/dL (31.5-36.5); Mean Corpuscular Volume 94 fL (80-100); Mean Platelet Volume 11.9 fL (9.1-12.4); Platelet Count 205 K/mm3 (150-400); RDW Coefficient Variation 15.6 % (11.7-14.2); RDW Standard Deviation 53.3 fL (35.1-46.3); Red Blood Cell Count 3.52 M/mm3 (3.80-5.20); White Blood Cell Count 16.26 K/mm3 (4.00-11.30)
[2019-04-09 05:07] LABS: Bun/Creatinine Ratio 31.8 (12.0-20.0); Calcium, Blood 8.5 mg/dL (8.5-10.1); Creatinine, Blood 1.1 mg/dL (0.40-1.00); Potassium, Blood 4.5 mmol/L (3.5-5.5)
--- NOTE | 2019-04-09 06:15 | NUR ---
Elderly Female PT with severe sepsis transferred from ICU yesterday. PT has myasthenia gravis, delusions, and has several prolonged hospitalizations in 2019. PT alert with some verbalizations of delusions. Pleasant delusions reported. PT in antibiotics to treat sepsis. Skin fragile and ecchymotic on anticouagulants. PT is on oxygen 2 l nc baseline 2 l nc at HS. PT from [facility], dependent for adls and bed mobility. CO rt shoulder pain chronic and headache relieved with tylenol 650 mg. Meds whole in applesauce, aspiration risk. Immobile baseline. Incontinent of bowel and bladder. On antibotic oral vanco to treat CDIFF.
--- NOTE | 2019-04-09 15:32 | NUR ---
SHIFT SUMMARY PT IS ALERT TO SELF, PT HAS BEEN CONFUSSED ABOUT HER SITUATION THIS SHIFT. PT HAS ALSO HAD HALUCINATIONS AND AUDIO DISTRUNBANCES THIS SHIFT. THE PT IA AWARE OF THE DISTURBANCES AND EASILY REDIRECTED. THE PT HAS DENIED PAIN DURING THIS SHIFT. SHE HAS HAD MULTIPLE LOOSE STOOLS AND HAS AN ACTIVE C-DIFF INFECTION. PT TOLORATED A BED TO CHAIR TRANSFER WELL. PT HAS A PREVENTATIVE DRESSING ON THE COCCYX THAT IS REDDENED. PT HAS BED ALARM AND CALL LIGHT WITHIN REACH. PT IS STABLE AT THIS TIME AND WILL COUNTINUE TO MONITOR UNTIL THE END OF SHIFT, WILL REPORT TO ONCOMING SHIFT.
--- NOTE | 2019-04-09 16:07 | NUR ---
Initial spiritual care note: Mrs. Chang is pleasant, talkative, and confused. She beleives she is in a barn and is working on a building project. She chatted happily with me and denied pain/fear/concerns. Prayer provided at bedside. I will remain available.
--- NOTE | 2019-04-09 16:40 | NUR ---
DR JOHNSON PT HAS ELEVATED BP, NOTIFIED PROVIDER, NEW ORDER BEING PLACED BY PROVIDER.
--- NOTE | 2019-04-09 19:14 | NUR ---
PT VERY CONFUSED, HALLUCINATING, CALLING OUT, AND EXITING BED SEVERAL TIMES. PT VERY ANXIOUS WHEN ATTEMPTING TO REORIENT AND DOES NOT MAKE MUCH SENSE. BED ALARM ON FOR SAFETY. PT RETURNED TO BED AND IS CURRENTLY IN ROOM CONVERSATING WITH A PERSON THAT IS NOT THERE.
--- NOTE | 2019-04-09 19:57 | NUR ---
PT TRANSFERRED TO [facility] IN SPECIAL CARE UNIT FOR SAFETY. REPORT GIVEN TO GIACOMO CHAU. PT BELONGINGS TRANSFERRED WITH PT.
--- NOTE | 2019-04-10 04:13 | NUR ---
PLEATER HAND SUMMARY REPORT Patient awake all night hallucinating talking to various people she thought were in her room. intermittantly aware of her surrounding. patient is unable to follow commands as she is unable to focus on the task at hand. Skin very fragile, especially on arms. Red translucent Jelly like pockets of fluid mostly on the underside of arms slowly seeping serous fluid. incont of very large amounts of urine and one large liquid stool. skin surrounding rectum very red and raw. maryann barrier cream mixed with silicone applied after each cleansing. nystatin applied to anterior josefina area for slight reddness.
[2019-04-10 05:16] LABS: Hematocrit 37.7 % (33.0-51.0); Hemoglobin 11.4 g/dL (11.5-16.0); Mean Corpuscular HGB 27.1 pg (26.0-34.0); Mean Corpuscular HGB Conc 30.2 g/dL (31.5-36.5); Mean Platelet Volume 12.1 fL (9.1-12.4); Platelet Count 263 K/mm3 (150-400); RDW Coefficient Variation 15.7 % (11.7-14.2); RDW Standard Deviation 51.9 fL (35.1-46.3); White Blood Cell Count 18.35 K/mm3 (4.00-11.30)
[2019-04-10 05:28] LABS: Mean Corpuscular Volume 90 fL (80-100)
[2019-04-10 05:39] LABS: Creatinine, Blood 1.26 mg/dL (0.40-1.00); Potassium, Blood 3.5 mmol/L (3.5-5.5)
--- NOTE | 2019-04-10 07:00 | NUR ---
ASSUMED CARE OF PT- REPORT RECIEVED FROM NIGHT GIACOMO CHAU. PER REPORT PT HALLUCINATED T/O THE NIGHT; TALKING TO PEOPLE THAT WERE NOT IN THE ROOM. PT IS ON THE CAMERAS FOR SAFETY MONITORING. PT HAS HAD MULTIPLE FALLS AT HOME AND IS POSSITIVE FOR UTI AND CONFUSION. PT CURRENTLY HALLUCINATING ABOUT [employer] AND VERY CONCERNED ABOUT HER FURNITURE THAT IS NOT IN HER ROOM. FREQUENT REORIENTATION DOES NOT WORK.
--- NOTE | 2019-04-10 09:16 | NUR ---
SPOKE TO DR TREVIZO ON PT ROUNDING. IV LASIX DC'D CREATININE HAS GONE UP. NEW ORDER PLACED FOR HCTZ TO HELP WITH THE PT HTN HOLD FOR SBP LESS THAN 110.
--- NOTE | 2019-04-10 18:44 | NUR ---
SHIFT SUMMARY- PT ALERT AND ORIENTED TO SELF. PT STILL COMPLETELY CONFUSED AND HALLUCINATING. PT HAS TALKED CONSTANTLY T/O THE DAY. PT OFTEN SOUNDS LIKE SHE IS TALKING ON THE PHONE. PT GETS UPSET IF STAFF TRY TO CHANGE HER BEFORE HER COMPANY LEAVES. STAFF HAVE TO ASSURE HER THAT HER COMPANY ALREADY STEPPED OUT SO SHE CAN BE CHANGED. PT HAS REMAINED A Q2 TURN.
--- NOTE | 2019-04-11 02:47 | NUR ---
PATIENT WAS FOUND TO HAVE AN HEMATOMA ON HER RW. CALLED MANJEET EVERETT RN TO COME LOOK AT IT IT WAS PAINFUL TO PATIENT. APPLIED LIGHT COMPRESSION TO THE SITE AND WILL MAKE LAB AWARE OF NEED FOR PRECAUTIONS WITH LAB DRAWS.
[2019-04-11 05:38] LABS: Hematocrit 34.2 % (33.0-51.0); Hemoglobin 10.4 g/dL (11.5-16.0); Mean Corpuscular HGB 27.5 pg (26.0-34.0); Mean Corpuscular HGB Conc 30.4 g/dL (31.5-36.5); Mean Corpuscular Volume 91 fL (80-100); Mean Platelet Volume 12.1 fL (9.1-12.4); Platelet Count 240 K/mm3 (150-400); RDW Coefficient Variation 15.9 % (11.7-14.2); RDW Standard Deviation 51.6 fL (35.1-46.3); Red Blood Cell Count 3.78 M/mm3 (3.80-5.20); White Blood Cell Count 11.38 K/mm3 (4.00-11.30)
[2019-04-11 05:55] LABS: Bun/Creatinine Ratio 21.7 (12.0-20.0); Calcium, Blood 8.4 mg/dL (8.5-10.1); Creatinine, Blood 1.52 mg/dL (0.40-1.00); Magnesium, Blood 2.4 mg/dL (1.6-2.4); Potassium, Blood 3.4 mmol/L (3.5-5.5)
--- NOTE | 2019-04-11 06:33 | NUR ---
WAS ABLE TO GET PATIENT DENTURES OUT AND THEY ARE IN A CUP WITH FIZZY TABLET ON THE SHELF OVER THE SINK. RE-DRESSED THE TEAR ON HER JOSE. ALSO SHE SCRATCHED A SCAB ON HER CHEST AND WAS BLEEDING FROM THAT. APPLIED GAUZE WITH MINIMAL TAPE TO COVER IT. PLEASANT AND COOPERATIVE WHEN YOU CAN GET A WORD IN! SHE DID FINALLY SLEEP AND IS CURRENTLY RESTING QUIETLY. BED LOW AND ALARMED, CALL TOSCANO WITHIN REACH.
--- NOTE | 2019-04-11 14:42 | NUR ---
SPOKE TO DR TREVIZO- PT USES NYSTATIN SWISH AND SWALLOW AT HOME WHITE PATCHES NOTED IN HER MOUTH, RT SUGGESTED THRUSH STIL PRESENT. REIEVED ORDER FOR SWISH AND SWALLOW. REMOVED PT DENTURES AND CLEANES THEM THOROUGHLY WITH A TOOTHBRUSH AND PLACED IN A CUP WITH COOL WATER AND A DENTURE TAB. WILL PERFORM ORAL CARE BEFORE PLACING DENTURES BACK IN PT MOUTH.
--- NOTE | 2019-04-11 19:35 | NUR ---
SHIFT SUMMARY- PT HAS HAD AN IMPROVEMENT COGNITIVELY. PT MORE ALERT NO LONGER HALLUCINATING. NEW ORDER FOR SWISH AND SWALLOW. PT HAS HAD EXTENSIVE ORAL CARE DONE AND DENTURES ARE REMOVED PRIOR TO SWISH AND SWALLOW BRUSHED AND PLACED TO SOAK WITH A DENTURE TAB. PT STILL HAS PO AND IV ABX. PT HAD ONE LARGE DARK STOOL TODAY WHILE STAFF WERE IN THE ROOM, PT REQUESTED THE BED WAGNER. SHE MAY BE MORE CONTINENT OF BOWELS TONIGHT. AFTER DINNER DENTURES WERE REMOVED AGAIN, EASIER NOW THAT PT IS AWARE OF HER SITUATION. PT IN BED SLEEPING NOW.
[2019-04-12 05:36] LABS: Bun/Creatinine Ratio 32.8 (12.0-20.0); Calcium, Blood 8.7 mg/dL (8.5-10.1); Creatinine, Blood 1.25 mg/dL (0.40-1.00); Potassium, Blood 3.4 mmol/L (3.5-5.5)
--- NOTE | 2019-04-12 06:43 | NUR ---
PATIENT IS MUCH IMPROVED THIS SHIFT. SHE IS AWARE WHEN SHE HAS VOIDED AND CALLS APPROPRIATELY FOR LINEN CHANGE. ORIENTED AND ALERT AND COOPERATIVE WITH CARE. HER FRAGILE TISSUE PAPER SKIN REMAINS IN JUST POOR CONDITION. SHE RECEIVED TYLENOL FOR GENERAL ACHES AND PAINS AND SLEPT WELL. BED LOW AND ALARMED. CALL EVERTON QUEZADA
--- NOTE | 2019-04-12 07:15 | NUR ---
ASSUMED CARE OF PT- PT ALERT AND ORIENTED THRUSH SEEMS IMPTOVED WITH THE INCREASE IN ORAL CARE FROM YESTERDAY WILL CONTINUE THE SAME T/O THE DAY TODAY. PT STATES HER MOUTH FEELS BETTER TODAY. SWISH AND SWALLOW QID. PT STATES SHE HAS SOME MILD BODY ACHES, WAS MEDICATED IN THE NIGHT WITH TYLENOL. WILL CTM. PT HAS HER CALL LIGHT AND WILL CALL WHEN SHE IS WET, (COGNITIVE IMPROVEMENT).
--- NOTE | 2019-04-12 16:28 | NUR ---
RECIEVED A CALL FROM [facility] ABOUT PT POSSIBLE DC DATE AND TIME; WELL PT STATUS. GAVE UPDATE. THEY ARE AWARE PT CAN POSSIBLY DISCHARGE EARLY TOMORROW. PER DR TREVIZO YESTERDAY.
--- NOTE | 2019-04-12 17:41 | NUR ---
SHIFT SUMMARY- PT BG WAS ELEVATED THIS EVENING HOWEVER SHE HAD JUST HAD A SNACK PRIOR TO THE POC BG TEST. PT BANDAGE ON THE RIGHT UPPER ARM WAS CHANGED THIS EVENING AND IS C/D/I AT THIS TIME PT HAD TWO BM'S TODAY, THE LAST OF WHICH WAS VERY LOOSE AND LIGHT YELLOW WITH JELLY LIKE CONSISTENCY IN SOME PARTS. PT CURRENTLY IN ISO FOR POSSITIVE FOR C-DIFF. PT ON ORAL VANCO. PT HAS HAD ORAL CARE SEVERAL TIMES T/O THE DAY AND ONLY ONE SMALL WHITE PATCH IS NOTICEABLE AT THIS TIME. PT HAS HAD HER TEETH PUT IN FOR MEALS AND REMOVED AFTER WITH ORAL CARE AFTER MEALS. PT STATED THE PAIN IN HER MOUTH SEEMS TO BE LESS THAN IT WAS AND SHE DOES'T THINK IT FEELS ROUGH IT DID BEFORE. PT CURRENTLY SITTING UP IN BED CALL [facility] IN REACH. POSSIBLE DC BACK TO [facility] EARLY SATURDAY PER
--- NOTE | 2019-04-13 04:21 | NUR ---
SHIFT SUMMARY PT HAD NO ISSUES NOTED. PT HAS SLEPT WELL T/O SHIFT. PT CURRENTLY SLEEPING AND BREATHING EASY. CALL LIGHT IN REACH.
[2019-04-13] MEDS ORDERED: VANCOCIN HCL125 MG PO (09:09)
[2019-04-13] MEDS ORDERED: Florastor250 MG PO (09:11)
[2019-04-13] MEDS ORDERED: TORSE20 (09:27)
[2019-04-13] MEDS ORDERED: AMLO10 PO (09:34)
--- NOTE | 2019-04-13 14:51 | NUR ---
PATIENT D/C'D BACK TO [facility] VIA W/C TRANSPORT. REPORT CALLED TO NICOLE NURSE AT [place]. D/C PACKET AND FACESHEET SENT WITH CAR SUPPLIER. PATIENT DENIES ANY FURTHER QUESTIONS OR CONCERNS.
== END 2019-04-13 14:44 | disposition home or self-care (01) | DRG 871 ==
LOC: ER 05:21 → ICUW 09:41 → ICUE 10:40 → MEDS 04-08 11:12 → ENPENDDIS 04-13 08:03 → MEDS 04-13 14:44
PROVIDERS: Emergency Medicine; Internal Medicine; Nurse Practitioner Acute Care; ADMIT Internal Medicine
DX: A41.4 Sepsis due to anaerobes (principal); J96.01 Acute respiratory failure with hypoxia; G92 Toxic encephalopathy; A04.72 Enterocolitis due to Clostridium difficile, not specified as recurrent; N39.0 Urinary tract infection, site not specified; N17.9 Acute kidney failure, unspecified; J98.11 Atelectasis; I48.20 Chronic atrial fibrillation, unspecified; I13.0 Hypertensive heart and chronic kidney disease with heart failure and stage 1 through stage 4 chronic kidney disease, or unspecified chronic kidney disease; I50.32 Chronic diastolic (congestive) heart failure; R65.20 Severe sepsis without septic shock; A41.52 Sepsis due to Pseudomonas; T50.905A Adverse effect of unspecified drugs, medicaments and biological substances, initial encounter; G70.00 Myasthenia gravis without (acute) exacerbation; J44.9 Chronic obstructive pulmonary disease, unspecified; E11.22 Type 2 diabetes mellitus with diabetic chronic kidney disease; N18.3 Chronic kidney disease, stage 3 (moderate); T38.0X5A Adverse effect of glucocorticoids and synthetic analogues, initial encounter; G47.33 Obstructive sleep apnea (adult) (pediatric); E87.70 Fluid overload, unspecified; Z66 Do not resuscitate; Z79.01 Long term (current) use of anticoagulants; Z79.51 Long term (current) use of inhaled steroids; Z79.52 Long term (current) use of systemic steroids; Z79.899 Other long term (current) drug therapy; Z88.8 Allergy status to other drugs, medicaments and biological substances; Z88.1 Allergy status to other antibiotic agents; Z88.5 Allergy status to narcotic agent; Z99.81 Dependence on supplemental oxygen; Z87.11 Personal history of peptic ulcer disease; Z86.718 Personal history of other venous thrombosis and embolism; Z86.73 Personal history of transient ischemic attack (TIA), and cerebral infarction without residual deficits; Z85.828 Personal history of other malignant neoplasm of skin
CPT/HCPCS: 0097U; 36415; 71045; 80048; 80053; 81001; 82550; 82947; 83605; 83735; 83880; 84145; 84484; 85025; 85027; 87040; 87077; 87086; 87186; 87324; 87449; 87804; 93005; 93010; 94640; 94760; 96361; 96365; 96375; 99285-25; A9270; J0360; J1940; J2405; J2543; J2920; J2930; J3370; J7030; J7050; J7120; J7512; P9612

== ENCOUNTER 2019-05-31 19:51 | Inpatient (IN) | payer OTHER ==
[~2019-05-31] VITALS: Ht 162.6 cm; Wt 79.7 kg
[~2019-05-31 19:51] MED LIST changes: +ALBU2.5V5 INH; +TORSE20; +VANCOCIN HCL125 MG PO
[2019-05-31 20:20] LABS: BASOPHILS ABSOLUTE AUTO 0.02 K/mm3 (0.00-0.23); BASOPHILS PERCENT AUTO 0 % (0-2); EOSINOPHILS PERCENT AUTO 0 % (0-6); Hematocrit 34.3 % (33.0-51.0); IMMATURE GRAN ABSOLUTE AUTO 0.12 K/mm3 (0.00-0.10); IMMATURE GRAN PERCENT AUTO 1 % (0-1); LYMPHOCYTES ABSOLUTE AUTO 5.09 K/mm3 (0.84-5.20); LYMPHOCYTES PERCENT AUTO 27 % (21-46); MONOCYTES ABSOLUTE AUTO 1.28 K/mm3 (0.16-1.47); MONOCYTES PERCENT AUTO 7 % (4-13); Mean Corpuscular HGB 24.8 pg (26.0-34.0); Mean Corpuscular HGB Conc 29.2 g/dL (31.5-36.5); Mean Corpuscular Volume 85 fL (80-100); NEUTROPHILS ABSOLUTE AUTO 12.19 K/mm3 (1.96-9.15); NEUTROPHILS PERCENT AUTO 65 % (41-73); Platelet Count 317 K/mm3 (150-400); RDW Coefficient Variation 16.1 % (11.7-14.2); RDW Standard Deviation 49.9 fL (35.1-46.3); Red Blood Cell Count 4.04 M/mm3 (3.80-5.20)
[2019-05-31 20:33] LABS: Alanine Aminotransfer (ALT/SGP 22 U/L (12-78); Albumin, Blood 2.6 g/dL (3.4-5.0); Albumin/Globulin Ratio 0.8 (0.8-1.8); Alk Phos 46 U/L (50-136); Anion Gap 9 mmol/L (6-16); Aspartate Aminotrans (AST/SGOT 22 U/L (12-37); Bilirubin, Total 0.5 mg/dL (0.1-1.0); Blood Urea Nitrogen 27 mg/dL (8-24); Bun/Creatinine Ratio 17.1 (12.0-20.0); CO2, Blood 30 mmol/L (21-32); Calcium, Blood 8.3 mg/dL (8.5-10.1); Chloride, Blood 102 mmol/L (98-108); Creatinine, Blood 1.58 mg/dL (0.40-1.00); Globulin, Blood 3.3 g/dL (2.2-4.0); Glomerular Filtration Rate 33 (60-); Glucose, Blood 190 mg/dL (70-99); Potassium, Blood 4.5 mmol/L (3.5-5.5); Sodium, Blood 141 mmol/L (136-145); Total Protein, Blood 5.9 g/dL (6.4-8.2)
[2019-05-31 20:35] LABS: International Normalized Ratio 1.12; Prothrombin Time Results 11.9 Sec (9.7-11.5)
--- NOTE | 2019-05-31 23:35 | NUR ---
05/31/19 2335 Abi Deras PT ON SCHEDULED ANTIBIOTICS
--- NOTE | 2019-06-01 00:24 | NUR ---
PACU RECOVERY PT ARRIVES TO ICU 16 AT 0005 VIA GURNEY. PT ON NON REBREATHER WITH 10L O2. PT AROUSES TO VOICE EASILY. PT FOLLOWING COMMANDS APPROPRIATELY. PT DENIES PAIN OR DISCOMFORT AT THIS TIME. PT WITH WOUND VAC, EXTERNAL FIXATION, AND SOFT DRESSINGS TO LEFT ANKLE IN PLACE C/D/I. SENSATION TO DISTAL EXTREMITIES INTACT. VITAL SIGNS STABLE. WILL CONTINUE TO MONITOR.
[2019-06-01] MEDS ORDERED: FLUT1DIS5 INH (01:56)
--- NOTE | 2019-06-01 02:04 | NUR ---
PT ARRIVED TO ROOM VIA GURNEY FROM PACU S/P LEFT ANKLE I&D, EXTERNAL FIXATOR AND WOUNC VAC WITH LEFT POSTERIOR SPLINT. PT A/O, DENIES ANY PAIN BUT DOES HAVE SOME NAUSEA. VSS, ON 2L NC WHICH IS BASELINE FRO PT, LEFT ANKLE ELEVATED ON PILLOW ABLE TO WIGGLE TOES, BRISK CAP REFIL. WV IN PLACE DRAINING SS FLUID, ALSO NOTED SOME SHADOWING ON LEFT ANKLE DRESSING. PT HAS MULTIPLE SKIN TEARS AND COCCYX PRESSURE WOUND-SEE PHOTOS. WOUND CARE DONE AND DRESSED SKIN TEARS. PT SATURATED IN ATTENDS-MINH CARE DONE AND PLACED NEW ATTENDS. IVF STARTED, ZOFRAN GIVEN. PT HAS HX OF CDIFF, WAS GIVEN TREATMENT REGIMEN OF ORAL VANCO LAST VISIT. PT HAS BEEN GIVEN MIRALAX DAILY AT [facility]. HAS NOT BEEN PLACED IN ISO PRECAUTIONS. PT DID NOT COME TO ROOM WITH DENTURES. CALLED PACU (icu), THEY STATED DID NOT COME TO RECOVERY WITH DENTURES. ER STATED PT DID NOT ARRIVE TO THE HOSPITAL WITH DENTURES. CALLED [facility] THEY STATED THAT THEY COULD NOT FIND THEM IN HER ROOM. DID NOTIFY CLINIQUE COUNTER MANAGER.
--- NOTE | 2019-06-01 02:53 | NUR ---
DNR BAND PLACED ON LEFT WRIST, VERIFIED WITH ROLDAN GOODEN.
[2019-06-01 04:39] LABS: BASOPHILS ABSOLUTE AUTO 0.04 K/mm3 (0.00-0.23); BASOPHILS PERCENT AUTO 0 % (0-2); EOSINOPHILS PERCENT AUTO 0 % (0-6); Hematocrit 30.6 % (33.0-51.0); Hemoglobin 8.6 g/dL (11.5-16.0); IMMATURE GRAN PERCENT AUTO 1 % (0-1); LYMPHOCYTES PERCENT AUTO 3 % (21-46); MONOCYTES ABSOLUTE AUTO 1.69 K/mm3 (0.16-1.47); MONOCYTES PERCENT AUTO 6 % (4-13); Mean Corpuscular HGB 24.3 pg (26.0-34.0); Mean Corpuscular HGB Conc 28.1 g/dL (31.5-36.5); Mean Corpuscular Volume 86 fL (80-100); Mean Platelet Volume 11.6 fL (9.1-12.4); NEUTROPHILS ABSOLUTE AUTO 25.49 K/mm3 (1.96-9.15); NEUTROPHILS PERCENT AUTO 90 % (41-73); Platelet Count 241 K/mm3 (150-400); RDW Standard Deviation 50.7 fL (35.1-46.3); Red Blood Cell Count 3.54 M/mm3 (3.80-5.20); White Blood Cell Count 28.22 K/mm3 (4.00-11.30)
[2019-06-01 04:57] LABS: Calcium, Blood 7.9 mg/dL (8.5-10.1); Creatinine, Blood 1.72 mg/dL (0.40-1.00); Potassium, Blood 4.7 mmol/L (3.5-5.5)
--- NOTE | 2019-06-01 08:13 | NUR ---
SHIFT SUMMARY PT NEW POST OP ADMIT THIS AM. POD #0 TO 1 LEFT ANKLE REPAIR WITH EXTERNAL HARDWARE. AAOX4/MENTASTA. DISCOMFORT CONTROLLED WITH 1 NORCO X1 + 2MG IV MORPHINE X1 THIS SHIFT. NAUSEA CONTROLLED WITH ZOFRAN, NO EMESIS. MOVES TOES WELL, DENIES N/T BLE, UNABLE TO CHECK PULSES DUE TO SWELLING TO RLE + DRESSING TO LLE, BRISK CAP REFILL BLE. SCATTERED ABRASIONS + BRUSING AND WOUND TO COCCYX NOTED UPON ADMISSION, SEE WOUND DOCUMENTATION IN CHART. PT RESTED WELL THIS AM, WITH CALL LIGHT IN REACH. REPORT TO DAY SHIFT RN.
--- NOTE | 2019-06-01 14:37 | NUR ---
PT GAVE PERMISSION ON 06/01/19 TO PARTICIPATE IN CARE ON 06/02/19.
--- NOTE | 2019-06-01 22:36 | NUR ---
REPORT GIVEN TO GIACOMO WEEMS
[2019-06-02 04:37] LABS: BASOPHILS ABSOLUTE AUTO 0.02 K/mm3 (0.00-0.23); BASOPHILS PERCENT AUTO 0 % (0-2); EOSINOPHILS PERCENT AUTO 0 % (0-6); Hematocrit 23.7 % (33.0-51.0); Hemoglobin 7.1 g/dL (11.5-16.0); IMMATURE GRAN ABSOLUTE AUTO 0.16 K/mm3 (0.00-0.10); IMMATURE GRAN PERCENT AUTO 1 % (0-1); LYMPHOCYTES ABSOLUTE AUTO 1.09 K/mm3 (0.84-5.20); LYMPHOCYTES PERCENT AUTO 5 % (21-46); MONOCYTES ABSOLUTE AUTO 1.63 K/mm3 (0.16-1.47); MONOCYTES PERCENT AUTO 7 % (4-13); Mean Corpuscular HGB 24.8 pg (26.0-34.0); Mean Platelet Volume 11.6 fL (9.1-12.4); NEUTROPHILS ABSOLUTE AUTO 21.09 K/mm3 (1.96-9.15); NEUTROPHILS PERCENT AUTO 88 % (41-73); Platelet Count 197 K/mm3 (150-400); RDW Coefficient Variation 16.3 % (11.7-14.2); RDW Standard Deviation 49.5 fL (35.1-46.3); Red Blood Cell Count 2.86 M/mm3 (3.80-5.20); White Blood Cell Count 23.99 K/mm3 (4.00-11.30)
[2019-06-02 04:39] LABS: Mean Corpuscular Volume 83 fL (80-100)
[2019-06-02 04:57] LABS: Albumin, Blood 2.2 g/dL (3.4-5.0); Albumin/Globulin Ratio 0.8 (0.8-1.8); Bilirubin, Total 0.4 mg/dL (0.1-1.0); Bun/Creatinine Ratio 20.3 (12.0-20.0); Calcium, Blood 7.3 mg/dL (8.5-10.1); Creatinine, Blood 1.97 mg/dL (0.40-1.00); Globulin, Blood 2.8 g/dL (2.2-4.0); Potassium, Blood 4.4 mmol/L (3.5-5.5)
--- NOTE | 2019-06-02 06:50 | NUR ---
SUMMARY PT SLEPT WELL THIS SHIFT. NO ISSUES NOTED DURING THE NIGHT. PT WOKE UP THIS AM WITH INCREASED DISCOMFORT. ATTEMPTING TO CONTROL DISCOMFORT. PT CAP REFILL BILAT <3 SEC. PT IS CONFUSED AND IS ORIENTAITED EASILY. CALL LIGHT IN REACH.
--- NOTE | 2019-06-02 07:42 | NUR ---
LLE ELEVATED ON PILLOWS, DENIES ANY NEED FOR PAIN MEDS AT TIME, A&O X3 BUT FORGETFUL, REORIENTS EASILY.
--- NOTE | 2019-06-02 11:53 | NUR ---
UP TO DANSHRADDHAE W/ PHYS. TX, 2 PERSON MAX ASSIST, PT TOLERATED FAIRLY WELL.
--- NOTE | 2019-06-02 17:12 | NUR ---
DENIES ANY NEED FOR PAIN MEDS AT THIS TIME, BARBARA WRAP LOOSENED SLIGHTLY FOR PT'S COMFORT, OK PER DR. NINO, PLAN FOR WOUND VAC DSG CHANGE AND WASH OUT TOMORROW, PT AWARE, REFUSED NORCO TODAY, SLEPT MOST OF AFTERNOON, NO ACUTE CHANGES THIS SHIFT.
--- NOTE | 2019-06-03 04:12 | NUR ---
SHIFT SUMMARY: PT POD#3 FOR I&D TO LEFT ANKLE. SPLINT AND EXTERNAL FIXATOR IN PLACE. EXTREMITY ELEVATED ON 2 PILLOWS. WOUND VAC INTACT AND DRAINING SS FLUID. PAIN MANAGED WITH PO PAIN MEDS PER EMAR. PT HAS BEEN NPO SINCE MIDNIGHT FOR ADDITIONAL I&D TODAY. Q6 CBGS STABLE IN 80'S. LR INFUSING PER EMAR. PT CONFUSED T/O SHIFT AND TALKING TO SELF MOST OF NIGHT. A&O X1. O2 >90% ON 2LO2 VIA NC PER PT BASELINE. CONT BIOX IN PLACE.
[2019-06-03 05:12] LABS: BASOPHILS ABSOLUTE AUTO 0.02 K/mm3 (0.00-0.23); BASOPHILS PERCENT AUTO 0 % (0-2); EOSINOPHILS ABSOLUTE AUTO 0.08 K/mm3 (0.00-0.68); EOSINOPHILS PERCENT AUTO 0 % (0-6); Hematocrit 23.3 % (33.0-51.0); Hemoglobin 6.9 g/dL (11.5-16.0); IMMATURE GRAN ABSOLUTE AUTO 0.15 K/mm3 (0.00-0.10); IMMATURE GRAN PERCENT AUTO 1 % (0-1); LYMPHOCYTES ABSOLUTE AUTO 2.33 K/mm3 (0.84-5.20); LYMPHOCYTES PERCENT AUTO 13 % (21-46); MONOCYTES ABSOLUTE AUTO 1.96 K/mm3 (0.16-1.47); MONOCYTES PERCENT AUTO 11 % (4-13); Mean Corpuscular HGB 24.4 pg (26.0-34.0); Mean Corpuscular HGB Conc 29.6 g/dL (31.5-36.5); Mean Corpuscular Volume 82 fL (80-100); Mean Platelet Volume 12.3 fL (9.1-12.4); NEUTROPHILS ABSOLUTE AUTO 13.28 K/mm3 (1.96-9.15); NEUTROPHILS PERCENT AUTO 75 % (41-73); NRBC ABSOLUTE 0.02 K/mm3 (0.00-0.02); NRBC Auto 0.1 /100 WBC (0.0-0.2); Platelet Count 198 K/mm3 (150-400); RDW Coefficient Variation 16.4 % (11.7-14.2); RDW Standard Deviation 49.1 fL (35.1-46.3); Red Blood Cell Count 2.83 M/mm3 (3.80-5.20); White Blood Cell Count 17.82 K/mm3 (4.00-11.30)
[2019-06-03 05:30] LABS: Bun/Creatinine Ratio 26.2 (12.0-20.0); C-REACTIVE PROTEIN, EXT RANGE 11.7 mg/dL (0.000-0.300); Calcium, Blood 7.8 mg/dL (8.5-10.1); Creatinine, Blood 1.68 mg/dL (0.40-1.00); Potassium, Blood 4.4 mmol/L (3.5-5.5)
--- NOTE | 2019-06-03 07:15 | NUR ---
pt getting 1 unit prbc pt confused plan for i&d today npo
--- NOTE | 2019-06-03 10:56 | NUR ---
pt grandchildren at bedside updated them on condition pt getting 2nd unit of blood
--- NOTE | 2019-06-03 12:25 | NUR ---
pt transported via bed to day surg still getting 2nd unti prbc pt b/p going up sent po metoprolol with rn to give
--- NOTE | 2019-06-03 12:47 | NUR ---
History, Chart, Medications and Allergies reviewed before start of procedure. Lungs clear T/O to Auscultation.
--- NOTE | 2019-06-03 14:52 | NUR ---
06/03/19 1452 Mayra Munguia A PATIENT WAS PREPPED WITH BETADINE SOLUTION LAST SURGERY AND TOLERATED THE PREP WIHOUT ANY PROBLEMS OR CONCERNS.
--- NOTE | 2019-06-03 16:00 | NUR ---
PT ARRIVED BACK TO ROOM 227 FROM PACU S/P L i&D PT FOOT IS COOL TO THE TOUCH PT CAN WIGGLE TOES WILL LOOSEN BARBARA WRAP PT GIVEN SOME ICE WATER ASKED PT IF SHE WOULD LIKE SOMETHING TO EAT STATED NO
--- NOTE | 2019-06-03 16:30 | NUR ---
dr valdes by to see pt
--- NOTE | 2019-06-03 18:55 | NUR ---
TEMP 100.0 COVERS REMOVED PO TYLENOL GIVEN TURNED DOWN THE HEAT IN THE ROOM
[2019-06-04 05:32] LABS: BASOPHILS ABSOLUTE AUTO 0.01 K/mm3 (0.00-0.23); BASOPHILS PERCENT AUTO 0 % (0-2); EOSINOPHILS PERCENT AUTO 0 % (0-6); Hematocrit 30.1 % (33.0-51.0); Hemoglobin 9.3 g/dL (11.5-16.0); IMMATURE GRAN ABSOLUTE AUTO 0.11 K/mm3 (0.00-0.10); IMMATURE GRAN PERCENT AUTO 1 % (0-1); LYMPHOCYTES ABSOLUTE AUTO 0.49 K/mm3 (0.84-5.20); LYMPHOCYTES PERCENT AUTO 4 % (21-46); MONOCYTES ABSOLUTE AUTO 0.83 K/mm3 (0.16-1.47); MONOCYTES PERCENT AUTO 6 % (4-13); Mean Corpuscular HGB 25.9 pg (26.0-34.0); Mean Corpuscular HGB Conc 30.9 g/dL (31.5-36.5); Mean Corpuscular Volume 84 fL (80-100); NEUTROPHILS ABSOLUTE AUTO 11.99 K/mm3 (1.96-9.15); NEUTROPHILS PERCENT AUTO 89 % (41-73); NRBC ABSOLUTE 0.04 K/mm3 (0.00-0.02); NRBC Auto 0.3 /100 WBC (0.0-0.2); Platelet Count 204 K/mm3 (150-400); RDW Coefficient Variation 16.4 % (11.7-14.2); RDW Standard Deviation 49.9 fL (35.1-46.3); Red Blood Cell Count 3.59 M/mm3 (3.80-5.20); White Blood Cell Count 13.43 K/mm3 (4.00-11.30)
--- NOTE | 2019-06-04 06:05 | NUR ---
PATIENT WITH EXTERNAL FIXATION ON HER LT LEG AND HEAL. BARBARA WRAP AROUND LT LOWER LEG. LT FOOT IS SLIGHTLY COOLER THAT HER RT FOOT. LG WOUND VAC IS ON WITH POSITIVE SUCTION, SS FLUID IN TUBING. PATIENT HAS CONTINUED WITH CONFUSION, AND HALLUCINATIONS. SHE IS SEEING THINGS IN THE ROOM THAT ARE NOT PRESENT, AND HAVING CONVERSATIONS WITH PEOPLE NO PRESENT. SHE OCCASIONALLY HAS A CLEAR THOUGH/ CONVERSATION MOSTLY WHEN DISCUSSING HERSELF OR A STORY FROM HER PAST. NO OTHER ACUTE CHANGES.
[2019-06-04 06:11] LABS: Calcium, Blood 7.7 mg/dL (8.5-10.1); Creatinine, Blood 1.11 mg/dL (0.40-1.00); Magnesium, Blood 2.4 mg/dL (1.6-2.4); Potassium, Blood 4.8 mmol/L (3.5-5.5)
--- NOTE | 2019-06-04 13:13 | NUR ---
DR ISTRATE BEEN HERE TO SEE PT, SEE ORDERS. DISCUSSED PT'S STATUS.
--- NOTE | 2019-06-04 13:28 | NUR ---
IVF RATE DECREASED PER ORDER.
--- NOTE | 2019-06-04 13:50 | NUR ---
DR NINO HERE RECENTLY TO SEE PT.
--- NOTE | 2019-06-04 17:30 | NUR ---
SHIFT SUMMARY PT BEEN ASSISTED WITH ADL'S PRN. PO INTAKE BEEN ENCOURAGED AFTER TALKING WITH DR. ALLEN. PT BEEN REPOSITIONED MULT TIMES WITH BLE ELEVATED WITH PILLOW BETWEEN LEGS D/T EXTERNAL FIXATION. IV TO TKO TODAY. NEW KERLEX PLACED TO RLE. PT CONT TO HAVE COUGH AT TIMES. PT CONT TO HAVE HALLUCINATIONS. ALARM IN PLACE.
--- NOTE | 2019-06-04 18:01 | NUR ---
DISCUSSED PT DIET WITH DR ISTRATE PT REPORTED TO NOT CURRENTLY HAVE TEETH WITH HER, SEE ORDERS.
--- NOTE | 2019-06-05 00:55 | NUR ---
@ 2300 RT WAS CALLED TO HELP EVALUATE THE PATIENT. bIOX WAS 80-88% ON 4LNC. PATIENT IS COARSE TO WITH END EXPIRATORY WHEEZE. SHE IS ABLE TO FOLLOW DIRECTIONS FOR COUGHING AND DEEP BREATHING. PT WAS ALSO ABLE TO "BLOW OUT THE CANDLES" WITH THE FLUTTERVALVE. SUCTION SET UP TO HELP WITH SPUTUM CLEARANCE. @1230 RT WAS ASKED TO COME BACK AND DO AN UDN. BIOX NOW AVERAGING 92%. NO DISCERNABLE CHANGE WITH LUNG SOUNDS.
[2019-06-05 05:00] LABS: BASOPHILS ABSOLUTE AUTO 0.03 K/mm3 (0.00-0.23); BASOPHILS PERCENT AUTO 0 % (0-2); EOSINOPHILS ABSOLUTE AUTO 0.01 K/mm3 (0.00-0.68); EOSINOPHILS PERCENT AUTO 0 % (0-6); Hematocrit 35.5 % (33.0-51.0); IMMATURE GRAN PERCENT AUTO 1 % (0-1); LYMPHOCYTES ABSOLUTE AUTO 1.57 K/mm3 (0.84-5.20); LYMPHOCYTES PERCENT AUTO 8 % (21-46); MONOCYTES ABSOLUTE AUTO 2.61 K/mm3 (0.16-1.47); MONOCYTES PERCENT AUTO 13 % (4-13); Mean Corpuscular HGB 26.4 pg (26.0-34.0); Mean Corpuscular Volume 85 fL (80-100); Mean Platelet Volume 12.1 fL (9.1-12.4); NEUTROPHILS ABSOLUTE AUTO 16.29 K/mm3 (1.96-9.15); NEUTROPHILS PERCENT AUTO 79 % (41-73); NRBC ABSOLUTE 0.06 K/mm3 (0.00-0.02); NRBC Auto 0.3 /100 WBC (0.0-0.2); Platelet Count 280 K/mm3 (150-400); RDW Coefficient Variation 17.2 % (11.7-14.2); RDW Standard Deviation 52.8 fL (35.1-46.3); Red Blood Cell Count 4.16 M/mm3 (3.80-5.20); White Blood Cell Count 20.71 K/mm3 (4.00-11.30)
[2019-06-05 05:19] LABS: PCO2 Arterial 55.9 mmHg (35-45); PO2 Arterial 78.2 mmHg (80-100); pH Blood Arterial 7.34 (7.35-7.45)
[2019-06-05 05:40] LABS: Bun/Creatinine Ratio 21.8 (12.0-20.0); Calcium, Blood 8.1 mg/dL (8.5-10.1); Creatinine, Blood 1.1 mg/dL (0.40-1.00)
--- NOTE | 2019-06-05 06:00 | NUR ---
@0350 PATIENT BEGAN COUGHING ON HER OWN AND PRODUCED LARGE THICK YELLOW MUCUS. OVER THE NEXT HOUR SHE REQUIRED MORE O2 TO KEEP HER SATS ABOVE 88%. HER LUNGS HAD COARSE BS AND END EXP WHEEZING. ORAL SUCTIONING PRODUCED SMALL AMOUNTS OF MUCUS. O2 INCREASED FROM 4L TO 10L @ 0425 DR SULLIVAN WAS CALLED, MESSAGE LEFT FOR CHANGE IN CONDITION. ORDERS RECIEVED FOR PORTABLE CHEST XRAY. CODING TECH CALLED @0447. LABS, ABG, XRAY, NT SUCTIONING, AND 10 L VIA OXIMIZER. PATIENT IS NOT RESPONDING TO NOXIOUS STIMULI, HOWEVER IS SWALLOWING WITH NT SUCTIONING. PATIENT TRANSFERED TO ICU 14, REPORT TO RN, FAMILY NOTIFIED OF TRANSFER @0505.
--- NOTE | 2019-06-05 07:23 | NUR ---
REC'D BEDSIDE REPORT FROM GIACOMO AELJANDRO AND AM NOW ASSUMING CARE OF THIS PT.
--- NOTE | 2019-06-05 08:45 | NUR ---
PT UPDATE: PLACED POWERGLIDE IN THE RT UA, PT HAS VERY FRAGILE SKIN, POOR/DIFFICULT VASCULAR ACCESS. ABLE TO PLACE 20G/10CM ON FIRST ATTEMPT WITHOUT DIFFICULTY. PT TOLERATED PROCEDURE WELL. INSERTED GARCIA TEMP CATH FOR LASIX IVP'S AND CONSTANT INCONTINENCE AND POOR SKIN INTEGRITY.
--- NOTE | 2019-06-05 11:21 | NUR ---
PT UPDATE: PT BATHED AND REPORTS PAIN IN THE LLE R/T SURGERY WITH EXTERNAL FIXATION DEVICE. PT ALSO HAD SOME EMESIS PER FOOT DOCTOR DURING BATHING. PT MEDICATED WITH ZOFRAN, THEN MORPHINE FOR ABOVE SYMPTOMS.
--- NOTE | 2019-06-05 11:43 | NUR ---
DR ISTRATE HERE TO ASSESS PT. UPDATED DR TO PT CURRENT STATUS. DISCUSSED ATRIAL FIB AND RATE CONTROL. PT DOES HAVE CHRONIC ATRIAL FIB A HX. WILL D/C IVF'S.
[2019-06-05 12:14] LABS: Source, Urine Catheter
[2019-06-05 12:36] LABS: Bilirubin, Urine Neg (Neg); Blood, Urine Neg (Neg); Glucose Qualitative, Urine Neg (Neg); Ketones, Urine 1+ (Neg); Leukocyte Esterase, Urine Neg (Neg); Nitrite, Urine Neg (Neg); Protein, Urine Neg (Neg); Urobilinogen, Urine NORM (Normal)
[2019-06-05 13:03] LABS: Appearance, Urine Clear (Clear); Color, Urine Pale Yellow (P-Yellow)
--- NOTE | 2019-06-05 13:58 | NUR ---
PT UPDATE: PT GIVEN SHORT 15-20 MINUTE BREAK FROM CPAP. PLACED ON 2L 02 WITH 02 SATS MAINTAINING 92%. RT IN ROOM AND CHANGED TO M-SERIES CPAP WITH 4L BLEED LITER IN. PT'S SPO2 SATS >90% ON THESE SETTINGS.
--- NOTE | 2019-06-05 14:00 | NUR ---
SPEECH THERAPIST HERE TO EVALUATE PT. SEE NEW ORDERS.
--- NOTE | 2019-06-05 16:24 | NUR ---
BILL HERE FROM [facility] TO DO ECHO, NOW THAT PT CONVERTED TO SR POST IVP METOPROLOL AND HR NOW 80'S RANGE.
--- NOTE | 2019-06-05 16:39 | NUR ---
SHIFT SUMMARY: PT IS ALERT AND ORIENTED TO SELF/FAMILY/PLACE. PT ABLE TO ANSWER SIMPLE YES/NO QUESTIONS AND FOLLOW SIMPLE COMMANDS. PT VERY DECONDITIONED BUT DOES TRY TO ASSIST W/TURNS WHEN GIVEN DIRECTIONS. PT DENIES PAIN T/O MOST OF THE SHIFT, DESPITE RECENT ORIF DONE TO LT LE. PT MEDICATED WITH MORPHINE PER ORDERS WHEN SHE DID HAVE PAIN IN LLE. LUNGS WITH INS/EXP WHEEZES/CRACKLES T/O BILATERALLY. SP02 >90% ON CPAP (M-SERIES) WITH 4L 02 BLEED IN OR 4L 02 VIA N/C. PT DOES DESAT QUICKLY WHEN TRANSITIONING FROM MASK TO N/C, OR WHEN PT FALLS ASLEEP WITH N/C, PT IS A MOUTH BREATHER. PT WAS IN ATRIAL FIB WITH UNCONTROLLED RATE T/O MOST OF SHIFT (HR 120-140'S RANGE). AFTER ONE DOSE OF METOPROLOL IVP, PT QUICKLY CONVERTED BACK TO SR WITH FREQUENT PAC'S, 70'S RANGE. THEN ECHO COMPLETED ONCE HR CONTROLLED. ABD SOFT/ROUND/NON-TENDER. BT'S HYPOACTIVE X4 QAUDS. PT HAS HAD A COUPLE EPISODES OF NAUSEA AND TX'D WITH ZOFRAN. PT MADE NPO AFTER SPEECH THERAPY DID CONSULT. SEE THEIR NOTES. GARCIA PLACED THIS SHIFT FOR CONSTANT INCONTINENCE, REC'ING LASIX AND POOR SKIN INTEGRITY. PT HAS EXTENSIVE EECHYMOSIS SCATTERED OVER ENTIRE BODY (WORSE ON UE'S). POWERGLIDE PLACED TO RT UA FOR DIFFICULT/ADD'L IV ACCESS. NS-TKO.
--- NOTE | 2019-06-05 16:49 | NUR ---
Echocardiogram completed.
--- NOTE | 2019-06-05 19:12 | NUR ---
REPORTED OFF TO GIACOMO REDDING WHOM IS NOW ASSUMING CARE OF THIS PT.
--- NOTE | 2019-06-06 00:23 | NUR ---
PROGRESS NOTE 06/05 @ 23:15 PATIENT CONVERTED INTO ATRIAL FIBRILATION WITH RAPID VENTRICULAR RESPONSE, HR CONSISTENTLY NEAR 160 BPM. BLOOD PRESSURE MINIMALLY AFFECTED, 100/60S WITH MAPS 75-80. PER FELISA HARDIN TO GIVE METOPROLOL 5MG IVP, CALL BACK IF HR NOT BACK UNDER CONTROL. WITHIN 20 MINUTES, STARTED TO SEE RESULTS, OCASSIONALY DIPPING LOW 107, HOWEVER PATIENT CONSISTENTLY REMAINING NEAR 130 BPM, BP REMAINS STABLE. @ 00:[address] TREVIZO, RECEIVED ORDER TO START CARDIZEM DRIP. VSS. WILL CONTINUE TO MONITOR.
[2019-06-06 04:06] LABS: BASOPHILS ABSOLUTE AUTO 0.01 K/mm3 (0.00-0.23); BASOPHILS PERCENT AUTO 0 % (0-2); EOSINOPHILS ABSOLUTE AUTO 0.02 K/mm3 (0.00-0.68); EOSINOPHILS PERCENT AUTO 0 % (0-6); Hemoglobin 9.7 g/dL (11.5-16.0); IMMATURE GRAN ABSOLUTE AUTO 0.07 K/mm3 (0.00-0.10); IMMATURE GRAN PERCENT AUTO 1 % (0-1); LYMPHOCYTES ABSOLUTE AUTO 1.01 K/mm3 (0.84-5.20); LYMPHOCYTES PERCENT AUTO 9 % (21-46); MONOCYTES ABSOLUTE AUTO 1.33 K/mm3 (0.16-1.47); MONOCYTES PERCENT AUTO 12 % (4-13); Mean Corpuscular HGB 26.3 pg (26.0-34.0); Mean Corpuscular HGB Conc 30.3 g/dL (31.5-36.5); Mean Corpuscular Volume 87 fL (80-100); Mean Platelet Volume 11.3 fL (9.1-12.4); NEUTROPHILS ABSOLUTE AUTO 8.37 K/mm3 (1.96-9.15); NEUTROPHILS PERCENT AUTO 78 % (41-73); NRBC ABSOLUTE 0.03 K/mm3 (0.00-0.02); NRBC Auto 0.3 /100 WBC (0.0-0.2); Platelet Count 234 K/mm3 (150-400); RDW Coefficient Variation 17.4 % (11.7-14.2); Red Blood Cell Count 3.69 M/mm3 (3.80-5.20); White Blood Cell Count 10.81 K/mm3 (4.00-11.30)
[2019-06-06 04:25] LABS: Albumin, Blood 2.2 g/dL (3.4-5.0); Albumin/Globulin Ratio 0.6 (0.8-1.8); Bilirubin, Total 0.7 mg/dL (0.1-1.0); Bun/Creatinine Ratio 25.4 (12.0-20.0); Calcium, Blood 7.5 mg/dL (8.5-10.1); Creatinine, Blood 1.22 mg/dL (0.40-1.00); Globulin, Blood 3.5 g/dL (2.2-4.0); Potassium, Blood 3.4 mmol/L (3.5-5.5); Total Protein, Blood 5.7 g/dL (6.4-8.2)
[2019-06-06 04:47] LABS: Magnesium, Blood 2.2 mg/dL (1.6-2.4); Phosphorus, Blood 3.1 mg/dL (2.5-4.9)
--- NOTE | 2019-06-06 07:30 | NUR ---
ASSUMED CARE NOTE REPORT RECEIVED FROM GIACOMO REDDING. BEDSIDE REPORT DONE. PT RESTING IN BED WITH O2 AT 6LPM VIA HNC. PT WITH OCCASIONAL MOIST, PRODUCTIVE COUGH. PT C/O FEELING TIRED OF COUGHING. BREATHING NOTED TO BE LABORED AND TACHYPNEIC. CPAP MASK APPLIED. PT DENIES ANY CHEST PAIN/PRESSURE. BP STABLE. SEE FLOWSHEET FOR VS. PT AWAKE, ALERT AND ORIENTED TO ALL BUT EVENT, FORGETFUL OF THE FACT THAT SHE HAS AN EXTERNAL FIXATOR TO LLE. BLE ELEVATED TO COMFORT. PER REPORT PT TO HAVE WOUND VAC TO LLE CHANGED TODAY. PT ABLE TO WIGGLE TOES, DENIES ANY NUMBNESS/TINGLING. SKIN FRAGILE, MUCH BRUISING SCATTERED OVER BODY. POWERGLIDE TO JOSE, FLUSHES AND DRAWS EASILY. PIV TO RFA. 20MEQ KCl RUNNING PER ORDERS FOR REPLACEMENT OF 3.4 POTASSIUM LEVEL. BED IN LOWEST POSITION, SIDE RAILS RAISED. CALL LIGHT IN REACH. WILL CONT TO MONITOR PT.
--- NOTE | 2019-06-06 07:57 | NUR ---
SHIFT SUMMARY PATIENT SLEPT OFF AND ON THROUGH NIGHT. MENTATION APPEARS BETTER THAN AT BEGIN OF SHIFT, STILL OCASIONALLY CONFUSED TO WHY STILL IN HOSPITAL, BUT REORIENTABLE NOW. SWITCHED FROM NSR TO AFIB, BACK TO NSR, BACK TO AFIB, AND FINALLY BACK TO NSR. STARTED ON CARDIZEM DRIP AROUND 03:00, INCREASED AT 04:00, DECREASED ~ 04:45 AFTER CONVERTED TO NSR. DID NOTE 4-SECOND PAUSE UPON CONVERSION, ASYMPTOMATIC. NO BM TONIGHT. WOUND CARE AROUND PINS OF EXTERNAL FIXATOR COMLETED, DRESSING CHANGED. LAID XEROFORM AGAINST SKIN, SPLIT GAUZE ON TOP I FOUND IT, TUCKED BACK INTO BARBARA WRAP. VSS. NO C/O PAIN. WILL CONTINUE TO MONITOR.
--- NOTE | 2019-06-06 11:19 | NUR ---
SPEECH THERAPY RE-EVAL SAM, SPEECH THERAPIST AT BEDSIDE PERFORMING RE-EVAL AT THIS TIME.
--- NOTE | 2019-06-06 11:19 | NUR ---
DR ALLEN ROUNDS DR ALLEN ROUNDED, UPDATED ON PT STATUS. DISCUSSED WITH DR ALLEN THOUGHTS ON PLACING NGT AND DIETARY CONSULT TO INITIATE TUBE FEEDING, DR ALLEN OKAY WITH THIS. DR ALLEN AWARE THAT PT HAS FAILED HER SPEECH THERAPY SWALLOW EVAL, BUT THEY ARE PERFORMING RE-EVAL NOW. ORDER PLACED TO INITIATE NGT. DR ALLEN AWARE THAT PT HAS BEEN NPO D/T HIGH ASPIRATION RISK AND DISCUSSED THAT STEROID HAS BEEN HELD, ORDER PLACED FOR PREVIOUSLY ORDERED SOLU-CORTEF 25MG IV. NO FURTHER CHANGES TO PLAN OF CARE AT THIS TIME.
--- NOTE | 2019-06-06 11:57 | NUR ---
DOBHOFF PLACEMENT DOBHOFF PLACED WITHOUT EVENT. STAT CXR ORDERED FOR PLACEMENT VERIFICATION.
--- NOTE | 2019-06-06 12:44 | NUR ---
CXR FOR DOBHOFF PLACEMENT VERIFICATION CXR DONE TO VERIFY DOBHOFF PLACEMENT. DOBHOFF IN STOMACH.
--- NOTE | 2019-06-06 12:53 | NUR ---
SHIFT UPDATE PT MEDICATED PER ORDERS WITH 2MG IV MORPHINE FOR PAIN RATED 7/10 PRIOR TO BB. BB DONE AND LOTION APPLIED TO SKIN PT'S SKIN VERY DRY. MEPILEX DRESSINGS TO SKIN TEARS REMAIN IN PLACE, C/D/I. PT REPOSITIONED TO LEFT SIDE WITH PILLOWS FOR PRESSURE RELIEF. NYSTATIN APPLIED UNDER BREASTS PER ORDERS. THOROUGH CATH CARE DONE. EXTREMITIES ELEVATED ON PILLOWS. PLAN FOR WOUND CARE AND WOUND VAC CHANGE TO LLE LATER THIS SHIFT PT REQUESTING TO NAP NOW. BED IN LOWEST POSITION, HOB IN FOWLERS POSITION. CALL LIGHT IN REACH. WILL CONT TO MONITOR PT.
--- NOTE | 2019-06-06 13:50 | NUR ---
CARDIZEM GTT PT'S RATE IN 130S, RHYTHM SHOWING SINUS TACH. BP STABLE. CARDIZEM GTT INCREASED TO 10ML/HR TO MANAGE RATE. WILL CONT TO MONITOR PT.
--- NOTE | 2019-06-06 13:56 | NUR ---
PHYSICAL THERAPY PHYSICAL THERAPIST TO BEDSIDE TO WORK WITH PT. PLAN TO SEE PT TOMORROW PT IS TACHY IN 130S AND TACHYPNEIC AT REST. PT WORN OUT FROM BB AND REPOSITIONING. PT REQUESTING TO BE ALLOWED TO REST.
--- NOTE | 2019-06-06 14:57 | NUR ---
CARDIZEM GTT TITRATION CARDIZEM GTT TITRATED UP TO 15ML/HR D/T HR CONTINUING TO RUN IN 130S. BP STABLE. SEE FLOWSHEET. WILL CONT TO MONITOR PT AND TITRATE TO EFFECT.
--- NOTE | 2019-06-06 15:36 | NUR ---
WOUND VAC CHANGED WOUND VAC CHANGED PER DR NINO ORDER. SITE CLEANSED PRIOR TO NEW WOUND VAC DRESSING BEING APPLIED. WOUND VAC TURNED BACK ON TO PREVIOUS SETTINGS, NO AIR LEAK NOTED. INSERTION SITE OF PINS FOR EXTERNAL FIXATOR CLEANSED AND REDRESSED WITH GAUZE. KERLEX AND BARBARA WRAP USED TO REWRAP LLE. PT REPORTING PAIN TO BE 7/10, PLAN TO MEDICATE WITH MORPHINE PER ORDERS. PT CONTINUES TO BE ABLE TO WIGGLE TOES AND DENIES ANY NUMBNESS/TINGLING. WILL CONT TO MONITOR PT.
--- NOTE | 2019-06-06 16:02 | NUR ---
TUBE FEEDING STARTED GLUCERNA 1.2 FORMULA INITIATED AT 25ML/HR PER DIETITIAN ORDER WITH 100ML WATER FLUSH Q4H VIA DOBHOFF.
--- NOTE | 2019-06-06 18:23 | NUR ---
SHIFT SUMMARY PT RESTING IN BED WITH EXTREMITIES ELEVATED. PT AWAKENS EASILY TO VERBAL STIMULI, ORIENTED TO ALL BUT REASON FOR HOSPITALIZATION. PT C/O PAIN TO LLE, MEDICATED PER ORDERS WITH MORPHINE TWICE WITH RELIEF REPORTED. WOUND VAC DRESSING TO LLE CHANGED AND CANISTER CHANGED OUT, PIN INSERTION SITES CLEANSED AND DRESSED. PEDAL PULSE PALPATED, FAINT. PT ABLE TO WIGGLE TOES. PT DENIES ANY NUMBNESS/TINGLING TO EXTREMITIES. LS COARSE WITH WHEEZING T/O. PT SOB AND TACHYPNEIC EVEN AT REST. PT WITH LOOSE COUGH, PRODUCTIVE. CPAP ON AT THIS TIME PT IS RESTING WITH EYES CLOSED. SPO2 97%. RHYTHM CHANGED TO AFIB WITH RATE IN 130S AFTER DOBHOFF PLACED. CARDIZEM GTT REMAINS RUNNING, TITRATED TO 15ML/HR. BP STABLE, HR IN 110S. PT CONTINUES TO DENY ANY CHEST PAIN/PRESSURE. SEE FLOWSHEET FOR VS. ABD NORMAL PER PT, NONTENDER. BT X4, HYPOACTIVE. DOBHOFF PLACED AND WITH GLUCERNA 1.2 RUNNING AT 25ML/HR PER ORDERS WITH 100ML WATER FLUSH Q4H. PLAN TO INCREASE TUBE FEED RATE TO 35ML/HR AT MIDNIGHT PER DIETITIAN ORDERS. PT TOLERATING TUBE FEED WELL. CBG CHECKED Q6H PER ORDERS, NO COVERAGE INDICATED EITHER CHECK. NO BM. GARCIA CATHETER CONTINUES TO DRAIN CLOUDY, YELLOW URINE TO GRAVITY. SKIN VERY FRAGILE, BRUISING SCATTERED OVER BODY. SCATTERED SKIN TEARS WITH MEPILEX DRESSINGS IN PLACE. BEDBATH GIVEN AND REPOSITIONED TOLERATED AND ACCEPTED BY PT. POWERGLIDE TO JOSE, FLUSHES AND DRAWS EASILY. NS TKO. BED IN LOWEST POSITION, SIDE RAILS RAISED. CALL LIGHT IN REACH. WILL CONT TO MONITOR PT.
--- NOTE | 2019-06-06 18:34 | NUR ---
ARRHYTHMIA PT BRADYCARDIC WITH RATE IN 50S. RHYTHM SHOWED 4 SECOND PAUSE. THIS RN TO ROOM. PT RESTING WITH EYES CLOSED, AWOKE PT. CARDIZEM GTT PLACED ON STANDBY. PT DENIES ANY CHEST PAIN/PRESSURE. WHEN ASKED HOW SHE IS FEELING, PT STATED "MY NOSE HURTS" - CPAP MASK WITH GEL CUSHION TO BRIDGE OF NOSE. RHYTHM SHOWING NORMAL SINUS WITH HR IN 60S WITH OCCASIONAL PVC. BP STABLE. WILL CONT TO MONITOR PT.
--- NOTE | 2019-06-06 19:00 | NUR ---
REPORT BEDSIDE REPORT RECEIVED FROM GIACOMO MADERA. PT RESTING IN BED WITH EYES CLOSED, CPAP IN PLACE. RN REPORTS PT RECEIVED BATH, LINEN CHANGE, DRSG CHANGES AND WOUND CARE. PT HAS NS @ TKO VIA RT UPPER ARM POWERGLIDE, SL TO RT FA, DOBHOFF WITH GLUCERNA FEEDING AT 25cc/HR, GARCIA TO DD, WOUND VAC IN PLACE. SHE ALSO REPORTS PT HEART RATE IS NOW SR WITH PVCs, RATE 60-70s AND CARDIZEM ON STANDBY. EXTENSIVE BRUISING TO LT SIDE R/T FALL, LUNGS WITH CRACKLES AND WHEEZES THROUGHOUT, FREQ. COUGH, MOVES TOES BILAT, ZOFRAN GIVEN THIS AM FOR C/O NAUSEA, OTHER PO MEDS HELD R/T FAILED SWALLOW STUDY. THIS RN WILL ASSUME CARE OF PT AND MONITOR THROUGHOUT SHIFT.
[2019-06-07 04:44] LABS: BASOPHILS ABSOLUTE AUTO 0.01 K/mm3 (0.00-0.23); BASOPHILS PERCENT AUTO 0 % (0-2); EOSINOPHILS PERCENT AUTO 0 % (0-6); Hematocrit 32.2 % (33.0-51.0); Hemoglobin 9.5 g/dL (11.5-16.0); IMMATURE GRAN ABSOLUTE AUTO 0.06 K/mm3 (0.00-0.10); IMMATURE GRAN PERCENT AUTO 1 % (0-1); LYMPHOCYTES ABSOLUTE AUTO 0.24 K/mm3 (0.84-5.20); LYMPHOCYTES PERCENT AUTO 3 % (21-46); MONOCYTES ABSOLUTE AUTO 1.01 K/mm3 (0.16-1.47); MONOCYTES PERCENT AUTO 13 % (4-13); Mean Corpuscular HGB 25.5 pg (26.0-34.0); Mean Corpuscular HGB Conc 29.5 g/dL (31.5-36.5); Mean Corpuscular Volume 87 fL (80-100); NEUTROPHILS ABSOLUTE AUTO 6.51 K/mm3 (1.96-9.15); NEUTROPHILS PERCENT AUTO 83 % (41-73); NRBC ABSOLUTE 0.07 K/mm3 (0.00-0.02); NRBC Auto 0.9 /100 WBC (0.0-0.2); Platelet Count 263 K/mm3 (150-400); RDW Coefficient Variation 17.9 % (11.7-14.2); Red Blood Cell Count 3.72 M/mm3 (3.80-5.20); White Blood Cell Count 7.83 K/mm3 (4.00-11.30)
[2019-06-07 04:58] LABS: Calcium, Blood 7.8 mg/dL (8.5-10.1); Creatinine, Blood 1.12 mg/dL (0.40-1.00); Magnesium, Blood 2.6 mg/dL (1.6-2.4); Phosphorus, Blood 2.9 mg/dL (2.5-4.9); Potassium, Blood 3.5 mmol/L (3.5-5.5)
--- NOTE | 2019-06-07 08:51 | NUR ---
RESPIRATORY THERAPY ROUNDS RT AT BEDSIDE FOR BREATHING TX. PT AUDIBLY WHEEZING.
--- NOTE | 2019-06-07 12:01 | NUR ---
DR ALLEN ROUNDS DR ALLEN ROUNDED, UPDATED ON PT STATUS. PER DR ALLEN, PT OKAY TO HAVE ICE CHIPS PRN. ORDERS TO D/C LASIX 40MG IV BID AND CHANGE TO 30MG IV TID. NO FURTHER CHANGES TO PLAN OF CARE AT THIS TIME. WILL CONT TO MONITOR PT.
--- NOTE | 2019-06-07 16:46 | NUR ---
TUBE FEED TITRATION PT TOLERATING TF WELL. NO C/O NAUSEA. GLUCERNA 1.2 CONTINUES RUNNING, RATE TITRATED UP TO 50ML/HR PER ORDERS INDICATING GOAL RATE. FLUSH CONTINUES TO BE 100ML WATER Q4H. WILL CONT TO MONITOR PT.
--- NOTE | 2019-06-07 17:25 | NUR ---
TUBE FEED CHANGE TUBE FEED FORMULA, FLUSH, AND TUBING CHANGED OUT. TUBE FEED CONTINUES TO RUN AT 50ML/HR WITH 100ML WATER FLUSH Q4H PER DIETITIAN ORDERS. TUBE FEED FORMULA REMAINS GLUCERNA 1.2. PT CONTINUES TO TOLERATE TUBE FEEDING WELL.
--- NOTE | 2019-06-07 19:10 | NUR ---
REPORT RECEIVED BEDSIDE REPORT RECEIVED FROM GIACOMO MADERA. PT RESTING IN BED, CONFUSED. RN REPORTS PT HAD RUN OF V-TACH TODAY, REMAINS IN A-FIB BUT IS CHRONIC WITH CARDIZEM @ 5 MG/HR FOR RATE CONTROL. PT CAN HAVE ICE CHIPS PER DR ORDER AND NURSE DISCRETION. PT HAS FAILED BEDSIDE SWALLOW STUDY X2 BY ST. DOBHOFF TUBE FEEDING GLUCERNA 1.2 CYNTHIA @ 50CC/HR-GOAL RATE. CBG X6HRS WNL. SANTY REPORTS GIVING MS X1 TODAY R/T PT HAVING PAIN. PT DOES HAVE AUDIBLE WHEEZES AND REFUSES CPAP TODAY. GARCIA TO DD WITH CLOUDY YELLOW URINE. DRSG/WOUNDS ALSO DISCUSSED. THIS RN TO ASSUME PT CARE FOR NOC SHIFT.
[2019-06-08 05:37] LABS: BASOPHILS ABSOLUTE AUTO 0.01 K/mm3 (0.00-0.23); BASOPHILS PERCENT AUTO 0 % (0-2); EOSINOPHILS PERCENT AUTO 0 % (0-6); Hematocrit 32.5 % (33.0-51.0); Hemoglobin 9.6 g/dL (11.5-16.0); IMMATURE GRAN PERCENT AUTO 1 % (0-1); LYMPHOCYTES ABSOLUTE AUTO 0.45 K/mm3 (0.84-5.20); LYMPHOCYTES PERCENT AUTO 5 % (21-46); MONOCYTES ABSOLUTE AUTO 0.97 K/mm3 (0.16-1.47); MONOCYTES PERCENT AUTO 11 % (4-13); Mean Corpuscular HGB 25.8 pg (26.0-34.0); Mean Corpuscular HGB Conc 29.5 g/dL (31.5-36.5); Mean Corpuscular Volume 87 fL (80-100); Mean Platelet Volume 11.4 fL (9.1-12.4); NEUTROPHILS ABSOLUTE AUTO 7.29 K/mm3 (1.96-9.15); NEUTROPHILS PERCENT AUTO 83 % (41-73); NRBC ABSOLUTE 0.11 K/mm3 (0.00-0.02); NRBC Auto 1.2 /100 WBC (0.0-0.2); Platelet Count 299 K/mm3 (150-400); RDW Coefficient Variation 18.4 % (11.7-14.2); RDW Standard Deviation 58.7 fL (35.1-46.3); Red Blood Cell Count 3.72 M/mm3 (3.80-5.20); White Blood Cell Count 8.82 K/mm3 (4.00-11.30)
[2019-06-08 06:04] LABS: Bun/Creatinine Ratio 37.8 (12.0-20.0); Calcium, Blood 8.7 mg/dL (8.5-10.1); Creatinine, Blood 1.19 mg/dL (0.40-1.00); Phosphorus, Blood 3.9 mg/dL (2.5-4.9); Potassium, Blood 3.9 mmol/L (3.5-5.5)
--- NOTE | 2019-06-08 06:30 | NUR ---
shift summary PT REMAINS IN BED, TILT TO RT SIDE OR BACK WITH MAX ASSIST X1. PT CONFUSED, HAVING HALLUCINATIONS, REFUSES TO WEAR CPAP THIS SHIFT. RT LUCINDA ATTEMPTED TO PLACE PT ON CPAP AND PT REFUSES, AGITATED. HEART RATE 80-120s, AFIB WITH CARDIZEM DRIP AT 5U/HR. PT ALSO HAS NS @ TKO BOTH VIA RT UPPER ARM POWERGLIDE. LUNGS EXP WHEEZES AND CRACKLES THROUGHOUT AND DIMINISHED TO BASES BILAT. BOWEL SOUNDS PRESENT, DOBHOFF TF GLUCERNA 1.2 @ 50CC/HR. EDEMA 1+ RLE, 2+LLE, AND DEPENDENT TO RT AC. SKIN CONTINUES WITH MULTIPLE SKIN TEARS, MULTIPLE DRESSINGS, AND NUMEROUS BRUISES OVER BODY. GARCIA TO DD. EXTERNAL FIXATOR TO LLE. BEDSIDE REPOR WILL BE GIVEN TO DAY SHIFT RN.
--- NOTE | 2019-06-08 07:31 | NUR ---
ASSUMED PATIENT CARE. CARDIZEM DRIP RUNNING AT 5MG/HOUR. CURRENTLY A FIB 110S TO 130S. PATIENT HAS AUDIBLE WHEEZES. SCD IN PLACE ON RIGHT LEG, PINS IN PLACE ON LEFT ANKLE. PULSES NOTED ON LEFT FOOT.
--- NOTE | 2019-06-08 10:32 | NUR ---
DISCUSSED PT STATUS WITH DR ALLEN. AWARE OF HR AND CURRENT CARDIZEM SETTINGS; ORDER INCREASE OF METOPROLOL. DR ALSO AWARE OF LUNG SOUNDS AND ORDERED INCREASE IN LASIX. AWARE THAT DR NINO HAS COME TO SEE PT AND DOES NOT PLAN FOR FURTHER OR INTERVENTION TODAY BUT DID CHANGE WOUND VAC DRESSING TODAY. PT DELIRIOUS, TALKING TO HERSELF. DR ALLEN AWARE AND STATES THIS HAS BEEN PT'S STATUS THE LAST FEW DAYS. NO FURTHER NEEDS AT THIS TIME.
--- NOTE | 2019-06-08 13:08 | NUR ---
PATIENT HAD 15 SECOND RUN OF V TACH. IS CURRENTLY OFF CARDIZEM DRIP WITH HEART RATE IN THE 80S-90S. DR. SANCHEZTRATE NOTIFIED, WILL ORDER CARDIZEM PO.
--- NOTE | 2019-06-08 18:17 | NUR ---
PATIENT HAD AUDIBLE WHEEZES THROUGHOUT SHIFT. CARDIZEM DRIP WAS STOPPED MIDDAY. PATIEMT WAS SWITCHED TO PO DILTIAZEM BY DR. ALLEN AFTER A 15 SECOND RUN OF V-TACH. PATIENT WAS DELIRIOUS THROUGH THIS SHIFT, HOWEVER PATIENT'S LEVEL OF CONFUSION DECREASED THIS LATE AFTERNOON TO EVENING. PATIENT NOW ABLE TO HAVE SHORT, VERBAL INTERACTIONS WITH STAFF. DR. NINO CHANGED WOUND VAC DRESSING THIS MORNING. OXYGEN LEVEL WAS TITRATED DOWN FROM 5.5 L, TO 2 L AND MAINTAINED OXYGEN SATURATION OF 95+. WHEN OXYGEN WAS REMOVED FOR A TRIAL ON RA, PATIENT'S SATURATION DECREASED TO MID-80S. LATER THE PATIENT ACCIDENTALY REMOVED NASAL CANNULA, AGAIN O2 SAT DECREASED TO MID-80S. PATIENT HAS STAYED ON 2L AND IS STAYING IN UPPER 90S O2 SAT.
--- NOTE | 2019-06-08 19:00 | NUR ---
REPORT BEDSIDE REPORT RECEIVED FROM CHRIS RN AND GIACOMO IRENE. PT RESTING IN BED, CONFUSED, PLEASANT, DROWSY. PT HAS OXYGEN IN PLACE @ 6L/HFNC. VS WNL WITH AFIB NOTED PER MONITOR. RADHA TO [place]. RN REPORT DR LOUISE CHANGED WOUND VAC AND DRSG TODAY. PT HAD VTACH X2 TODAY AND RECEIVED ORDER TO INCREASE METOPROLOL AND ADDED DILTIAZEM WITH RATE 70-120s. ALSO INCREASED LASIX TODAY. RNs ALSO REPORTS PT HAD A LG BM TODAY. BS Q6 AND PT HAS NOT HAD ANY INSULIN. DOBHOFF CONTINUES AT GOAL RATE OF 50CC/HR. PT GETTING NS @ TKO PER RT UPPER ARM POWERGLIDE. THIS RN WILL ASSUME CARE OF PT THIS SHIFT.
[2019-06-09 03:53] LABS: BASOPHILS ABSOLUTE AUTO 0.01 K/mm3 (0.00-0.23); BASOPHILS PERCENT AUTO 0 % (0-2); EOSINOPHILS PERCENT AUTO 0 % (0-6); Hematocrit 34.2 % (33.0-51.0); Hemoglobin 9.8 g/dL (11.5-16.0); IMMATURE GRAN ABSOLUTE AUTO 0.12 K/mm3 (0.00-0.10); IMMATURE GRAN PERCENT AUTO 1 % (0-1); LYMPHOCYTES ABSOLUTE AUTO 0.66 K/mm3 (0.84-5.20); LYMPHOCYTES PERCENT AUTO 6 % (21-46); MONOCYTES ABSOLUTE AUTO 0.88 K/mm3 (0.16-1.47); MONOCYTES PERCENT AUTO 8 % (4-13); Mean Corpuscular HGB 25.5 pg (26.0-34.0); Mean Corpuscular HGB Conc 28.7 g/dL (31.5-36.5); Mean Corpuscular Volume 89 fL (80-100); Mean Platelet Volume 11.2 fL (9.1-12.4); NEUTROPHILS ABSOLUTE AUTO 8.75 K/mm3 (1.96-9.15); NEUTROPHILS PERCENT AUTO 84 % (41-73); NRBC ABSOLUTE 0.13 K/mm3 (0.00-0.02); NRBC Auto 1.2 /100 WBC (0.0-0.2); Platelet Count 315 K/mm3 (150-400); RDW Coefficient Variation 18.7 % (11.7-14.2); RDW Standard Deviation 61.1 fL (35.1-46.3); Red Blood Cell Count 3.84 M/mm3 (3.80-5.20); White Blood Cell Count 10.42 K/mm3 (4.00-11.30)
[2019-06-09 04:12] LABS: Albumin, Blood 2.2 g/dL (3.4-5.0); Albumin/Globulin Ratio 0.6 (0.8-1.8); Bilirubin, Total 0.3 mg/dL (0.1-1.0); Calcium, Blood 8.6 mg/dL (8.5-10.1); Creatinine, Blood 1.11 mg/dL (0.40-1.00); Globulin, Blood 3.6 g/dL (2.2-4.0); Phosphorus, Blood 4.9 mg/dL (2.5-4.9); Potassium, Blood 3.7 mmol/L (3.5-5.5); Total Protein, Blood 5.8 g/dL (6.4-8.2)
--- NOTE | 2019-06-09 05:39 | NUR ---
SHIFT SUMMARY PT REMAINS IN BED THIS SHIFT, CONFUSED, HALLUCINATIONS, UNABLE TO REORIENT PT. HEART RATE IRREGULAR, AFIB, RATE 70-120s, MEDS PER DOBHOFF TUBE ONLY. FEEDING INFUSING AT GOAL RATE OF 50cc/HR. NS @ TKO TO RT UPPER ARM POWERGLIDE. LUNGS WITH WHEEZES AND CRACKLES THROUGHOUT, WEARS BIPAP AT TIMES OR 6L HFNC, TITRATE ABLE FOR SAT >90%. BOWEL SOUNDS PRESENT, INCONT SM BM. EXTERNAL FIXATOR TO LLE, DRSG D/I WITH DRAIN IN PLACE. SKIN HAS MULTIPLE SKIN TEARS AND BRUISES SCATTERED OVER BODY, BLE & BUE ELEVATED ON PILLOWS. HOB ELEVATED 30". PT REMAINS NPO R/T FAILED SWALLOW STUDY. WILL CONTINUE TO MONITOR PT THIS SHIFT.
--- NOTE | 2019-06-09 08:30 | NUR ---
CARE ASSUMED REPORT RECEIVED, CARE ASSUMED AT 0700 FROM GIACOMO MUJICA. AT CHANGE OF SHIFT, PT HAD TAKEN BIPAP OFF AND O2 SAT'S WERE IN THE 70'S. NASAL CANNULA 6 LPM PLACED AND PT RECOVERED WITHIN A FEW MINUTES. PT ALERT, BUT CONFUSED ABOUT SITUATION. CALM AND COOPERATIVE. BREATHING EXTREMELY WHEEZY, LABORED BUT PT REPEATEDLY REFUSES TO WEAR M-SERIES. COMPLETE BEDBATH FOR LARGE, SOFT BOWEL MOVEMENT. MEPILEX TO COCCYX AND RIGHT LOWER THIGH CHANGED DUE TO STOOL. PT ABLE TO ASSIST SOME WITH REPOSITIONING AND FOLLOWS SOME COMMANDS, BUT DOES GET CONFUSED ABOUT WHAT SHE IS SUPPOSED TO BE DOING AND REQUIRES REDIRECTION. LEFT ANKLE HAS EXTERNAL FIXATION DEVICE, SITE C/D/I. GARCIA SECURED AND DRAINING. NGT WITH TUBE FEEDING INFUSING PER ORDERS. GIO AT PALLIATIVE CARE CONTACTED TO DISCUSS PLAN OF CARE.
--- NOTE | 2019-06-09 09:00 | NUR ---
SPEECH THERAPY AT BEDSIDE WORKING WITH PATIENT
--- NOTE | 2019-06-09 09:00 | NUR ---
OCCUPATIONAL THERAPY AT BEDSIDE WORKING WITH PATIENT
--- NOTE | 2019-06-09 11:54 | NUR ---
OCCUPATIONAL THERAPY AT BEDSIDE WORKING WITH PATIENT
--- NOTE | 2019-06-09 15:00 | NUR ---
PROVIDER COMMUNICATION DR. SANTOS TO BEDSIDE FOR ASSESSMENT. PT TO BE SURGICAL FLOOR STATUS WITH TELEMETRY.
--- NOTE | 2019-06-09 15:41 | NUR ---
PROVIDER COMMUNICATION DR. NINO TO BEDSIDE FOR ASSESSMENT OF RIGHT FOOT. CONTINUE WITH CURRENT PLAN, CONTINUE TO MONITOR FOOT AT THIS TIME, SEE MD NOTES.
--- NOTE | 2019-06-09 15:43 | NUR ---
PHYSICAL THERAPY TO BEDSIDE TO WORK WITH PATIENT
--- NOTE | 2019-06-09 16:00 | NUR ---
Clinical Visit: Pt is not oriented. She has been told that she is in the hospital, but per nurse, keeps asking where her dresser and her chair is. Discussed with Dr. Fragoso and nurse. Reviewed appropriateness for hospice care at this time. Pt will need to be able to swallow for recovery. This progress will be monitored. She is having nutrition per dobhoff tube at this time. She has a POLST form on file from 2016. She has chosen DNR/DNI with no artificial nutrition by tube. PEG tube is out of compliance with her POLST form if indicated. Palliative care to communicate with family as pt's condition unfolds. Call attempted, but was not answered. Pt lives at [facility]. Transfered with walker into wheelchair prior to ankle injury, per past pallitive notes in Mar 2019. Will follow up with pt and family tomorrow. Monitor pt's progress. No other concerns at this time.
--- NOTE | 2019-06-09 17:01 | NUR ---
SUMMARY/TRANSFER NOTIFIED THAT PT TO BE TRANSFERRED TO SURGICAL FLOOR. REPORT GIVEN TO GIACOMO BUTCHER. PT UPDATED AND AGREEABLE, BUT CONTINUES TO BE CONFUSED THINKING SHE IS AT HER OWN HOME. SHE SAYS SHE IS AT [facility] WHEN ASKED, BUT THEN SAYS, "BUT WHERE IS MY DRESSER AND RECLINER? I BOUGHT IT WHEN I KNEW I HAD TO STAY HERE AND COULDN'T TAKE CARE OF MYSELF." OTHERWISE, PT EXPRESSING NEEDS APPROPRIATELY. REQUESTS TO USE BEDPAN AND BE REPOSITIONED. PT ABLE TO ASSIST WITH REPOSITIONING AND ADL'S, BUT IS STILL PROFOUNDLY WEAK AND IS STILL BEING TRANSFERRED USING A CEILING LIFT. PT HAS HAD MULTIPLE LARGE SOFT STOOLS TODAY REQUIRING FULL BED CHANGES. LAXATIVES HELD. GARCIA CONTINUES TO DRAIN CLEAR, YELLOW URINE. VITALS STABLE, HR CONTINUES AFIB 90'S-120'S, ELEVATED WITH EXERTION. BLOOD PRESSURE CONSISTENTLY ELEVATED AFTER ADL'S, BUT IMPROVES. 02 SAT 90'S ON 6 LPM NASAL CANNULA. ORDER FOR CONTINUED PULSE OX TO CONTINUE UPON TRANSFERRING IN ADDITION TO TELEMETRY UPON TRANSFER. PT'S TUBE FEEDING EMPTY PRIOR TO TRANSFER. PT SENT WITH TUBING AND FORMULA. PT TRANSFERRED BY MILIND LYONS TO ROOM 226.
--- NOTE | 2019-06-09 17:05 | NUR ---
PALLIATIVE CARE SPOKE WITH DR. TOM DOUGHERTY PLAN OF CARE. GIO FROM PALLIATIVE CARE INVOLVED AND PLAN IS BEING MADE TO DISCUSS TREATMENT PLAN WITH FAMILY AND GET FAMILY INVOLVED IN DECISION MAKING FOR PATIENT.
--- NOTE | 2019-06-09 19:43 | NUR ---
SHIFT SUMMARY ASSUMED CARE AT 1700 AFTER TRANSFER FROM ICU. PT A&OX1, PLEASANTLY CONFUSED, LIFT TO TRANSFER TO BED. ORIF EXTERNAL FIXATION IN PLACE, WOUND VAC WNL. CONTINUOUS TUBE FEEDINGS AT 20 ML/HR WITH 100 MLS/HR Q4 FLUSH BY PUMP; MEDS CRUSHED AND FLUSHED INTO GI TUBE. GARCIA PATENT & DRAINING YELLOW URINE, STAT LOCK ON, OFF FLOOR. MULT SOFT BMS TODAY, ATTENDS ON. REPORT GIVEN TO HOWARD GOODEN.
[2019-06-10 05:22] LABS: BASOPHILS ABSOLUTE AUTO 0.02 K/mm3 (0.00-0.23); BASOPHILS PERCENT AUTO 0 % (0-2); EOSINOPHILS PERCENT AUTO 0 % (0-6); Hematocrit 33.2 % (33.0-51.0); Hemoglobin 9.4 g/dL (11.5-16.0); IMMATURE GRAN ABSOLUTE AUTO 0.15 K/mm3 (0.00-0.10); IMMATURE GRAN PERCENT AUTO 1 % (0-1); LYMPHOCYTES ABSOLUTE AUTO 0.93 K/mm3 (0.84-5.20); LYMPHOCYTES PERCENT AUTO 7 % (21-46); MONOCYTES PERCENT AUTO 8 % (4-13); Mean Corpuscular HGB 24.9 pg (26.0-34.0); Mean Corpuscular HGB Conc 28.3 g/dL (31.5-36.5); Mean Corpuscular Volume 88 fL (80-100); Mean Platelet Volume 11.1 fL (9.1-12.4); NEUTROPHILS ABSOLUTE AUTO 10.64 K/mm3 (1.96-9.15); NEUTROPHILS PERCENT AUTO 84 % (41-73); NRBC ABSOLUTE 0.12 K/mm3 (0.00-0.02); NRBC Auto 0.9 /100 WBC (0.0-0.2); Platelet Count 290 K/mm3 (150-400); RDW Coefficient Variation 19.1 % (11.7-14.2); RDW Standard Deviation 61.4 fL (35.1-46.3); Red Blood Cell Count 3.77 M/mm3 (3.80-5.20); White Blood Cell Count 12.74 K/mm3 (4.00-11.30)
[2019-06-10 05:50] LABS: Calcium, Blood 8.5 mg/dL (8.5-10.1); Creatinine, Blood 1.02 mg/dL (0.40-1.00); Magnesium, Blood 2.5 mg/dL (1.6-2.4); Potassium, Blood 3.6 mmol/L (3.5-5.5)
--- NOTE | 2019-06-10 06:31 | NUR ---
SHIFT SUMMARY PT A/O, PLEASANT AND ABLE TO REORIENTATE EASILY. ON 4L NC WITH SP02 RANGING FROM 89-92. ABLE TO USE FLUTTER VALVE AND TCDB. WAS ONLY WILLING TO WEAR CPAP FOR APPROX 45 MINS TONIGHT DESPITE ENCOURAGEMENT AND EDUCATION. IS NPO, WITH MEDICATIONS CRUSHED AND ADMINISTERED THROUGH DOBHOFF ONLY. DOBBHOF IN PLACE WITH FEEDINGS AT 30 AND 100ML FLUSH EVERY 4HRS, HOB ABOVE 45 DEGREES. AT 0600 THIS MORNING PT HAD LARGE EMESIS, DOBBHOF CLAMPED AT THIS TIME; STATES SHE IS FEELING BETTER NOW. MEDICATED 2X FOR NAUSEA WITH IV ZOFRAN T/O SHIFT. DENIED PAIN. HAD 3 LARGE UNFORMED BM. GARCIA TO GRAVITY DRAIN W/YELLOW URINE. Q2 TURNS WITH LLE ELEVATED ON PILLOWS. LLE BARBARA WRAP C/D/I, WOUND VAC IN PLACE WITH NO DRAINAGE. WILL CONT TO MONITOR AND GIVE REPORT TO ONCOMING RN.
--- NOTE | 2019-06-10 07:30 | NUR ---
ENCOURAGED PT TO USE FLUTTER WITH DEMOSTRATION PT REQ A SWAB ALSO PT STILL HAVING NAUSEA NO EMESIS SINCE THIS AM TF ON HOLD WILL HOLD FOR 4 HRS
--- NOTE | 2019-06-10 11:48 | NUR ---
dr cisneros by to see pt
--- NOTE | 2019-06-10 13:43 | NUR ---
PT REQ A NEB TX RT CALLED ALSO TALKED WITH PALLATIVE CARE EARLIER AFTER DR SANTOS CAME TO SEE PT WILL WAIT TO REMOVE HER TUBES UNTIL SEEN BY THEM HOSPICE ALSO ORDERED DR SANTOS TALKED WITH PT'S DAUIGHTER AND PT ABOUT COMFORT CARE
--- NOTE | 2019-06-10 15:56 | NUR ---
PT'S DAUGHTER CALLED UPDATE GIVEN
--- NOTE | 2019-06-10 17:04 | NUR ---
REMOVED DOBOHOFF PALLATIVE CARE TALKED WITH PT SHE HAD THICKEND WATER EARLIER TO DRINK
--- NOTE | 2019-06-10 17:20 | NUR ---
dr valdes by to see pt updated him on comfort care he changed pt's dressing
--- NOTE | 2019-06-10 17:30 | NUR ---
Clinical Visit/ Comfort Care Pt is alert, oriented to situation, place, self. She is not confused at this time. She tells me that she lives at [facility]. She enjoys her friends there. She reports that she has been living there for some years now; the adjustment to living there was difficult, however, she made the social ajustment. Reviewed current illness and prognosis. She reports that she doesn't want to , but she verbalizes understanding of her disease process and problems. She verbalizes that she does want to eat, since this gives her pleasure. She voices understanding that if she eats, the food may and likely will go into her lungs. She is asking for teaspoons of thickened lemon water. This is complied with, due to her understanding of risk. She is not coughing with the teaspoons, however, likely silent aspirating. She states that she doesn't feel like it is going in her lungs and reports that this is soothing to her to have something to drink. She denies pain, denies anxiety. Therapeutic time spent with pt. Pt explores life review, therapeutic listening engaged. Her daughter is coming to see her later tonight. She states that she has things to say to her, and conversations to have. Encouraged this conversation. Reviewed available medications for symptoms. She verbalizes understanding of the purpose of comfort medications. No other concerns from pt. Will remain available.
--- NOTE | 2019-06-10 19:15 | NUR ---
pt daughter came in update given on how she ate dinner assisted her with mashed potatoe and some thickened water also some apple sauce pt has a delayed cough 30 -40 min after
--- NOTE | 2019-06-11 04:16 | NUR ---
SHIFT SUMMARY [id number]. PATIENT HAS BEEN REQUESTING PAIN MEDS DURING SHIFT FOR RIGHT FOOT PAIN. MEDICATED PER EMAR. PT TOLERATES WELL AND HAS STATED RELIEF AFTER RECEIVING. PT REPOSITIONED PRN SHE REQUESTS. PT ASSISTS WITH ROLLING. PT REPORTS "SPITTING UP" BUT DENIES NAUSEA AND DECLINED NAUSEA MEDS. COUGHING WITH SIPS OF WATER AND WHEN EATING.
--- NOTE | 2019-06-11 10:07 | NUR ---
Comfort Care Assessment: Spoke with pt's GREEN END DEPARTMENT SUPERVISOR. She had taken care of her yesterday. It appears that pt's mentation has changed drastically from last night. Last night, pt was eating and drinking, coherant and awake. This AM, pt has not been awake, has not eaten, has not assisted with repositioning, which is a change from yesterday's mentation and function. From the doorway, this RN notices slightly apnic breathing pattern. Assessment of pt: She does wake up with gentle shoulder shake and name cue. She appears to have difficulty opening her eyes. She states that she is fatigued. She denies pain and just wants to go back to sleep. Pt appears flushed, no mottling on hands and feet, extremities warm. Reviewed with urgent care nurse practitioner and pt's nurse. Pt does have an abnormal breathing pattern when sleeping. This is discussed. Pt appears to be sedated from medications and may not be actively dying. This RN has followed this pt since she was in the ICU. Her abnormal apnic-appearing breathing pattern was noted by ICU nurses and discussed prior. Pt had refused bipap in the ICU, even though it was indicated. Pt does have oxygen on at this time. Pt may sleep until her medication wears off and be awake again, based on prior knowledge of her breathing pattern and current assessment. Discussed with urgent care nurse practitioner and nursing. Palliative care to remain available if needed for symptom management. Pt would benefit from a scopolomine patch. She sounds a little wet in her throat, although this could be from her eating last night and poor swallowing.
--- NOTE | 2019-06-11 18:42 | NUR ---
SUMMARY NO ACUTE CHANGES T/O SHIFT. PT SLEEPING MOST OF DAY UNLESS AWAKENED. WHEN AWAKENED W/REPOSITIONING, DENIES PAIN. SCOPALAMINE PATCH PLACE FOR SECRETIONS BEHIND R EAR. APPEARS TO HAVE AGONAL BREATHING BUT AWAKENS BRIEFLY TO VOICE AND TOUCH.
--- NOTE | 2019-06-12 07:31 | NUR ---
SUMMARY NO ACUTE CHANGES THIS SHIFT.
--- NOTE | 2019-06-12 08:11 | NUR ---
pt felt warm to touch, removed top blanket
--- NOTE | 2019-06-12 11:01 | NUR ---
CATH CARE COMPLETED BY MICROFILM TECHNICIAN AND MICROFILM TECHNICIAN STUDENT
--- NOTE | 2019-06-12 11:48 | NUR ---
PT AT 1140. CONFIRMED CESSATION OF BREATHING AND HEARTBEAT W/NEO GOODEN. FAMILY ARRIVED TO FLOOR SHORTLY AFTER, RN ADVISED PT HAD PASSED. DAUGHTER NOW IN ROOM W/PT. NURSING LABORER WHARF NOTIFIED. NOTIFIED DR SANTOS.
--- NOTE | 2019-06-12 13:54 | NUR ---
[facility] PICKED UP PT.
== END 2019-06-12 14:30 | DRG 492 ==
LOC: ER 19:51 → SURS 22:27 → ICUW 06-05 05:00 → SURS 06-09 17:04
PROVIDERS: Emergency Medicine; Family Medicine; Internal Medicine; Orthopaedic Surgery; ADMIT Internal Medicine
PROC: 0QHH05Z Insertion of External Fixation Device into Left Tibia, Open Approach (ICD-10-PCS; principal; 2019-05-31 22:00)
PROC: 0HDNXZZ Extraction of Left Foot Skin, External Approach (ICD-10-PCS; 2019-06-03)
DX: S82.842B Displaced bimalleolar fracture of left lower leg, initial encounter for open fracture type I or II (principal); I50.33 Acute on chronic diastolic (congestive) heart failure; J96.01 Acute respiratory failure with hypoxia; J18.0 Bronchopneumonia, unspecified organism; I13.0 Hypertensive heart and chronic kidney disease with heart failure and stage 1 through stage 4 chronic kidney disease, or unspecified chronic kidney disease; J44.0 Chronic obstructive pulmonary disease with (acute) lower respiratory infection; G70.00 Myasthenia gravis without (acute) exacerbation; N18.3 Chronic kidney disease, stage 3 (moderate); E11.22 Type 2 diabetes mellitus with diabetic chronic kidney disease; G47.33 Obstructive sleep apnea (adult) (pediatric); Z99.81 Dependence on supplemental oxygen; I48.0 Paroxysmal atrial fibrillation; Z86.73 Personal history of transient ischemic attack (TIA), and cerebral infarction without residual deficits; W07.XXXA Fall from chair, initial encounter; Y93.9 Activity, unspecified; Y92.129 Unspecified place in nursing home as the place of occurrence of the external cause; Z66 Do not resuscitate; F03.90 Unspecified dementia, unspecified severity, without behavioral disturbance, psychotic disturbance, mood disturbance, and anxiety; Z79.02 Long term (current) use of antithrombotics/antiplatelets; I16.0 Hypertensive urgency; R13.0 Aphagia; D64.9 Anemia, unspecified; E87.70 Fluid overload, unspecified
CPT/HCPCS: 29505; 31720; 36415; 36430; 36600; 51703; 71045; 72170; 73590; 73600; 73610; 73620; 73630; 80048; 80053; 81003; 82803; 82947; 83036; 83735; 83880; 84100; 84145; 84484; 85025; 85610; 85730; 86140; 86850; 86900; 86901; 86923; 90471; 90714; 92526; 92610; 93005; 93010; 93308; 93321; 94640; 94660; 94667; 94760; 94762; 96365-59; 96367-59; 96375-59; 97110; 97162; 97166; 97530; 99285-25; A9270; A9270-GY; C1713; C1751; J0690; J1100; J1170; J1580; J1650; J1720; J1815; J1940; J1956; J2270; J2370; J2405; J2704; J2710; J3010; J3370; J3480; J7030; J7042; J7050; J7120; P9016